=== PATIENT | female | born 1945 | race Caucasian/White ===

== ENCOUNTER 2020-02-14 12:59 | Outpatient (RCR) | payer MEDICARE, SELFPAY | END 2020-03-24 14:56 | disposition other institution (70) | LOC: HO.PT 12:59 | PROVIDERS: PCP Internal Medicine Geriatric Medicine; Visit Provider Orthopaedic Surgery | DX: S42.002D Fracture of unspecified part of left clavicle, subsequent encounter for fracture with routine healing (principal) | CPT/HCPCS: 97110; 97162; 97535 ==

== ENCOUNTER 2020-09-09 11:36 | Emergency (ER) | payer MEDICARE, SELFPAY ==
--- NOTE | ~2020-09-09 | XR_ITS ---
EXAMINATION: XR ABDOMEN KUB CLINICAL INDICATION: No bowel movements for 2 weeks. COMPARISON: None TECHNIQUE: AP view of the abdomen. FINDINGS: There is moderate scattered stool and gas seen throughout the colon without significant distention. Moderate stool is seen in the rectum and sigmoid colon. The small bowel loops are normal caliber. There is no organomegaly. No gross bony abnormality. XR/XR KUB IMPRESSION: Mild rectal impaction with moderate constipation.
[2020-09-09 12:20] VITALS: BP 115/78; PULSE 106; RESP 16; TEMP 36.8; O2SAT 94; BMI 18.5
[2020-09-09 12:37] LABS: MANUAL DIFF FLAG NO
[2020-09-09 12:40] LABS: Basophils Absolute Auto 0.1 X10*3/uL (0.0-0.2); Basophils Percent Auto 0.6 % (0-2); Eosinophils Absolute Auto 0.4 X10*3/uL (0.0-0.4); Eosinophils Percent Auto 3.5 % (0-4); Hematocrit 48.9 % (37-47); Hemoglobin 15.6 g/dl (12.0-16.0); Imm Gran Abs Auto 0.04 X10*3/uL (0.00-0.03); Imm Gran Pct Auto 0.3 % (0.0-0.4); Lymphocytes Absolute Auto 3.3 X10*3/uL (1.2-4.9); Lymphocytes Percent Auto 28.4 % (20-40); Mean Corpuscular HGB Conc 31.9 g/dl (31.0-35.0); Mean Corpuscular Hemoglobin 29.7 pg (27.0-33.0); Mean Corpuscular Volume 93.1 fL (80-98); Mean Platelet Volume 10.5 fL (9.4-12.3); Monocytes Absolute Auto 0.7 X10*3/uL (0.1-1.2); Monocytes Percent Auto 6.3 % (2-11); Neutrophils Absolute Auto 7.1 X10*3/uL (2.0-8.3); Neutrophils Percent Auto 60.9 % (45-73); Platelet Count 291 X10*3/uL (160-400); Red Blood Count 5.25 X10*6/uL (4.20-5.50); Red Cell Distribution Width 14.7 % (11.0-16.0); White Blood Count 11.6 X10*3/uL (4.8-10.8)
[2020-09-09 13:05] LABS: Anion Gap 12 (12-20); Blood Urea Nitrogen 16 mg/dL (9-16); Calcium 10.5 mg/dL (8.4-10.2); Carbon Dioxide 31 mmol/L (22-29); Chloride 103 mmol/L (96-108); Creatinine Clr Calc Pharmacy 44.9; Estimated Glomerular Filt Rate > 60; Glucose Random 115 mg/dL (60-115); Sodium 142 mmol/L (135-145)
--- NOTE | 2020-09-09 15:51 | ED.GENADULT ---
HPI - General Adult General Chief complaint: General Medical Stated complaint: constipated x 3 weeks Time Seen by Provider: 09/09/20 15:51 Source: patient Mode of arrival: ambulatory Limitations: no limitations History of Present Illness HPI narrative: 75 y/o female with history of Alzehimer's dementia, diabetes, HTN, HLD, constipation presents to the ED from home with her family with constipation x2 weeks. Patient is non-verbal and history is provided by her son. He reports she has been taking her metamucil and stool softner with no bowel movement in 2 weeks. She has been eating and drinking normally. She has had constipation in the past requiring disimpaction. Her family gave her another laxative medication that was successful for her in the past this time it did not work. Today she started having vomiting so they brought her in for evaluation. No fever, chills. complaint: constipation Onset (ago): week(s) (2) Location: abdomen Radiation: non-radiation Severity: moderate Relieving factors: none Exacerbating factors: none Associated symptoms: denies other symptoms Treatments prior to arrival: other (laxative) Related Data Previous Rx's Medication Instructions Recorded polyethylene glycol 3350 [Miralax] 17 g PO DAILY #119 g 09/09/20 sodium phosphates [Fleet Enema] 118 ml [place] BEDTIME PRN #532 ml 09/09/20 Allergies Allergy/AdvReac Type Severity Reaction Status Date / Time Penicillins [PENICILLINS] Allergy Mild UNKNOWN Verified 09/09/20 12:18 morphine [Morphine] Allergy Unknown UNKNOWN Verified 09/09/20 12:18 From Percocet Allergy Unknown UNKNOWN Uncoded 11/28/19 14:56 Review of Systems Review of Systems: Constitutional: No Fever, No Chills ENT/Mouth: No Swallowing Difficulty Cardiovascular: No SOB, No Orthopnea, No Edema Respiratory: No Cough, No Sputum, No Wheezing, No dyspnea Gastrointestinal: + Nausea,+ Vomiting, No Diarrhea, No abdominal Pain Skin: No Skin Lesions, No rash Neuro: + Weakness Heme/Lymph: No Bruising, No Lymphadenopathy PMFSH Past Medical History Attestation statement: The following information was validated with the patient. Medical History Alzheimer disease Diabetes GERD (gastroesophageal reflux disease) HTN (hypertension) Hyperlipidemia Social History Social History Advance Directives: No Advance Directives Information Provided: Yes Physical Exam Vital Signs: Vital Signs: Last Vital Signs Temp 97.9 F 09/09/20 16:00 Pulse 82 09/09/20 16:00 Resp 15 09/09/20 16:00 BP 140/69 H 09/09/20 16:00 Pulse Ox 95 09/09/20 16:00 Body Mass Index 18.5 Appearance: Lethargic,. No acute distress. Eyes: Pupils equal, round and reactive to light. ENT: Pharynx normal. Neck: Normal inspection. Neck supple. CVS: Normal heart rate and rhythm. Pulses normal. Respiratory: No respiratory distress. Breath sounds normal. Abdomen: Soft and nontender. +BS x4 Skin: Skin warm and dry. Normal skin color. Normal skin turgor. No rashes. Extremities: No lower extremity edema. Neuro: nonverbal, does not follow commands. Course Course Course Narrative: 75 y/o female presenting with constipation x2 weeks and new onset vomiting today. KUB without any air/fluid levels of signs of obstruction. Abd is soft. D/w Dr. Patton. Hold off on CT scan for now. Will give IVF, Zofran and assess need for manual disimpaction. Reevaluation(s) Reevaluation #1: Manual disimpaction successful with large volume soft brown stool in rectal vault. Patient tolerated well. Given additional fleet enema and PO dulcolax. No further nausea or vomiting. Recommend following up with for further assessment of recurrent, severe constipation. Stable for d/c home with family. Procedures Rectal Disimpaction Time out performed rectal disimpaction: No Indication: fecal impaction Procedural Sedation: No Sedation/Analgesia: none Technique: manual disimpaction with gloved finger Result: significant stool output Patient Tolerated Procedure: well Complications: none Medical Decision Making Lab Data Result diagrams: 09/09/20 12:31 09/09/20 12:31 Labs: Lab Results 09/09/20 09/09/20 Range/Units 12:31 12:31 WBC 11.6 H (4.8-10.8) X10*3/uL RBC 5.25 (4.20-5.50) X10*6/uL Hgb 15.6 (12.0-16.0) g/dl Hct 48.9 H (37-47) % MCV 93.1 (80-98) fL MCH 29.7 (27.0-33.0) pg MCHC 31.9 (31.0-35.0) g/dl RDW 14.7 (11.0-16.0) % Plt Count 291 (160-400) X10*3/uL MPV 10.5 (9.4-12.3) fL Immature Gran % (Auto) 0.3 (0.0-0.4) % Neut % (Auto) 60.9 (45-73) % Lymph % (Auto) 28.4 (20-40) % [place] % (Auto) 6.3 (2-11) % Eos % (Auto) 3.5 (0-4) % Baso % (Auto) 0.6 (0-2) % Lymph # (Auto) 3.3 (1.2-4.9) X10*3/uL [place] # (Auto) 0.7 (0.1-1.2) X10*3/uL Eos # (Auto) 0.4 (0.0-0.4) X10*3/uL Baso # (Auto) 0.1 (0.0-0.2) X10*3/uL Abs Immat Gran (auto) 0.04 H (0.00-0.03) X10*3/uL Absolute Neuts (auto) 7.1 (2.0-8.3) X10*3/uL Absolute Nucleated RBC 0.000 (0.0-0.012) X10*3/uL Nucleated RBC % (auto) 0.0 (0.0-0.2) /100WBC Sodium 142 (135-145) mmol/L Potassium 4.0 (3.3-5.1) mmol/L Chloride 103 (96-108) mmol/L Carbon Dioxide 31 H (22-29) mmol/L Anion Gap 12 (12-20) BUN 16 (9-16) mg/dL Creatinine 0.85 (0.5-1.4) mg/dL Estim Creat Clear Calc 44.9 Estimated GFR > 60 Random Glucose 115 (60-115) mg/dL Calcium 10.5 H (8.4-10.2) mg/dL Discharge Plan Discharge Clinical Impression: Constipation Qualifiers: Constipation type: unspecified constipation type Qualified Code(s): K59.00 - Constipation, unspecified Patient Disposition: Home, Self-Care Instructions: Constipation (ED), Fleet Enema (ED) Additional Instructions: Increase oral fluid intake. Start taking Miralax 17 grams each morning. Follow up with GI specialist for further management. If you develop new or worsening symptoms call 911 or come back to the ER for further evaluation. Prescriptions: New polyethylene glycol 3350 [Miralax] 17 gram/dose powder 17 g PO DAILY Qty: 119 RF: 0 Fleet Enema 19-7 gram/118 mL enema 118 ml [place] BEDTIME PRN (Reason: constipation) Qty: 532 RF: 0 Referrals: Cresencio Ramsay [Physician] - 1 week (recurrent, severe constipation requiring disimpaction)
[2020-09-09 16:00] VITALS: BP 140/69; PULSE 82; RESP 15; TEMP 36.6; O2SAT 95
[2020-09-09] MEDS: 0.9 % Sodium Chloride 1,000 ML 999 ML IVCONT (16:38)
[2020-09-09] MEDS: ondansetron HCL 4 MG/2 ML VIAL IVPUSH (16:39)
[2020-09-09] MEDS: Sodium Phosphate,Mono-Dibasic 133 ML ENEMA PR ×2 (16:46→18:41)
[2020-09-09] MEDS: bisacodyL 5 MG TABLET.DR 10 MG PO (18:41)
[2020-09-09 18:43] VITALS: BP 154/95; PULSE 88; RESP 16; O2SAT 95
--- NOTE | 2020-09-09 19:04 | PC.NURSE ---
Enema administered to patient per MAY. Will re eval patient in 30 mins. Plan for discharge after completion of fleet enema.
[2020-09-09 19:07] LABS: Glucose Urine UA NEG (NEG); Leukocyte Esterase Urine TRACE (NEG); Nitrite Urine NEG (NEG); Specific Gravity - Urine >= 1.030 (1.005-1.025); UACC Culture Trigger YES; Urine Blood NEG (NEG); Urine Ketones NEG (NEG); Urine Protein TRACE MG/DL (NEG-TRACE)
[2020-09-09 19:10] LABS: Appearance Urine CLEAR; Color Urine YELLOW
[2020-09-09 19:17] LABS: Bacteria Urine 1+ /LPF; Mucus Urine 4+ /LPF; RBC Urine 0-2 /HPF (0); Squamous Epithelial Cell Urine TRACE /LPF; UACC CULT YES
== END 2020-09-09 20:23 | disposition home or self-care (01) ==
PROVIDERS: Emergency Provider Emergency Medicine; PCP Internal Medicine
DX: K59.00 Constipation, unspecified (principal); E11.9 Type 2 diabetes mellitus without complications; I10 Essential (primary) hypertension; G30.9 Alzheimer's disease, unspecified; F02.80 Dementia in other diseases classified elsewhere, unspecified severity, without behavioral disturbance, psychotic disturbance, mood disturbance, and anxiety
CPT/HCPCS: 36415; 51701; 74018; 80048; 81001; 85025; 87086; 96361; 96374; 99284; 99285; J2405

== ENCOUNTER 2021-02-13 21:18 | Inpatient (IN) | payer MEDICARE, SELFPAY ==
[2021-02-13 21:27] VITALS: BP 118/70; PULSE 118; O2SAT 92
[2021-02-13 21:32] VITALS: BP 115/82; PULSE 125; RESP 16; TEMP 36.2; O2SAT 95; BMI 18.3
--- NOTE | 2021-02-13 21:38 | ECG_ITS ---
Test Reason : SYNCOPE Blood Pressure : / mmHG Vent. Rate : 124 BPM Atrial Rate : 124 BPM P-R Int : 118 ms QRS Dur : 072 ms QT Int : 328 ms P-R-T Axes : 033 -66 052 degrees QTc Int : 471 ms Sinus tachycardia Left anterior fascicular block Anterior infarct , age undetermined Abnormal ECG When compared with ECG of 03-JUL-2014 11:12, No significant change was found Referred By: Generic ED Physician Electronically Signed By:QI DELGADILLO
--- NOTE | 2021-02-13 23:16 | ED.GENADULT ---
HPI - General Adult General Chief complaint: Weakness Stated complaint: syncopal episode Time Seen by Provider: 02/13/21 23:03 Source: family and EMS Mode of arrival: EMS Limitations: other (Nonverbal at baseline, advanced Alzheimer's) History of Present Illness HPI narrative: Patient is brought to the emergency room by EMS. The reports that the patient at baseline can only walk but he has to hold her. The states that patient use the restroom, he helped her to stand up and walked her back to the bed. The patient told her I backwards, the along to her and lowered her to the bed. Patient did not fall, did not lose consciousness. Family is unsure if the patient actually lost consciousness, but it was fairly brief, few seconds. Then patient was put in bed and patient went to sleep until EMS got her. The reports that they have noted that since yesterday the patient is less active than usual, usually patient is able to smile, seems to listing to conversations. Today, patient seems more detached. Related Data Previous Rx's Medication Instructions Recorded polyethylene glycol 3350 17 17 g PO DAILY #119 g 09/09/20 gram/dose oral powder (Miralax) sodium phosphates 19 gram-7 118 ml [place] BEDTIME PRN #532 ml 09/09/20 gram/118 mL enema (Fleet Enema) Allergies Allergy/AdvReac Type Severity Reaction Status Date / Time Penicillins [PENICILLINS] Allergy Mild UNKNOWN Verified 09/09/20 12:18 morphine [Morphine] Allergy Unknown UNKNOWN Verified 09/09/20 12:18 From Percocet Allergy Unknown UNKNOWN Uncoded 11/28/19 14:56 Review of Systems Review of Systems: Yes Unobtainable due to mental condition [facility] Past Medical History Medical History Alzheimer disease Diabetes GERD (gastroesophageal reflux disease) HTN (hypertension) Hyperlipidemia Social History Social History Advance Directives: No Advance Directives Information Provided: Yes Physical Exam Vital Signs: Vital Signs: Last Vital Signs Temp 100.0 F 02/13/21 23:40 Pulse 111 H 02/13/21 23:40 Resp 18 02/13/21 23:40 BP 111/82 02/13/21 23:40 Pulse Ox 98 02/13/21 23:40 BMI result Body Mass Index 18.3 Const: Other: Appearance: Alert. NonverbalNo acute distress. Eyes: Pupils equal, round and reactive to light. ENT: Pharynx normal. Neck: Normal inspection. Neck supple. No lymph nodes noted. No crepitus CVS: Tachycardic, heart rate approximately 120, Pulses normal. Normal S1 and S2 Respiratory: No respiratory distress. Breath sounds normal. No Wheezing. No rales Abdomen: Soft and nontender. No rigidity. No distention. Skin: Skin cool and dry. Normal skin color. Normal skin turgor. Extremities: No lower extremity edema. Neuro: Patient unable to cooperate due to history of advanced Alzheimer's dementia. Does not seem to have any acute stroke-like symptoms. Course Course Course Narrative: Patient was started on D5W for hypernatremia and ceftriaxone for the UTI. Patient being admitted. Patient's troponin is 24.3. No acute EKG changes. Medical Decision Making Lab Data Result diagrams: 02/13/21 23:57 02/13/21 23:57 Labs: Lab Results 02/13/21 02/13/21 02/13/21 Range/Units 23:57 23:57 23:57 WBC 14.0 H (4.8-10.8) X10*3/uL RBC 5.84 H (4.20-5.50) X10*6/uL Hgb 17.4 H (12.0-16.0) g/dl Hct 57.8 H (37.0-47.0) % MCV 99.0 H (80.0-98.0) fL MCH 29.8 (27.0-33.0) pg MCHC 30.1 L (31.0-35.0) g/dl RDW 13.6 (11.0-16.0) % Plt Count 295 (160-400) X10*3/uL MPV 11.9 (9.4-12.3) fL Immature Gran % (Auto) 0.4 (0.0-0.4) % Neut % (Auto) 67.1 (45-73) % Lymph % (Auto) 25.3 (20-40) % [place] % (Auto) 5.8 (2-11) % Eos % (Auto) 0.9 (0-4) % Baso % (Auto) 0.5 (0-2) % Lymph # (Auto) 3.5 (1.2-4.9) X10*3/uL [place] # (Auto) 0.8 (0.1-1.2) X10*3/uL Eos # (Auto) 0.1 (0.0-0.4) X10*3/uL Baso # (Auto) 0.1 (0.0-0.2) X10*3/uL Abs Immat Gran (auto) 0.05 H (0.00-0.03) X10*3/uL Absolute Neuts (auto) 9.4 H (2.0-8.3) x10*3/uL Absolute Nucleated RBC 0.000 (0.0-0.012) X10*3/uL Nucleated RBC % (auto) 0.0 (0.0-0.2) /100WBC PT 12.8 (9.9-13.0) SEC INR 1.1 (0.9-1.1) Sodium 155 H (135-145) mmol/L Potassium 4.6 (3.3-5.1) mmol/L Chloride 119 H (96-108) mmol/L Carbon Dioxide 22 (22-29) mmol/L Anion Gap 19 (12-20) BUN 53 H (9-16) mg/dL Creatinine 1.27 (0.5-1.4) mg/dL Estim Creat Clear Calc 27.4 Estimated GFR 41 Random Glucose 174 H (60-115) mg/dL Calcium 11.0 H (8.4-10.2) mg/dL Total Bilirubin 0.5 (0.0-1.0) mg/dL Direct Bilirubin 0.2 (0.0-0.5) mg/dL AST 52 H (5-31) U/L ALT 90 H (0-31) U/L Alkaline Phosphatase 119 H (39-117) U/L Troponin I High Sens (<3.5-17.0) ng/L Total Protein 8.9 H (6.5-8.0) g/dL Albumin 4.4 (3.5-5.0) g/dL Urine Color Urine Appearance Urine pH (5.0-8.0) Ur Specific [place] (1.005-1.025) Urine Protein (NEG-TRACE) MG/DL Urine Glucose (UA) (NEG) MG/DL Urine Ketones (NEG) MG/DL Urine Blood (NEG) Urine Nitrite (NEG) Ur Leukocyte Esterase (NEG) Urine RBC (0) /HPF Urine WBC (0-4) /HPF Ur Squamous Epith Cells /LPF Ur Renal Epithelial Cell /LPF Calcium Oxalate Crystal /LPF Amorphous Sediment /LPF Urine Bacteria /LPF COVID-19 (PETROS) (Negative) COVID-19 Clin Com 02/13/21 02/13/21 02/13/21 Range/Units 23:57 23:58 23:58 WBC (4.8-10.8) X10*3/uL RBC (4.20-5.50) X10*6/uL Hgb (12.0-16.0) g/dl Hct (37.0-47.0) % MCV (80.0-98.0) fL MCH (27.0-33.0) pg MCHC (31.0-35.0) g/dl RDW (11.0-16.0) % Plt Count (160-400) X10*3/uL MPV (9.4-12.3) fL Immature Gran % (Auto) (0.0-0.4) % Neut % (Auto) (45-73) % Lymph % (Auto) (20-40) % [place] % (Auto) (2-11) % Eos % (Auto) (0-4) % Baso % (Auto) (0-2) % Lymph # (Auto) (1.2-4.9) X10*3/uL [place] # (Auto) (0.1-1.2) X10*3/uL Eos # (Auto) (0.0-0.4) X10*3/uL Baso # (Auto) (0.0-0.2) X10*3/uL Abs Immat Gran (auto) (0.00-0.03) X10*3/uL Absolute Neuts (auto) (2.0-8.3) x10*3/uL Absolute Nucleated RBC (0.0-0.012) X10*3/uL Nucleated RBC % (auto) (0.0-0.2) /100WBC PT (9.9-13.0) SEC INR (0.9-1.1) Sodium (135-145) mmol/L Potassium (3.3-5.1) mmol/L Chloride (96-108) mmol/L Carbon Dioxide (22-29) mmol/L Anion Gap (12-20) BUN (9-16) mg/dL Creatinine (0.5-1.4) mg/dL Estim Creat Clear Calc Estimated GFR Random Glucose (60-115) mg/dL Calcium (8.4-10.2) mg/dL Total Bilirubin (0.0-1.0) mg/dL Direct Bilirubin (0.0-0.5) mg/dL AST (5-31) U/L ALT (0-31) U/L Alkaline Phosphatase (39-117) U/L Troponin I High Sens 24.3 H (<3.5-17.0) ng/L Total Protein (6.5-8.0) g/dL Albumin (3.5-5.0) g/dL Urine Color DK YELLOW Urine Appearance TURBID Urine pH 6.0 (5.0-8.0) Ur Specific [place] 1.025 (1.005-1.025) Urine Protein 1+ H (NEG-TRACE) MG/DL Urine Glucose (UA) NEG (NEG) MG/DL Urine Ketones NEG (NEG) MG/DL Urine Blood 2+ H (NEG) Urine Nitrite NEG (NEG) Ur Leukocyte Esterase 3+ H (NEG) Urine RBC 5-9 H (0) /HPF Urine WBC 15-29 H (0-4) /HPF Ur Squamous Epith Cells 1+ /LPF Ur Renal Epithelial Cell TRACE /LPF Calcium Oxalate Crystal 1+ /LPF Amorphous Sediment TRACE /LPF Urine Bacteria 3+ /LPF COVID-19 (PETROS) Negative (Negative) COVID-19 Clin Com See Note ECG Data Attestation: I personally reviewed and interpreted this ECG as follows: (Sinus tachycardia, 124, no C7 visualization, no T-wave inversion, QTC 471) Discharge Plan Discharge Clinical Impression: Acute UTI, Acute hypernatremia, Near syncope Patient Disposition: Admitted As Inpatient
[2021-02-13 23:40] VITALS: BP 111/82; PULSE 111; RESP 18; TEMP 37.8; O2SAT 98
[2021-02-14] VITALS (9 sets, daily range): BP systolic 97–116; BP diastolic 63–78; PULSE 60–85; RESP 16–18; TEMP 36.2–36.9; O2SAT 94–96
[2021-02-14 00:09] LABS: MANUAL DIFF FLAG NO
[2021-02-14] MEDS: 0.9 % Sodium Chloride 1,000 ML 999 ML IVCONT (00:12)
[2021-02-14 00:17] LABS: Hemoglobin 17.4 g/dl (12.0-16.0); Imm Gran Pct Auto 0.4 % (0.0-0.4)
[2021-02-14 00:19] LABS: Basophils Absolute Auto 0.1 X10*3/uL (0.0-0.2); Basophils Percent Auto 0.5 % (0-2); Eosinophils Absolute Auto 0.1 X10*3/uL (0.0-0.4); Eosinophils Percent Auto 0.9 % (0-4); Imm Gran Abs Auto 0.05 X10*3/uL (0.00-0.03); Lymphocytes Absolute Auto 3.5 X10*3/uL (1.2-4.9); Lymphocytes Percent Auto 25.3 % (20-40); Mean Corpuscular HGB Conc 30.1 g/dl (31.0-35.0); Mean Corpuscular Hemoglobin 29.8 pg (27.0-33.0); Mean Platelet Volume 11.9 fL (9.4-12.3); Monocytes Absolute Auto 0.8 X10*3/uL (0.1-1.2); Monocytes Percent Auto 5.8 % (2-11); Neutrophils Absolute Auto 9.4 x10*3/uL (2.0-8.3); Neutrophils Percent Auto 67.1 % (45-73); Platelet Count 295 X10*3/uL (160-400); Red Blood Count 5.84 X10*6/uL (4.20-5.50); Red Cell Distribution Width 13.6 % (11.0-16.0)
[2021-02-14 00:22] LABS: Hematocrit 57.8 % (37.0-47.0)
[2021-02-14 00:23] LABS: INTERNATIONAL NORM RATIO 1.1 (0.9-1.1)
[2021-02-14 00:24] LABS: COVID-19 Test Negative (Negative)
[2021-02-14 00:26] LABS: Appearance Urine TURBID; Color Urine DK YELLOW; Glucose Urine UA NEG (NEG); Leukocyte Esterase Urine 3+ (NEG); Nitrite Urine NEG (NEG); Specific Gravity - Urine 1.025 (1.005-1.025); UACC Culture Trigger YES; Urine Blood 2+ (NEG); Urine Ketones NEG (NEG); Urine Protein 1+ MG/DL (NEG-TRACE)
[2021-02-14 00:26] LABS: Prothrombin Time 12.8 SEC (9.9-13.0)
[2021-02-14 00:35] LABS: Calcium Oxalate Crystals Urine 1+ /LPF; Renal Epithelial Cells Urine TRACE /LPF; Squamous Epithelial Cell Urine 1+ /LPF
[2021-02-14 00:36] LABS: Amorphous Sediment Urine TRACE /LPF; Bacteria Urine 3+ /LPF
[2021-02-14 00:37] LABS: Troponin-I High Sensitivity 24.3 ng/L (<3.5-17.0)
[2021-02-14 00:49] LABS: Alanine Aminotransferase 90 U/L (0-31); Albumin Level 4.4 g/dL (3.5-5.0); Alkaline Phosphatase 119 U/L (39-117); Anion Gap 19 (12-20); Aspartate Amino Transferase 52 U/L (5-31); Bilirubin Direct 0.2 mg/dL (0.0-0.5); Bilirubin Total 0.5 mg/dL (0.0-1.0); Blood Urea Nitrogen 53 mg/dL (9-16); Carbon Dioxide 22 mmol/L (22-29); Chloride 119 mmol/L (96-108); Creatinine Clr Calc Pharmacy 27.4; Estimated Glomerular Filt Rate 41; Glucose Random 174 mg/dL (60-115); Potassium 4.6 mmol/L (3.3-5.1); Sodium 155 mmol/L (135-145); Total Protein 8.9 g/dL (6.5-8.0)
--- NOTE | 2021-02-14 01:22 | P.HPHOSP_ITS ---
History of Present Illness Date of Service: 02/14/21 Chief Complaint: altered mental status this is a 76-year-old female with past medical history is of Alzheimer's dementia, nonverbal at baseline, diabetes, hypertension, hyperlipidemia, who was brought into the hospital by her after a near syncopal episode. Patient is nonverbal at baseline with severe advanced dementia and therefore history is obtained from ED physician and . According to the , patient usually walks with social worker assistant, he took her to the bathroom, on walking her back to her bed, she became really weak and almost felt backward but no clear evidence of loss of consciousness. This lasted few seconds, he put her to bed and called EMS. He reports that at baseline she smiles, and usually listens to conversations and follows along but since yesterday she has been more detached and less engaged. I am unable to obtain review of system due to patient's medical condition on arrival to the ED patient's vital signs are significant for a temp of a 100.0?, heart rate of 125, respiratory rate of 16, blood pressure 115/82, satting 95% on room air Labs are significant for WBC count of 13.0, hemoglobin of 17.4, sodium of 155, chloride of 119, BUN of 53, creatinine of 1.27 with a baseline around 0.8, troponin of 24, UA positive for leukocyte Estrace and WBC, patient will be admitted for further management unable to obtain complete past medical history due to patient's medical condition Review of Systems Review of Systems: Yes all other systems are reviewed and are negative PMFSH Medical History Alzheimer disease Diabetes GERD (gastroesophageal reflux disease) HTN (hypertension) Hyperlipidemia Pertinent family history: unable to obtain Social History Household Members: Unknown / Unable to assess Housing: Unknown / Unable to assess Unable to assess alcohol history related to: Unknown Patient Tobacco Use Status: Tobacco use Unknown Use of substances other than those prescribed or required for medical reasons: Unknown Advance Directives: No Advance Directives Information Provided: Yes Recently lost weight without trying: Unsure How much weight loss: Unsure Patient : No : No Poor oral hygiene: No Meds Allergies Allergy/AdvReac Type Severity Reaction Status Date / Time Penicillins [PENICILLINS] Allergy Mild UNKNOWN Verified 09/09/20 12:18 morphine [Morphine] Allergy Unknown UNKNOWN Verified 09/09/20 12:18 From Percocet Allergy Unknown UNKNOWN Uncoded 11/28/19 14:56 Active Medications: Current Medications Dextrose (D5w) 1,000 mls @ 125 mls/hr IVCONT .Q8H ADILIA Ceftriaxone Sodium 1 gm/ (Sodium Chloride) 50 mls @ 100 mls/hr IV ONCE ONE Stop: 02/14/21 01:36 Levofloxacin (Levaquin) 500 mg in 100 mls @ 100 mls/hr IV ONCE ONE Stop: 02/14/21 02:06 Physical Exam Vital Signs and Narrative: Vital Signs: Last Vital Signs Temp 100.0 F 02/13/21 23:40 Pulse 111 H 02/13/21 23:40 Resp 18 02/13/21 23:40 BP 111/82 02/13/21 23:40 Pulse Ox 98 02/13/21 23:40 BMI result Body Mass Index 18.3 Const: Other: patient is awake, nonverbal, does not answer questions or follows any commands General: no acute distress Eyes: General: appearance normal, both eyes and all related structures Pupils: Equal, round and reactive pupils present Resp: Effort & Inspection: normal respiratory effort, able to speak in complete sentences and abnormal respiratory pattern Auscultation: clear to auscultation bilaterally Cardio: Rate: regular rate Rhythm: regular rhythm GI: Other: grimaces when I press on the abdomen , no rebound or guarding Palpation (GI): Soft to palpation Auscultation: normal bowel sounds Skin: General skin exam: no rashes or lesions noted Neuro: Cranial nerves: Yes Equal, round and reactive pupils present Extrem: General: Yes normal to inspection and Yes no pedal edema Results Labs CBC and Chem 7: 02/13/21 23:57 02/13/21 23:57 Labs: Laboratory Results - last 24 hr 02/13/21 02/13/21 02/13/21 23:57 23:57 23:57 MCV 99.0 H MCH 29.8 MCHC 30.1 L RDW 13.6 Plt Count 295 MPV 11.9 Immature Gran % (Auto) 0.4 Neut % (Auto) 67.1 Lymph % (Auto) 25.3 [place] % (Auto) 5.8 Eos % (Auto) 0.9 Baso % (Auto) 0.5 Lymph # (Auto) 3.5 [place] # (Auto) 0.8 Eos # (Auto) 0.1 Baso # (Auto) 0.1 Abs Immat Gran (auto) 0.05 H Absolute Neuts (auto) 9.4 H Absolute Nucleated RBC 0.000 Nucleated RBC % (auto) 0.0 PT 12.8 INR 1.1 Anion Gap 19 Estim Creat Clear Calc 27.4 Estimated GFR 41 Random Glucose 174 H Calcium 11.0 H Total Bilirubin 0.5 Direct Bilirubin 0.2 AST 52 H ALT 90 H Alkaline Phosphatase 119 H Troponin I High Sens Total Protein 8.9 H Albumin 4.4 Urine Color Urine Appearance Urine pH Ur Specific [place] Urine Protein Urine Glucose (UA) Urine Ketones Urine Blood Urine Nitrite Ur Leukocyte Esterase Urine RBC Urine WBC Ur Squamous Epith Cells Ur Renal Epithelial Cell Calcium Oxalate Crystal Amorphous Sediment Urine Bacteria COVID-19 (PETROS) COVID-19 [place] 02/13/21 02/13/21 02/13/21 23:57 23:58 23:58 MCV MCH MCHC RDW Plt Count MPV Immature Gran % (Auto) Neut % (Auto) Lymph % (Auto) [place] % (Auto) Eos % (Auto) Baso % (Auto) Lymph # (Auto) [place] # (Auto) Eos # (Auto) Baso # (Auto) Abs Immat Gran (auto) Absolute Neuts (auto) Absolute Nucleated RBC Nucleated RBC % (auto) PT INR Anion Gap Estim Creat Clear Calc Estimated GFR Random Glucose Calcium Total Bilirubin Direct Bilirubin AST ALT Alkaline Phosphatase Troponin I High Sens 24.3 H Total Protein Albumin Urine Color DK YELLOW Urine Appearance TURBID Urine pH 6.0 Ur Specific [place] 1.025 Urine Protein 1+ H Urine Glucose (UA) NEG Urine Ketones NEG Urine Blood 2+ H Urine Nitrite NEG Ur Leukocyte Esterase 3+ H Urine RBC 5-9 H Urine WBC 15-29 H Ur Squamous Epith Cells 1+ Ur Renal Epithelial Cell TRACE Calcium Oxalate Crystal 1+ Amorphous Sediment TRACE Urine Bacteria 3+ COVID-19 (PETROS) Negative COVID-19 Clin Com See Note Assessment and Plan (1) Acute UTI: Status: Acute (2) Acute hypernatremia: Status: Acute (3) Dehydration: Status: Acute (4) DOMO (acute kidney injury): Status: Acute (5) Near syncope: Status: Acute this is a 76-year-old female with past medical history of advanced dementia nonverbal, completely dependent presents to the hospital with near syncope/fall, and altered mentation found to have acute UTI # acute UTI - positive UA - increased confusion over the past day - has leukocytosis, with low-grade fever - with start IV antibiotics - follow cultures # DOMO - most likely secondary to dehydration - IV fluids - follow BMP # hypernatremia - most likely secondary to hypovolemic hypernatremia - overall picture looks hemoconcentrated - patient also looks dehydrated - patient start on D5 water - will follow BMP # near syncopal - most likely vasovagal secondary to dehydration as well as infection - no evidence of loss of consciousness - patient has been more withdrawn per family and has a positive UA as well as evidence of dehydration and DOMO - monitor DVT prophylaxis: heparin family at this time want patient to be full code Quality Stroke Does the patient have a stroke diagnosis?: No VTE Prior VTE?: No VTE Risk Level:: Medical - moderate - high VTE Device Contraindication: Treatment Not Indicated VTE Drug Contraindication: N/A - Med Ordered
[2021-02-14] MEDS: Dextrose 5 % 1,000 ML 125 ML IVCONT ×3 (01:30→17:24)
[2021-02-14] MEDS: cefTRIAXone sodium 1 GM in 0.9 % Sodium Chloride 50 ML IV ×2 (01:33→21:59)
[2021-02-14 01:39] LABS: Lactic Acid 1.7 mmol/L (0.5-2.0)
[2021-02-14] MEDS: levoFLOXacin/D5W 500 MG/100 ML PIGGYBACK 100 MG IV (02:00)
[2021-02-14] MEDS: Heparin Sodium,Porcine 5,000 UNIT/ML VIAL 5000 UNIT SUBCUT ×2 (04:15→14:45)
[2021-02-14 07:46] LABS: MANUAL DIFF FLAG NO
[2021-02-14 07:47] LABS: Basophils Absolute Auto 0.1 X10*3/uL (0.0-0.2); Basophils Percent Auto 0.6 % (0-2); Eosinophils Absolute Auto 0.1 X10*3/uL (0.0-0.4); Eosinophils Percent Auto 0.8 % (0-4); Hematocrit 48.8 % (37.0-47.0); Hemoglobin 14.7 g/dl (12.0-16.0); Imm Gran Abs Auto 0.04 X10*3/uL (0.00-0.03); Imm Gran Pct Auto 0.4 % (0.0-0.4); Lymphocytes Percent Auto 27.3 % (20-40); Mean Corpuscular HGB Conc 30.1 g/dl (31.0-35.0); Mean Corpuscular Hemoglobin 29.9 pg (27.0-33.0); Mean Corpuscular Volume 99.2 fL (80.0-98.0); Mean Platelet Volume 11.9 fL (9.4-12.3); Monocytes Absolute Auto 0.6 X10*3/uL (0.1-1.2); Monocytes Percent Auto 5.7 % (2-11); Neutrophils Percent Auto 65.2 % (45-73); Platelet Count 230 X10*3/uL (160-400); Red Blood Count 4.92 X10*6/uL (4.20-5.50); Red Cell Distribution Width 13.4 % (11.0-16.0); White Blood Count 10.8 X10*3/uL (4.8-10.8)
[2021-02-14 08:32] LABS: Blood Urea Nitrogen 42 mg/dL (9-16); Calcium 9.5 mg/dL (8.4-10.2); Creatinine Clr Calc Pharmacy 35.1; Estimated Glomerular Filt Rate 55; Glucose Random 240 mg/dL (60-115)
[2021-02-14 08:39] LABS: Anion Gap 13 (12-20); Carbon Dioxide 27 mmol/L (22-29); Chloride 117 mmol/L (96-108); Potassium 3.9 mmol/L (3.3-5.1); Sodium 153 mmol/L (135-145)
--- NOTE | 2021-02-14 10:22 | PM.PNNEP ---
Subjective Subjective Date of Service: 02/14/21 Interval history: Patient seen and examined Physical Exam Vital Signs: Vital Signs: Last Vital Signs Temp 100.0 F 02/13/21 23:40 Pulse 84 02/14/21 04:00 Resp 18 02/14/21 04:00 BP 98/71 02/14/21 04:00 Pulse Ox 98 02/13/21 23:40 BMI result Body Mass Index 18.3 Objective Data Labs CBC & Chem 7: 02/14/21 07:03 02/14/21 07:03 Labs: Laboratory Results - last 24 hr 02/13/21 02/13/21 02/13/21 23:57 23:57 23:57 WBC 14.0 H RBC 5.84 H Hgb 17.4 H Hct 57.8 H MCV 99.0 H MCH 29.8 MCHC 30.1 L RDW 13.6 Plt Count 295 MPV 11.9 Immature Gran % (Auto) 0.4 Neut % (Auto) 67.1 Lymph % (Auto) 25.3 [place] % (Auto) 5.8 Eos % (Auto) 0.9 Baso % (Auto) 0.5 Lymph # (Auto) 3.5 [place] # (Auto) 0.8 Eos # (Auto) 0.1 Baso # (Auto) 0.1 Abs Immat Gran (auto) 0.05 H Absolute Neuts (auto) 9.4 H Absolute Nucleated RBC 0.000 Nucleated RBC % (auto) 0.0 PT 12.8 INR 1.1 Sodium 155 H Potassium 4.6 Chloride 119 H Carbon Dioxide 22 Anion Gap 19 BUN 53 H Creatinine 1.27 Estim Creat Clear Calc 27.4 Estimated GFR 41 Random Glucose 174 H Lactic Acid Calcium 11.0 H Total Bilirubin 0.5 Direct Bilirubin 0.2 AST 52 H ALT 90 H Alkaline Phosphatase 119 H Troponin I High Sens Total Protein 8.9 H Albumin 4.4 Urine Color Urine Appearance Urine pH Ur Specific Distant Urine Protein Urine Glucose (UA) Urine Ketones Urine Blood Urine Nitrite Ur Leukocyte Esterase Urine RBC Urine WBC Ur Squamous Epith Cells Ur Renal Epithelial Cell Calcium Oxalate Crystal Amorphous Sediment Urine Bacteria COVID-19 (PETROS) COVID-19 Clin Com 02/13/21 02/13/21 02/13/21 23:57 23:58 23:58 WBC RBC Hgb Hct MCV MCH MCHC RDW Plt Count MPV Immature Gran % (Auto) Neut % (Auto) Lymph % (Auto) [place] % (Auto) Eos % (Auto) Baso % (Auto) Lymph # (Auto) [place] # (Auto) Eos # (Auto) Baso # (Auto) Abs Immat Gran (auto) Absolute Neuts (auto) Absolute Nucleated RBC Nucleated RBC % (auto) PT INR Sodium Potassium Chloride Carbon Dioxide Anion Gap BUN Creatinine Estim Creat Clear Calc Estimated GFR Random Glucose Lactic Acid Calcium Total Bilirubin Direct Bilirubin AST ALT Alkaline Phosphatase Troponin I High Sens 24.3 H Total Protein Albumin Urine Color DK YELLOW Urine Appearance TURBID Urine pH 6.0 Ur Specific Distant 1.025 Urine Protein 1+ H Urine Glucose (UA) NEG Urine Ketones NEG Urine Blood 2+ H Urine Nitrite NEG Ur Leukocyte Esterase 3+ H Urine RBC 5-9 H Urine WBC 15-29 H Ur Squamous Epith Cells 1+ Ur Renal Epithelial Cell TRACE Calcium Oxalate Crystal 1+ Amorphous Sediment TRACE Urine Bacteria 3+ COVID-19 (PETROS) Negative COVID-19 Clin Com See Note 02/14/21 02/14/21 02/14/21 01:17 07:03 07:03 WBC 10.8 RBC 4.92 Hgb 14.7 Hct 48.8 H MCV 99.2 H MCH 29.9 MCHC 30.1 L RDW 13.4 Plt Count 230 MPV 11.9 Immature Gran % (Auto) 0.4 Neut % (Auto) 65.2 Lymph % (Auto) 27.3 [place] % (Auto) 5.7 Eos % (Auto) 0.8 Baso % (Auto) 0.6 Lymph # (Auto) 3.0 [place] # (Auto) 0.6 Eos # (Auto) 0.1 Baso # (Auto) 0.1 Abs Immat Gran (auto) 0.04 H Absolute Neuts (auto) 7.0 Absolute Nucleated RBC 0.000 Nucleated RBC % (auto) 0.0 PT INR Sodium 153 H Potassium 3.9 Chloride 117 H Carbon Dioxide 27 Anion Gap 13 BUN 42 H Creatinine 0.99 Estim Creat Clear Calc 35.1 Estimated GFR 55 Random Glucose 240 H Lactic Acid 1.7 Calcium 9.5 D Total Bilirubin Direct Bilirubin AST ALT Alkaline Phosphatase Troponin I High Sens Total Protein Albumin Urine Color Urine Appearance Urine pH Ur Specific Distant Urine Protein Urine Glucose (UA) Urine Ketones Urine Blood Urine Nitrite Ur Leukocyte Esterase Urine RBC Urine WBC Ur Squamous Epith Cells Ur Renal Epithelial Cell Calcium Oxalate Crystal Amorphous Sediment Urine Bacteria COVID-19 (PETROS) COVID-19 Clin Com Procedures Date of Service Date of Service: 02/14/21 Assessment & Plan Assessment and plan (1) DOMO (acute kidney injury): Status: Acute (2) Hypernatremia: Status: Acute Assessment and Plan: DOMO due to renal hypoperfusion elevated serum sodium due to free water deficit REC D5W 125 cc/hr follow kidney function and electrolytes Thank you Time Spent With Patient Time: Total time spent is greater than 50% in coordination of care (as documented) at patient's floor/unit and/or counseling patient: Progress Note: Quality Stroke Does the patient have a stroke diagnosis?: No
--- NOTE | 2021-02-14 11:30 | PC.NURSE ---
patient opens eyes with stimulus, at bedside, pt remains npo at this time, turn/position to comfort, will continue to monitor.
[2021-02-14 12:50] LABS: Anion Gap 14 (12-20); Blood Urea Nitrogen 37 mg/dL (9-16); Calcium 9.2 mg/dL (8.4-10.2); Carbon Dioxide 26 mmol/L (22-29); Chloride 116 mmol/L (96-108); Creatinine Clr Calc Pharmacy 40.9; Estimated Glomerular Filt Rate > 60; Glucose Random 176 mg/dL (60-115); Potassium 3.6 mmol/L (3.3-5.1); Sodium 152 mmol/L (135-145)
--- NOTE | 2021-02-14 17:26 | PC.NURSE ---
patient sleeping, wakes to verbal stimulus, non verbal, compliance monitor intact, vss, will continue to monitor.
--- NOTE | 2021-02-14 17:54 | PC.NURSE ---
gave report on pt, will continue to monitor.
[2021-02-14 17:55] LABS: Glucose, Whole Blood 138 mg/dL (60-115)
[2021-02-14 18:38] LABS: Anion Gap 14 (12-20); Blood Urea Nitrogen 33 mg/dL (9-16); Calcium 9.2 mg/dL (8.4-10.2); Carbon Dioxide 25 mmol/L (22-29); Chloride 112 mmol/L (96-108); Creatinine Clr Calc Pharmacy 43.4; Estimated Glomerular Filt Rate > 60; Glucose Random 180 mg/dL (60-115); Potassium 3.6 mmol/L (3.3-5.1); Sodium 147 mmol/L (135-145)
--- NOTE | 2021-02-14 21:48 | CONS_ITS ---
DATE OF SERVICE: HISTORY OF PRESENT ILLNESS: I was asked to assist in the management of this 76-year-old patient with a history of Alzheimer's dementia and was nonverbal, who was brought to the hospital by her after a near syncopal episode and was noted to have an elevated serum creatinine and serum sodium. Apparently, the patient fell on the way to the bathroom on her back. She has been feeling weak, but there is no report of loss of consciousness. her who was at the bedside, he denies any nausea, vomiting, or diarrhea. There is no report of chest pain or shortness of breath. PAST MEDICAL HISTORY: Remarkable for hypertension, dyslipidemia, GERD, diabetes mellitus, Alzheimer disease. MEDICATIONS: As an outpatient were reviewed and current medications included D5 water, ceftriaxone, levofloxacin. ALLERGIES: SHE IS ALLERGIC TO PENICILLIN, MORPHINE, PERCOCET. SOCIAL HISTORY: Does not smoke. FAMILY HISTORY: Negative for kidney disease. REVIEW OF SYSTEMS: 10-point review of system is negative except for pertaining history of present illness. PHYSICAL EXAMINATION: VITAL SIGNS: Blood pressure is 98/71, heart rate 84, respiratory rate 18. She is afebrile. CONSTITUTIONAL: Looks her stated age. No acute distress. NEUROLOGIC: Alert, awake. HEAD: Atraumatic, normocephalic. NECK: Supple. LUNGS: Good air entry bilaterally. CARDIOVASCULAR: S1, S2. No rub. ABDOMEN: Soft, nontender. EXTREMITIES: No peripheral edema. LABORATORY DATA: Showed a white count 10.8, hemoglobin is 14.7, platelet count 230. Sodium 153, potassium 3.9, chloride 117, CO2 27, BUN 42, creatinine 0.99. Labs initially showed a sodium 155, creatinine 1.27. Urinalysis 5-9 RBCs, 15-29 WBC, 3+ leukocyte esterase. IMPRESSION: 1. Acute kidney injury. 2. Hypernatremia. This is a patient with acute kidney injury due to renal perfusion in the setting of intravascular volume depletion. The serum sodium is elevated consistent with a free water deficit due to poor oral fluid intake. She has normal baseline kidney function and my recommendation would be to go ahead with hypotonic fluid and to correct her free water deficit. We will continue to follow closely her kidney function and electrolytes along with the medical team. Thank you for allowing me to participate in the care of this patient. MD EVAN Chase/MODL / [phone]
[2021-02-14 22:38] LABS: Sodium 147 mmol/L (135-145)
[2021-02-15] VITALS (7 sets, daily range): BP systolic 97–168; BP diastolic 56–94; PULSE 67–83; RESP 16–22; TEMP 35.9–36.8; O2SAT 93–98
[2021-02-15 02:08] LABS: Sodium 147 mmol/L (135-145)
[2021-02-15] MEDS: Heparin Sodium,Porcine 5,000 UNIT/ML VIAL 5000 UNIT SUBCUT ×2 (02:31→14:23)
[2021-02-15 05:44] LABS: Hematocrit 45.9 % (37.0-47.0); Hemoglobin 14.1 g/dl (12.0-16.0); Mean Corpuscular HGB Conc 30.7 g/dl (31.0-35.0); Mean Corpuscular Hemoglobin 30.4 pg (27.0-33.0); Mean Corpuscular Volume 98.9 fL (80.0-98.0); Mean Platelet Volume 11.6 fL (9.4-12.3); Platelet Count 190 X10*3/uL (160-400); Red Blood Count 4.64 X10*6/uL (4.20-5.50); White Blood Count 11.7 X10*3/uL (4.8-10.8)
[2021-02-15 06:02] LABS: Anion Gap 14 (12-20); Blood Urea Nitrogen 23 mg/dL (9-16); Calcium 9.3 mg/dL (8.4-10.2); Carbon Dioxide 26 mmol/L (22-29); Chloride 112 mmol/L (96-108); Estimated Glomerular Filt Rate > 60; Glucose Random 102 mg/dL (60-115); Potassium 3.7 mmol/L (3.3-5.1); Sodium 148 mmol/L (135-145)
[2021-02-15] MEDS: Dextrose 5 % 1,000 ML 125 ML IVCONT ×2 (09:00→16:15)
--- NOTE | 2021-02-15 10:49 | PM.PNNEP ---
Subjective Subjective Date of Service: 02/16/21 Interval history: Patient seen and examined Family at bedside Physical Exam Vital Signs: Vital Signs: Last Vital Signs Temp 96.6 F L 02/15/21 07:24 Pulse 83 02/15/21 07:24 Resp 20 02/15/21 07:24 BP 168/94 H 02/15/21 07:24 Pulse Ox 93 02/15/21 07:24 BMI result Body Mass Index 18.3 Const: Other: patient is awake, nonverbal, does not answer questions or follows any commands General: no acute distress Eyes: General: appearance normal, both eyes and all related structures Pupils: Equal, round and reactive pupils present Resp: Effort & Inspection: normal respiratory effort, able to speak in complete sentences and abnormal respiratory pattern Auscultation: clear to auscultation bilaterally Cardio: Rate: regular rate Rhythm: regular rhythm GI: Other: grimaces when I press on the abdomen , no rebound or guarding Palpation (GI): Soft to palpation Auscultation: normal bowel sounds Skin: General skin exam: no rashes or lesions noted Neuro: Cranial nerves: Yes Equal, round and reactive pupils present Extrem: General: Yes normal to inspection and Yes no pedal edema Objective Data Labs CBC & Chem 7: 02/16/21 05:59 02/16/21 05:59 Labs: Laboratory Results - last 24 hr 02/14/21 02/14/21 02/14/21 12:22 17:45 18:06 WBC RBC Hgb Hct MCV MCH MCHC RDW Plt Count MPV Absolute Nucleated RBC Nucleated RBC % (auto) Sodium 152 H 147 H Potassium 3.6 3.6 Chloride 116 H 112 H Carbon Dioxide 26 25 Anion Gap 14 14 BUN 37 H 33 H Creatinine 0.85 0.80 Estim Creat Clear Calc 40.9 43.4 Estimated GFR > 60 > 60 POC Glucose 138 H Random Glucose 176 H 180 H Calcium 9.2 9.2 02/14/21 02/15/21 02/15/21 22:22 01:49 05:27 WBC 11.7 H RBC 4.64 Hgb 14.1 Hct 45.9 MCV 98.9 H MCH 30.4 MCHC 30.7 L RDW 13.0 Plt Count 190 MPV 11.6 Absolute Nucleated RBC 0.000 Nucleated RBC % (auto) 0.0 Sodium 147 H 147 H Potassium Chloride Carbon Dioxide Anion Gap BUN Creatinine Estim Creat Clear Calc Estimated GFR POC Glucose Random Glucose Calcium 02/15/21 05:27 WBC RBC Hgb Hct MCV MCH MCHC RDW Plt Count MPV Absolute Nucleated RBC Nucleated RBC % (auto) Sodium 148 H Potassium 3.7 Chloride 112 H Carbon Dioxide 26 Anion Gap 14 BUN 23 H Creatinine 0.74 Estim Creat Clear Calc 47.0 Estimated GFR > 60 POC Glucose Random Glucose 102 Calcium 9.3 Microbiology Microbiology Results: Microbiology 02/13/21 23:59 Blood - Venous Blood Culture - Preliminary No growth after 24 hours. 02/13/21 23:58 Blood - Venous Blood Culture - Preliminary No growth after 24 hours. Procedures Date of Service Date of Service: 02/15/21 Assessment & Plan Assessment and plan (1) DOMO (acute kidney injury): Status: Acute (2) Hypernatremia: Status: Acute Assessment and Plan: DOMO due to renal hypoperfusion elevated serum sodium due to free water deficit REC D5W 125 cc/hr follow kidney function and electrolytes Thank you Time Spent With Patient Time: Total time spent is greater than 50% in coordination of care (as documented) at patient's floor/unit and/or counseling patient: Time with patient: 15 - 24 minutes Progress Note: Quality Stroke Does the patient have a stroke diagnosis?: No
--- NOTE | 2021-02-15 10:52 | HO.PM.IMPN ---
Subjective Subjective Date of Service: 02/15/21 Interval History: the patient was seen and evaluated this morning Laying in bed, looks comfortable at the bedside, feels the patient has improved a little since yesterday Denies any fever, chills or shortness of breath No reported other overnight events. Systemic review: Nonverbal but denied any pain, fever or nausea Physical Exam Vital Signs: Vital Signs: Last Vital Signs Temp 96.6 F L 02/15/21 07:24 Pulse 83 02/15/21 07:24 Resp 20 02/15/21 07:24 BP 168/94 H 02/15/21 07:24 Pulse Ox 93 02/15/21 07:24 BMI result Body Mass Index 18.3 Const: Other: Constitutional : Alert, interactive, not in distress Neck : Normal inspection, Supple Cardiovascular : RRR, S1 S2, no lower extremity edema Respiratory : Good bilateral air entry, no crackles, wheezes or rhonchi Gastrointestinal: soft, lax, Normal bowel sounds, Non tender Skin : Warm, Dry Neurological : Alert, nonverbal, No focal deficit Objective Data Active Medications Acetaminophen (Acetaminophen 325 Mg Tablet) 650 mg PO Q6H PRN PRN Reason: Pain, Mild (Pain Scale 1-3) Amlodipine Besylate (Amlodipine Besylate 10 Mg Tablet) 10 mg PO DAILY [facility]; Protocol Aspirin (Aspirin 81 Mg Tab.Chew) 81 mg PO DAILY [facility] Docusate Sodium (Docusate Sodium 100 Mg Capsule) 100 mg PO DAILY PRN PRN Reason: Constipation Docusate Sodium (Docusate Sodium 100 Mg Capsule) 100 mg PO DAILY [facility] Donepezil HCl (Donepezil Hcl 10 Mg Tablet) 10 mg PO BEDTIME [facility] Heparin Sodium (Porcine) (Heparin Sodium,Porcine 5,000 Unit/Ml Vial) 5,000 unit SUBCUT Q12H [facility] Last Admin: 02/15/21 02:31 Dose: 5,000 unit Documented by: BILLY Ceftriaxone Sodium 1 gm/ (Sodium Chloride) 50 mls @ 100 mls/hr IV Q24H [facility] Last Infusion: 02/14/21 23:11 Dose: 0 mls/hr Documented by: BILLY Dextrose (D5w) 1,000 mls @ 125 mls/hr IVCONT .Q8H [facility] Stop: 02/15/21 22:00 Last Admin: 02/15/21 09:00 Dose: 125 mls/hr Documented by: MARGY Memantine (Memantine Hcl 10 Mg Tablet) 10 mg PO BID [facility] Omeprazole (Omeprazole 20 Mg Capsule.Dr) 20 mg PO DAILY [facility] Ondansetron HCl (Ondansetron Hcl 4 Mg/2 Ml Vial) 4 mg IVPUSH Q8H PRN PRN Reason: Nausea and Vomiting Pharmacy Consult (Consult Rx Perform Med Rec) 1 each MISCELLANE ONCE PRN PRN Reason: Consult order Polyethylene Glycol (Polyethylene Glycol 3350 17 Gm Powd.Pack) 17 gm PO DAILY [facility] Last Admin: 02/15/21 10:39 Dose: Not Given Documented by: JESSICA Non-Admin Reason: Diarrhea Sertraline HCl (Sertraline Hcl 25 Mg Tablet) 25 mg PO DAILY [facility] Labs CBC & Chem 7: 02/15/21 05:27 02/15/21 05:27 Labs: Laboratory Results - last 24 hr 02/14/21 02/14/21 02/14/21 12:22 17:45 18:06 MCV MCH MCHC RDW Plt Count MPV Absolute Nucleated RBC Nucleated RBC % (auto) Anion Gap 14 14 Estim Creat Clear Calc 40.9 43.4 Estimated GFR > 60 > 60 POC Glucose 138 H Random Glucose 176 H 180 H Calcium 9.2 9.2 02/15/21 02/15/21 05:27 05:27 MCV 98.9 H MCH 30.4 MCHC 30.7 L RDW 13.0 Plt Count 190 MPV 11.6 Absolute Nucleated RBC 0.000 Nucleated RBC % (auto) 0.0 Anion Gap 14 Estim Creat Clear Calc 47.0 Estimated GFR > 60 POC Glucose Random Glucose 102 Calcium 9.3 Microbiology Microbiology Results: Microbiology 02/13/21 23:59 Blood Culture - Preliminary Blood - Venous No growth after 24 hours. 02/13/21 23:58 Blood Culture - Preliminary Blood - Venous No growth after 24 hours. Assessment and Plan (1) Hypernatremia: Status: Acute (2) DOMO (acute kidney injury): Status: Acute (3) Acute UTI: Status: Acute Assessment and Plan: this is a 76-year-old female with past medical history of advanced dementia nonverbal, completely dependent presents to the hospital with near syncope/fall, and altered mentation found to have acute UTI # acute UTI Pending urine culture Continue ceftriaxone IV # DOMO secondary to dehydration Resolving Continue IV fluids follow BMP # Metabolic encephalopathy 2/2 hypernatremia Mentation improving as Na Improved to 148 secondary to hypovolemic hypernatremia Continue D5 water Nephrology following follow BMP # near syncopal likely vasovagal secondary to dehydration as well as infection no evidence of loss of consciousness DVT prophylaxis: heparin Quality Stroke Does the patient have a stroke diagnosis?: No VTE Prior VTE?: No VTE Risk Level:: Medical - moderate - high VTE Device Contraindication: Treatment Not Indicated VTE Drug Contraindication: N/A - Med Ordered
[2021-02-15] MEDS: Aspirin 81 MG TAB.CHEW PO (11:05)
[2021-02-15] MEDS: Memantine HCl 10 MG TABLET PO ×2 (11:05→21:18)
[2021-02-15] MEDS: Sertraline HCL 25 MG TABLET PO (11:05)
[2021-02-15] MEDS: Omeprazole 20 MG CAPSULE.DR PO (11:06)
[2021-02-15] MEDS: amLODIPine Besylate 10 MG TABLET PO (11:08)
--- NOTE | 2021-02-15 13:24 | MHC.CM.PN ---
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
--- NOTE | 2021-02-15 15:29 | MHC.SL.SWA ---
Speech Pathologist Impression: Risk of Aspiration Oralpharyngeal Dysphagia Risk of Aspiration Due to: Reduced Cognition Liquid Consistency and Strategies for Safe Swallow: Liquid Intake Recommendation: Honey Thick Liquid Intake Strategies: Small Sips No Straws Solid Food Consistency: Dietary Recommendations: Pureed (NDD1) Additional Modifications to Solid Foods: Recommend PUREED (NDD1) solids and HONEY THICK liquids by teaspoon or controlled cup sip with pills CRUSHED in PUREE. Patient requires 1:1 assistance feeding. Continue strict aspiration precautions. CHICKEN HANGER will continue to follow this patient to monitor tolerance, re-assess potential for upgrade as appropriate and provide support for family. Oral Medication Intake: Crushed with Puree Compensatory Strategies and Precautions to be Taken for Safe Swallow: Sitting Upright (90 deg) No Straw Liquids from Cup Liquids from Spoon Small Bites and Sips Alternate Liquids/Solids Rate of Ingestion Change Oral Check Supervision While Eating and Drinking for Safe Swallow: Total Assistance Swallowing Recommended Treatments: Compens. Strategy Educat. Recommendation for Speech: Inpatient Speech Therapy M-[facility] [place] message sent to , RD, RN. CHICKEN HANGER updated diet order in [facility]. Preparation Plant Repairer Clinican/Clinical Fellow: No Supervisory Statement: I have reviewed and agree with the student/clinical fellow's documentation: N/A Speech Language Pathologist: Trisha Dubois M.A., CCC-CHICKEN HANGER
[2021-02-15 15:43] LABS: Anion Gap 14 (12-20); Blood Urea Nitrogen 18 mg/dL (9-16); Calcium 8.7 mg/dL (8.4-10.2); Carbon Dioxide 24 mmol/L (22-29); Chloride 111 mmol/L (96-108); Estimated Glomerular Filt Rate > 60; Glucose Random 147 mg/dL (60-115); Potassium 3.5 mmol/L (3.3-5.1); Sodium 145 mmol/L (135-145)
[2021-02-15] MEDS: cefTRIAXone sodium 1 GM in 0.9 % Sodium Chloride 50 ML IV (21:17)
[2021-02-15] MEDS: Donepezil HCl 10 MG TABLET PO (21:18)
[2021-02-16] VITALS (8 sets, daily range): BP systolic 82–132; BP diastolic 61–70; PULSE 62–83; RESP 16–18; TEMP 36.3–36.8; O2SAT 95–100
[2021-02-16] MEDS: Heparin Sodium,Porcine 5,000 UNIT/ML VIAL 5000 UNIT SUBCUT ×2 (02:14→13:22)
[2021-02-16 06:22] LABS: Hematocrit 43.1 % (37.0-47.0); Hemoglobin 13.3 g/dl (12.0-16.0); Mean Corpuscular HGB Conc 30.9 g/dl (31.0-35.0); Mean Corpuscular Hemoglobin 29.8 pg (27.0-33.0); Mean Corpuscular Volume 96.4 fL (80.0-98.0); Mean Platelet Volume 12.2 fL (9.4-12.3); Platelet Count 188 X10*3/uL (160-400); Red Blood Count 4.47 X10*6/uL (4.20-5.50); Red Cell Distribution Width 12.8 % (11.0-16.0); White Blood Count 9.5 X10*3/uL (4.8-10.8)
[2021-02-16 06:50] LABS: Anion Gap 12 (12-20); Blood Urea Nitrogen 12 mg/dL (9-16); Calcium 9.4 mg/dL (8.4-10.2); Carbon Dioxide 27 mmol/L (22-29); Chloride 113 mmol/L (96-108); Creatinine Clr Calc Pharmacy 50.4; Estimated Glomerular Filt Rate > 60; Glucose Random 97 mg/dL (60-115); Potassium 3.9 mmol/L (3.3-5.1); Sodium 148 mmol/L (135-145)
[2021-02-16] MEDS: Dextrose 5 % 1,000 ML 125 ML IVCONT ×2 (08:45→17:01)
[2021-02-16] MEDS: Omeprazole 20 MG CAPSULE.DR PO (08:46)
[2021-02-16] MEDS: Docusate Sodium 100 MG CAPSULE PO (08:46)
[2021-02-16] MEDS: Sertraline HCL 25 MG TABLET PO (08:46)
[2021-02-16] MEDS: Aspirin 81 MG TAB.CHEW PO (08:46)
[2021-02-16] MEDS: amLODIPine Besylate 10 MG TABLET PO (08:46)
[2021-02-16] MEDS: polyethylene glycoL 3350 17 GM POWD.PACK PO (08:47)
[2021-02-16] MEDS: Memantine HCl 10 MG TABLET PO ×2 (08:47→22:19)
--- NOTE | 2021-02-16 09:22 | HO.PM.IMPN ---
Subjective Subjective Date of Service: 02/16/21 Interval History: the patient was seen and evaluated this morning Laying in bed, looks comfortable, more sleepy this morning at the bedside, feels the patient more sleepy today than yesterday Denies any fever, chills or shortness of breath No reported other overnight events. Systemic review: Nonverbal end of very difficult to awake today Physical Exam Vital Signs: Vital Signs: Last Vital Signs Temp 97.5 F 02/16/21 07:39 Pulse 76 02/16/21 07:39 Resp 18 02/16/21 07:39 BP 132/68 02/16/21 07:39 Pulse Ox 100 02/16/21 07:39 BMI result Body Mass Index 18.3 Const: Other: Constitutional : Altered, not in distress Neck : Normal inspection, Supple Cardiovascular : RRR, S1 S2, no lower extremity edema Respiratory : Good bilateral air entry, no crackles, wheezes or rhonchi Gastrointestinal: soft, lax, Normal bowel sounds, Non tender Skin : Warm, Dry Neurological : Altered mentation, nonverbal, No focal deficit Objective Data Active Medications Acetaminophen (Acetaminophen 325 Mg Tablet) 650 mg PO Q6H PRN PRN Reason: Pain, Mild (Pain Scale 1-3) Amlodipine Besylate (Amlodipine Besylate 10 Mg Tablet) 10 mg PO DAILY [facility]; Protocol Last Admin: 02/16/21 08:46 Dose: 10 mg Documented by: CARI Aspirin (Aspirin 81 Mg Tab.Chew) 81 mg PO DAILY [facility] Last Admin: 02/16/21 08:46 Dose: 81 mg Documented by: CARI Docusate Sodium (Docusate Sodium 100 Mg Capsule) 100 mg PO DAILY PRN PRN Reason: Constipation Docusate Sodium (Docusate Sodium 100 Mg Capsule) 100 mg PO DAILY [facility] Last Admin: 02/16/21 08:46 Dose: 100 mg Documented by: CARI Donepezil HCl (Donepezil Hcl 10 Mg Tablet) 10 mg PO BEDTIME [facility] Last Admin: 02/15/21 21:18 Dose: 10 mg Documented by: JAN Heparin Sodium (Porcine) (Heparin Sodium,Porcine 5,000 Unit/Ml Vial) 5,000 unit SUBCUT Q12H [facility] Last Admin: 02/16/21 02:14 Dose: 5,000 unit Documented by: KP Ceftriaxone Sodium 1 gm/ (Sodium Chloride) 50 mls @ 100 mls/hr IV Q24H [facility] Last Infusion: 02/15/21 22:36 Dose: 0 mls/hr Documented by: JAN Dextrose (D5w) 1,000 mls @ 125 mls/hr IVCONT .Q8H [facility] Last Admin: 02/16/21 08:45 Dose: 125 mls/hr Documented by: CARI Memantine (Memantine Hcl 10 Mg Tablet) 10 mg PO BID [facility] Last Admin: 02/16/21 08:47 Dose: 10 mg Documented by: CARI Omeprazole (Omeprazole 20 Mg Capsule.Dr) 20 mg PO DAILY [facility] Last Admin: 02/16/21 08:46 Dose: 20 mg Documented by: CARI Ondansetron HCl (Ondansetron Hcl 4 Mg/2 Ml Vial) 4 mg IVPUSH Q8H PRN PRN Reason: Nausea and Vomiting Pharmacy Consult (Consult Rx Perform Med Rec) 1 each MISCELLANE ONCE PRN PRN Reason: Consult order Polyethylene Glycol (Polyethylene Glycol 3350 17 Gm Powd.Pack) 17 gm PO DAILY [facility] Last Admin: 02/16/21 08:47 Dose: 17 gm Documented by: CARI Sertraline HCl (Sertraline Hcl 25 Mg Tablet) 25 mg PO DAILY [facility] Last Admin: 02/16/21 08:46 Dose: 25 mg Documented by: CARI Labs CBC & Chem 7: 02/16/21 05:59 02/16/21 05:59 Labs: Laboratory Results - last 24 hr 02/15/21 02/16/21 02/16/21 15:12 05:59 05:59 MCV 96.4 MCH 29.8 MCHC 30.9 L RDW 12.8 Plt Count 188 MPV 12.2 Absolute Nucleated RBC 0.000 Nucleated RBC % (auto) 0.0 Anion Gap 14 12 Estim Creat Clear Calc 47.0 50.4 Estimated GFR > 60 > 60 Random Glucose 147 H 97 Calcium 8.7 D 9.4 D Microbiology Microbiology Results: Microbiology 02/14/21 Unknown Urine Culture - Preliminary Urine clean catch - Clean Catch Midstream Culture in progress. 02/13/21 23:59 Blood Culture - Preliminary Blood - Venous No growth after 48 hours. 02/13/21 23:58 Blood Culture - Preliminary Blood - Venous No growth after 48 hours. Assessment and Plan (1) Hypernatremia: Status: Acute (2) DOMO (acute kidney injury): Status: Acute (3) Acute UTI: Status: Acute Assessment and Plan: this is a 76-year-old female with past medical history of advanced dementia nonverbal, completely dependent presents to the hospital with near syncope/fall, and altered mentation found to have acute UTI # acute UTI Pending urine culture Continue ceftriaxone IV # DOMO secondary to dehydration Resolved follow BMP # Metabolic encephalopathy 2/2 hypernatremia Should improve with Na level imrpovement recurrent reorientation # Hypernatremia Na increased to 148 after holding fluids overnight secondary to hypovolemic hypernatremia Restart D5 water Nephrology following follow BMP # near syncopal likely vasovagal secondary to dehydration as well as infection no evidence of loss of consciousness DVT prophylaxis: heparin Quality Stroke Does the patient have a stroke diagnosis?: No VTE Prior VTE?: No VTE Risk Level:: Medical - moderate - high VTE Device Contraindication: Treatment Not Indicated VTE Drug Contraindication: N/A - Med Ordered
--- NOTE | 2021-02-16 09:43 | PM.PNNEP ---
Subjective Subjective Date of Service: 02/17/21 Interval history: Events noted no change in mentation Physical Exam Vital Signs: Vital Signs: Last Vital Signs Temp 97.5 F 02/16/21 07:39 Pulse 76 02/16/21 07:39 Resp 18 02/16/21 07:39 BP 132/68 02/16/21 07:39 Pulse Ox 100 02/16/21 07:39 BMI result Body Mass Index 18.3 Const: General: no acute distress Eyes: General: appearance normal, both eyes and all related structures Pupils: Equal, round and reactive pupils present Resp: Effort & Inspection: normal respiratory effort, able to speak in complete sentences and abnormal respiratory pattern Auscultation: clear to auscultation bilaterally Cardio: Rate: regular rate Rhythm: regular rhythm GI: Other: grimaces when I press on the abdomen , no rebound or guarding Palpation (GI): Soft to palpation Auscultation: normal bowel sounds Skin: General skin exam: no rashes or lesions noted Neuro: Cranial nerves: Yes Equal, round and reactive pupils present Extrem: General: Yes normal to inspection and Yes no pedal edema Objective Data Labs CBC & Chem 7: 02/16/21 05:59 02/17/21 06:03 Labs: Laboratory Results - last 24 hr 02/15/21 02/16/21 02/16/21 15:12 05:59 05:59 WBC 9.5 RBC 4.47 Hgb 13.3 Hct 43.1 MCV 96.4 MCH 29.8 MCHC 30.9 L RDW 12.8 Plt Count 188 MPV 12.2 Absolute Nucleated RBC 0.000 Nucleated RBC % (auto) 0.0 Sodium 145 148 H Potassium 3.5 3.9 Chloride 111 H 113 H Carbon Dioxide 24 27 Anion Gap 14 12 BUN 18 H 12 Creatinine 0.74 0.69 Estim Creat Clear Calc 47.0 50.4 Estimated GFR > 60 > 60 Random Glucose 147 H 97 Calcium 8.7 D 9.4 D Microbiology Microbiology Results: Microbiology 02/14/21 Unknown Urine clean catch - Clean Catch Midstream Urine Culture - Preliminary Culture in progress. 02/13/21 23:59 Blood - Venous Blood Culture - Preliminary No growth after 48 hours. 02/13/21 23:58 Blood - Venous Blood Culture - Preliminary No growth after 48 hours. Procedures Date of Service Date of Service: 02/16/21 Assessment & Plan Assessment and plan (1) Hypernatremia: Status: Acute (2) DOMO (acute kidney injury): Status: Acute (3) Acute UTI: Status: Acute Assessment and Plan: # acute UTI Pending urine culture Continue ceftriaxone IV # DOMO secondary to dehydration Resolved # Hypernatremia Na at 148 secondary to hypovolemic hypernatremia D5 water # near syncopal likely vasovagal secondary to dehydration as well as infection no evidence of loss of consciousness Time Spent With Patient Time: Total time spent is greater than 50% in coordination of care (as documented) at patient's floor/unit and/or counseling patient: Time with patient: 15 - 24 minutes Progress Note: Quality Stroke Does the patient have a stroke diagnosis?: No
--- NOTE | 2021-02-16 14:53 | MHC.SL.SWA ---
Speech Pathologist Impression: Risk of Aspiration Oralpharyngeal Dysphagia Risk of Aspiration Due to: Reduced Cognition Dysphasia Diet Status: Liquid Consistency and Strategies for Safe Swallow: Liquid Intake Recommendation: Honey Thick Liquid Intake Strategies: Liquids by Teaspoon Only Solid Food Consistency: Dietary Recommendations: Pureed (NDD1) Additional Modifications to Solid Foods: Recommend PUREED (NDD1) solids and HONEY THICK liquids by teaspoon or controlled cup sip with pills CRUSHED in PUREE. Patient requires 1:1 assistance feeding. Continue strict aspiration precautions. KNITTING DEMONSTRATOR will continue to follow this patient to monitor tolerance, re-assess potential for upgrade as appropriate and provide support for family. Oral Medication Intake: Crushed with Puree Compensatory Strategies and Precautions to be Taken for Safe Swallow: Sitting Upright (90 deg) No Straw Liquids from Spoon Alternate Liquids/Solids Supervision While Eating and Drinking for Safe Swallow: Total Supervision (1:1) Foods to Avoid: Swallowing Recommended Treatments: Compens. Strategy Educat. Recommendation for Speech: Inpatient Speech Therapy Comment: Pt seen this morning for tolerance of current diet recommendations and swallowing trials. Pt was asleep but easily roused, but remained lethargic throughout session. Pt ate very little of her breakfast, with much of her breakfast still present at bedside. Pt responded to her name, but was non verbal/did not respond to communication offered in Lithuanian. Pt took small amount of Honey thick liquid by spoon, had delay of oral phase and mild delay of swallow, no s/s aspiration. Pt took spoonful of apple sauce, with delay of oral phase and mild delay of swallow, no s/s aspiration. Recommend continue on current diet consistencies (Honey thick liquid, Puree solids (NDD1). Pt will continue to need full assist, monitor for signs of aspiration during meals. Frequency/Duration: Date Range for Service Req: Timeline to reassess: Manufacturing Assembler Clinican/Clinical Fellow: No Supervisory Statement: I have reviewed and agree with the student/clinical fellow's documentation: N/A Speech Language Pathologist: Dayana Gonzalez M.A., [facility]-KNITTING DEMONSTRATOR
[2021-02-16] MEDS: cefTRIAXone sodium 1 GM in 0.9 % Sodium Chloride 50 ML IV (22:19)
[2021-02-16] MEDS: Donepezil HCl 10 MG TABLET PO (22:19)
[2021-02-17] MEDS: Heparin Sodium,Porcine 5,000 UNIT/ML VIAL 5000 UNIT SUBCUT ×2 (01:19→14:14)
[2021-02-17] MEDS: Dextrose 5 % 1,000 ML 125 ML IVCONT ×4 (01:19→20:35)
[2021-02-17 03:27] VITALS: BP 116/70; PULSE 66; RESP 18; TEMP 36.3; O2SAT 94
[2021-02-17 06:47] LABS: Anion Gap 13 (12-20); Blood Urea Nitrogen 5 mg/dL (9-16); Calcium 9.5 mg/dL (8.4-10.2); Carbon Dioxide 27 mmol/L (22-29); Chloride 109 mmol/L (96-108); Creatinine Clr Calc Pharmacy 50.4; Estimated Glomerular Filt Rate > 60; Glucose Random 163 mg/dL (60-115); Potassium 3.8 mmol/L (3.3-5.1); Sodium 145 mmol/L (135-145)
[2021-02-17 07:46] VITALS: BP 115/89; PULSE 79; RESP 18; TEMP 36.7; O2SAT 95
[2021-02-17] MEDS: Aspirin 81 MG TAB.CHEW PO (08:14)
[2021-02-17] MEDS: Omeprazole 20 MG CAPSULE.DR PO (08:14)
[2021-02-17] MEDS: Memantine HCl 10 MG TABLET PO ×2 (08:14→20:34)
[2021-02-17] MEDS: polyethylene glycoL 3350 17 GM POWD.PACK PO (08:14)
[2021-02-17] MEDS: Sertraline HCL 25 MG TABLET PO (08:14)
[2021-02-17] MEDS: amLODIPine Besylate 10 MG TABLET PO (08:14)
--- NOTE | 2021-02-17 11:03 | MHC.SL.SWA ---
Speech Pathologist Impression: Risk of Aspiration Oralpharyngeal Dysphagia Risk of Aspiration Due to: Reduced Cognition Dysphasia Diet Status: No change Liquid Consistency and Strategies for Safe Swallow: Liquid Intake Recommendation: Honey Thick Liquid Intake Strategies: Liquids by Teaspoon Only Solid Food Consistency: Dietary Recommendations: Pureed (NDD1) Additional Modifications to Solid Foods: Recommend PUREED (NDD1) solids and HONEY THICK liquids by teaspoon or controlled cup sip with pills CRUSHED in PUREE. Patient requires 1:1 assistance feeding. Continue strict aspiration precautions. FURNACE HELPER will continue to follow this patient to monitor tolerance, re-assess potential for upgrade as appropriate and provide support for family. Oral Medication Intake: Crushed with Puree Compensatory Strategies and Precautions to be Taken for Safe Swallow: Sitting Upright (90 deg) No Straw Liquids from Spoon Alternate Liquids/Solids Supervision While Eating and Drinking for Safe Swallow: Total Supervision (1:1) Swallowing Recommended Treatments: Compens. Strategy Educat. Recommendation for Speech: Inpatient Speech Therapy French Folding Machine Operator Clinican/Clinical Fellow: Yes: Kathrine Paz Supervisory Statement: I have reviewed and agree with the student/clinical fellow's documentation: Yes Speech Language Pathologist: Trisha Dubois M.A., CCC-FURNACE HELPER
--- NOTE | 2021-02-17 11:06 | PM.PNNEP ---
Subjective Subjective Date of Service: 02/17/21 Interval history: Events noted no change in mentation Physical Exam Vital Signs: Vital Signs: Last Vital Signs Temp 98.1 F 02/17/21 07:46 Pulse 79 02/17/21 07:46 Resp 18 02/17/21 07:46 BP 115/89 02/17/21 07:46 Pulse Ox 95 02/17/21 07:46 BMI result Body Mass Index 18.3 Const: Other: patient is awake, nonverbal, does not answer questions or follows any commands General: no acute distress Eyes: General: appearance normal, both eyes and all related structures Pupils: Equal, round and reactive pupils present Resp: Effort & Inspection: normal respiratory effort, able to speak in complete sentences and abnormal respiratory pattern Auscultation: clear to auscultation bilaterally Cardio: Rate: regular rate Rhythm: regular rhythm GI: Other: grimaces when I press on the abdomen , no rebound or guarding Palpation (GI): Soft to palpation Auscultation: normal bowel sounds Skin: General skin exam: no rashes or lesions noted Neuro: Cranial nerves: Yes Equal, round and reactive pupils present Extrem: General: Yes normal to inspection and Yes no pedal edema Objective Data Labs CBC & Chem 7: 02/16/21 05:59 02/17/21 06:03 Labs: Laboratory Results - last 24 hr 02/17/21 06:03 Sodium 145 Potassium 3.8 Chloride 109 H Carbon Dioxide 27 Anion Gap 13 BUN 5 L D Creatinine 0.69 Estim Creat Clear Calc 50.4 Estimated GFR > 60 Random Glucose 163 H Calcium 9.5 Microbiology Microbiology Results: Microbiology 02/14/21 Unknown Urine clean catch - Clean Catch Midstream Urine Culture - Preliminary Culture in progress. 02/13/21 23:59 Blood - Venous Blood Culture - Preliminary No growth after 48 hours. 02/13/21 23:58 Blood - Venous Blood Culture - Preliminary No growth after 48 hours. Procedures Date of Service Date of Service: 02/17/21 Assessment & Plan Assessment and plan (1) Hypernatremia: Status: Acute (2) DOMO (acute kidney injury): Status: Acute (3) Acute UTI: Status: Acute Assessment and Plan: # acute UTI Pending urine culture Continue ceftriaxone IV # DOMO secondary to dehydration Resolved # Hypernatremia Na improved secondary to hypovolemic hypernatremia Keep I > O with hypotonic fluids Time Spent With Patient Time with patient: 15 - 24 minutes Progress Note: Quality Stroke Does the patient have a stroke diagnosis?: No
[2021-02-17 11:32] VITALS: PULSE 79; RESP 18; TEMP 36.4
[2021-02-17 11:35] VITALS: BP 107/65; PULSE 89; RESP 18; TEMP 36.4; O2SAT 93
--- NOTE | 2021-02-17 12:27 | HO.PM.IMPN ---
Subjective Subjective Date of Service: 02/17/21 Interval History: cc: ams interval history: still not at baseline Review of Systems Review of Systems: Yes Unobtainable due to mental condition Physical Exam Vital Signs: Vital Signs: Last Vital Signs Temp 97.5 F 02/17/21 11:35 Pulse 89 02/17/21 11:35 Resp 18 02/17/21 11:35 BP 107/65 02/17/21 11:35 Pulse Ox 93 02/17/21 11:35 BMI result Body Mass Index 18.3 Const Other:?Constitutional :? Altered, not in distress Neck : Normal inspection, Supple Cardiovascular : RRR, S1 S2, no lower extremity edema Respiratory : Good bilateral air entry,? no crackles, wheezes or rhonchi Gastrointestinal:? soft, lax, Normal bowel sounds, Non tender Skin : Warm, Dry Neurological :? Altered mentation, nonverbal, No focal deficit Objective Data Active Medications Acetaminophen (Acetaminophen 325 Mg Tablet) 650 mg PO Q6H PRN PRN Reason: Pain, Mild (Pain Scale 1-3) Amlodipine Besylate (Amlodipine Besylate 10 Mg Tablet) 10 mg PO DAILY [facility]; Protocol Last Admin: 02/17/21 08:14 Dose: 10 mg Documented by: EUGENIA Aspirin (Aspirin 81 Mg Tab.Chew) 81 mg PO DAILY [facility] Last Admin: 02/17/21 08:14 Dose: 81 mg Documented by: EUGENIA Docusate Sodium (Docusate Sodium 100 Mg Capsule) 100 mg PO DAILY PRN PRN Reason: Constipation Docusate Sodium (Docusate Sodium 100 Mg Capsule) 100 mg PO DAILY [facility] Last Admin: 02/17/21 08:21 Dose: Not Given Documented by: EUGENIA Non-Admin Reason: unable to swallow Donepezil HCl (Donepezil Hcl 10 Mg Tablet) 10 mg PO BEDTIME [facility] Last Admin: 02/16/21 22:19 Dose: 10 mg Documented by: PAUL Heparin Sodium (Porcine) (Heparin Sodium,Porcine 5,000 Unit/Ml Vial) 5,000 unit SUBCUT Q12H [facility] Last Admin: 02/17/21 01:19 Dose: 5,000 unit Documented by: PAUL Ceftriaxone Sodium 1 gm/ (Sodium Chloride) 50 mls @ 100 mls/hr IV Q24H [facility] Last Infusion: 02/16/21 23:09 Dose: 0 mls/hr Documented by: PAUL Dextrose (D5w) 1,000 mls @ 125 mls/hr IVCONT .Q8H [facility] Last Admin: 02/17/21 08:20 Dose: 125 mls/hr Documented by: EUGENIA Memantine (Memantine Hcl 10 Mg Tablet) 10 mg PO BID [facility] Last Admin: 02/17/21 08:14 Dose: 10 mg Documented by: EUGENIA Omeprazole (Omeprazole 20 Mg Capsule.Dr) 20 mg PO DAILY [facility] Last Admin: 02/17/21 08:14 Dose: 20 mg Documented by: EUGENIA Ondansetron HCl (Ondansetron Hcl 4 Mg/2 Ml Vial) 4 mg IVPUSH Q8H PRN PRN Reason: Nausea and Vomiting Pharmacy Consult (Consult Rx Perform Med Rec) 1 each MISCELLANE ONCE PRN PRN Reason: Consult order Polyethylene Glycol (Polyethylene Glycol 3350 17 Gm Powd.Pack) 17 gm PO DAILY [facility] Last Admin: 02/17/21 08:14 Dose: 17 gm Documented by: EUGENIA Sertraline HCl (Sertraline Hcl 25 Mg Tablet) 25 mg PO DAILY [facility] Last Admin: 02/17/21 08:14 Dose: 25 mg Documented by: EUGENIA Labs CBC & Chem 7: 02/16/21 05:59 02/17/21 06:03 Labs: Laboratory Results - last 24 hr 02/17/21 06:03 Anion Gap 13 Estim Creat Clear Calc 50.4 Estimated GFR > 60 Random Glucose 163 H Calcium 9.5 Microbiology Microbiology Results: Microbiology 02/14/21 Unknown Urine Culture - Preliminary Urine clean catch - Clean Catch Midstream Culture in progress. Assessment and Plan (1) Hypernatremia: Status: Acute (2) DOMO (acute kidney injury): Status: Acute (3) Acute UTI: Status: Acute Assessment and Plan: this is a 76-year-old female with past medical history of advanced dementia nonverbal, completely dependent presents to the hospital with near syncope/fall, and altered mentation found to have acute UTI acute UTI Pending urine culture Continue ceftriaxone IV DOMO secondary to dehydration Resolved follow BMP Metabolic encephalopathy 2/2 hypernatremia and uti recurrent reorientation monitor Hypernatremia now 145 secondary to hypovolemic hypernatremia D5 water Nephrology following follow BMP near syncopal likely vasovagal secondary to dehydration as well as infection no evidence of loss of consciousness DVT prophylaxis: heparin Quality Stroke Does the patient have a stroke diagnosis?: No VTE Prior VTE?: No VTE Risk Level:: Medical - moderate - high VTE Device Contraindication: Treatment Not Indicated VTE Drug Contraindication: N/A - Med Ordered
[2021-02-17 15:21] VITALS: BP 110/65; PULSE 93; RESP 18; TEMP 37.1; O2SAT 97
[2021-02-17 20:00] VITALS: BP 103/66; PULSE 100; RESP 16; TEMP 36.7; O2SAT 92
[2021-02-17] MEDS: cefTRIAXone sodium 1 GM in 0.9 % Sodium Chloride 50 ML IV (20:34)
[2021-02-17] MEDS: Donepezil HCl 10 MG TABLET PO (20:34)
[2021-02-18] VITALS (7 sets, daily range): BP systolic 100–138; BP diastolic 55–94; PULSE 85–107; RESP 17–21; TEMP 36–37; O2SAT 91–100
[2021-02-18] MEDS: Heparin Sodium,Porcine 5,000 UNIT/ML VIAL 5000 UNIT SUBCUT ×2 (00:35→14:26)
[2021-02-18] MEDS: Dextrose 5 % 1,000 ML 125 ML IVCONT (05:15)
[2021-02-18 06:23] LABS: Hematocrit 44.2 % (37.0-47.0); Hemoglobin 13.9 g/dl (12.0-16.0); Mean Corpuscular HGB Conc 31.4 g/dl (31.0-35.0); Mean Corpuscular Hemoglobin 29.9 pg (27.0-33.0); Mean Corpuscular Volume 95.1 fL (80.0-98.0); Mean Platelet Volume 12.2 fL (9.4-12.3); Platelet Count 191 X10*3/uL (160-400); Red Blood Count 4.65 X10*6/uL (4.20-5.50); Red Cell Distribution Width 12.9 % (11.0-16.0); White Blood Count 9.6 X10*3/uL (4.8-10.8)
[2021-02-18 07:03] LABS: Anion Gap 12 (12-20); Blood Urea Nitrogen 4 mg/dL (9-16); Calcium 9.2 mg/dL (8.4-10.2); Carbon Dioxide 27 mmol/L (22-29); Chloride 107 mmol/L (96-108); Creatinine Clr Calc Pharmacy 52.7; Estimated Glomerular Filt Rate > 60; Glucose Fasting 164 mg/dL (60-99); Potassium 3.5 mmol/L (3.3-5.1); Sodium 142 mmol/L (135-145)
[2021-02-18] MEDS: Sertraline HCL 25 MG TABLET PO (09:47)
[2021-02-18] MEDS: Memantine HCl 10 MG TABLET PO (09:47)
[2021-02-18] MEDS: Omeprazole 20 MG CAPSULE.DR PO (09:47)
[2021-02-18] MEDS: polyethylene glycoL 3350 17 GM POWD.PACK PO (09:47)
[2021-02-18] MEDS: Aspirin 81 MG TAB.CHEW PO (09:47)
[2021-02-18] MEDS: amLODIPine Besylate 10 MG TABLET PO (09:47)
--- NOTE | 2021-02-18 10:58 | MHC.SL.SWA ---
Speech Pathologist Impression: Risk of Aspiration Oralpharyngeal Dysphagia Risk of Aspiration Due to: Reduced Cognition Dysphasia Diet Status: Liquid Consistency and Strategies for Safe Swallow: Liquid Intake Recommendation: Honey Thick Liquid Intake Strategies: Liquids by Teaspoon Only Solid Food Consistency: Dietary Recommendations: Pureed (NDD1) Additional Modifications to Solid Foods: Recommend PUREED (NDD1) solids and HONEY THICK liquids by teaspoon or controlled cup sip with pills CRUSHED in PUREE. Patient requires 1:1 assistance feeding. Continue strict aspiration precautions. ROLLOUT MANAGER will continue to follow this patient to monitor tolerance, re-assess potential for upgrade as appropriate and provide support for family. Oral Medication Intake: Crushed with Puree Compensatory Strategies and Precautions to be Taken for Safe Swallow: Sitting Upright (90 deg) No Straw Liquids from Spoon Alternate Liquids/Solids Supervision While Eating and Drinking for Safe Swallow: Total Supervision (1:1) Foods to Avoid: Swallowing Recommended Treatments: Compens. Strategy Educat. Recommendation for Speech: Inpatient Speech Therapy Comment: 02/18/21 Pt tolerating current diet well. Discussed diet needs, liquid consistency with Pt's . Recommend contine on diet of PUREED (NDD1) solids and HONEY THICK liquids by teaspoon or controlled cup sip with pills CRUSHED in PUREE. Patient requires 1:1 assistance feeding. Continue strict aspiration precautions. ROLLOUT MANAGER will continue to follow this patient to monitor tolerance, re-assess potential for upgrade as appropriate and provide support for family. Frequency/Duration: Date Range for Service Req: Timeline to reassess: Health Evaluator Clinican/Clinical Fellow: No Supervisory Statement: I have reviewed and agree with the student/clinical fellow's documentation: n/a Speech Language Pathologist: Dayana Gonzalez M.A., CCC-ROLLOUT MANAGER
--- NOTE | 2021-02-18 11:10 | P.PNIM_ITS ---
Subjective Subjective Date of Service: 02/18/21 Interval History: cc: ams interval history: now at baseline Cardiovascular Cardiovascular: Reports no additional cardiovascular complaints Respiratory Respiratory: Reports no additional respiratory complaints Physical Exam Vital Signs: Vital Signs: Last Vital Signs Temp 97.9 F 02/18/21 07:52 Pulse 85 02/18/21 07:52 Resp 18 02/18/21 07:52 BP 138/94 H 02/18/21 07:52 Pulse Ox 100 02/18/21 07:52 BMI result Body Mass Index 18.3 Const Other:?Constitutional :? Altered, not in distress Neck : Normal inspection, Supple Cardiovascular : RRR, S1 S2, no lower extremity edema Respiratory : Good bilateral air entry,? no crackles, wheezes or rhonchi Gastrointestinal:? soft, lax, Normal bowel sounds, Non tender Skin : Warm, Dry Neurological :? Altered mentation, nonverbal, No focal deficit Objective Data Active Medications Acetaminophen (Acetaminophen 325 Mg Tablet) 650 mg PO Q6H PRN PRN Reason: Pain, Mild (Pain Scale 1-3) Amlodipine Besylate (Amlodipine Besylate 10 Mg Tablet) 10 mg PO DAILY [facility]; Protocol Last Admin: 02/18/21 09:47 Dose: 10 mg Documented by: ALBINO Aspirin (Aspirin 81 Mg Tab.Chew) 81 mg PO DAILY [facility] Last Admin: 02/18/21 09:47 Dose: 81 mg Documented by: ALBINO Docusate Sodium (Docusate Sodium 100 Mg Capsule) 100 mg PO DAILY PRN PRN Reason: Constipation Docusate Sodium (Docusate Sodium 100 Mg Capsule) 100 mg PO DAILY [facility] Last Admin: 02/18/21 09:47 Dose: Not Given Documented by: ALBINO Non-Admin Reason: cant swallow Donepezil HCl (Donepezil Hcl 10 Mg Tablet) 10 mg PO BEDTIME [facility] Last Admin: 02/17/21 20:34 Dose: 10 mg Documented by: JAN Comments: barcode cut off unable to scan Heparin Sodium (Porcine) (Heparin Sodium,Porcine 5,000 Unit/Ml Vial) 5,000 unit SUBCUT Q12H [facility] Last Admin: 02/18/21 00:35 Dose: 5,000 unit Documented by: NANNETTE Ceftriaxone Sodium 1 gm/ (Sodium Chloride) 50 mls @ 100 mls/hr IV Q24H [facility] Last Infusion: 02/17/21 21:29 Dose: 0 mls/hr Documented by: JAN Memantine (Memantine Hcl 10 Mg Tablet) 10 mg PO BID [facility] Last Admin: 02/18/21 09:47 Dose: 10 mg Documented by: ALBINO Omeprazole (Omeprazole 20 Mg Capsule.) 20 mg PO DAILY [facility] Last Admin: 02/18/21 09:47 Dose: 20 mg Documented by: ALBINO Ondansetron HCl (Ondansetron Hcl 4 Mg/2 Ml Vial) 4 mg IVPUSH Q8H PRN PRN Reason: Nausea and Vomiting Pharmacy Consult (Consult Rx Perform Med Rec) 1 each MISCELLANE ONCE PRN PRN Reason: Consult order Polyethylene Glycol (Polyethylene Glycol 3350 17 Gm Powd.Pack) 17 gm PO DAILY [facility] Last Admin: 02/18/21 09:47 Dose: 17 gm Documented by: ALBINO Sertraline HCl (Sertraline Hcl 25 Mg Tablet) 25 mg PO DAILY [facility] Last Admin: 02/18/21 09:47 Dose: 25 mg Documented by: ALBINO Labs CBC & Chem 7: 02/18/21 05:47 02/18/21 05:47 Labs: Laboratory Results - last 24 hr 02/18/21 02/18/21 05:47 05:47 MCV 95.1 MCH 29.9 MCHC 31.4 RDW 12.9 Plt Count 191 MPV 12.2 Absolute Nucleated RBC 0.000 Nucleated RBC % (auto) 0.0 Anion Gap 12 Estim Creat Clear Calc 52.7 Estimated GFR > 60 Fasting Glucose 164 H Calcium 9.2 Microbiology Microbiology Results: Microbiology 02/14/21 Unknown Urine Culture - Final Urine clean catch - Clean Catch Midstream Escherichia coli Klebsiella pneumoniae Assessment and Plan (1) Hypernatremia: Status: Acute (2) DOMO (acute kidney injury): Status: Acute (3) Acute UTI: Status: Acute Assessment and Plan: 76-year-old female with past medical history of advanced dementia nonverbal, completely dependent presented to the hospital with near syncope/fall, and altered mentation found to have acute UTI acute UTI urine growing klebsiella and ecoli Continue ceftriaxone IV day 5 DOMO secondary to dehydration Resolved Metabolic encephalopathy 2/2 hypernatremia and uti recurrent reorientation now back to baseline Hypernatremia now 142 secondary to hypovolemic hypernatremia will dc d5w and monitor near syncopal episode likely vasovagal secondary to dehydration as well as infection no evidence of loss of consciousness DVT prophylaxis: heparin Quality Stroke Does the patient have a stroke diagnosis?: No VTE Prior VTE?: No VTE Risk Level:: Medical - moderate - high VTE Device Contraindication: Treatment Not Indicated VTE Drug Contraindication: N/A - Med Ordered
[2021-02-18] MEDS: cefTRIAXone sodium 1 GM in 0.9 % Sodium Chloride 50 ML IV (22:18)
[2021-02-19] VITALS (7 sets, daily range): BP systolic 101–157; BP diastolic 57–76; PULSE 73–100; RESP 16–21; TEMP 35.9–36.9; O2SAT 92–100
[2021-02-19] MEDS: Heparin Sodium,Porcine 5,000 UNIT/ML VIAL 5000 UNIT SUBCUT ×2 (01:26→13:07)
[2021-02-19 04:45] LABS: Glucose, Whole Blood 90 mg/dL (60-115)
[2021-02-19 06:32] LABS: Hematocrit 44.2 % (37.0-47.0); Hemoglobin 13.7 g/dl (12.0-16.0); Mean Corpuscular Hemoglobin 29.8 pg (27.0-33.0); Mean Corpuscular Volume 96.3 fL (80.0-98.0); Mean Platelet Volume 12.6 fL (9.4-12.3); Platelet Count 201 X10*3/uL (160-400); Red Blood Count 4.59 X10*6/uL (4.20-5.50); Red Cell Distribution Width 13.2 % (11.0-16.0); White Blood Count 9.7 X10*3/uL (4.8-10.8)
[2021-02-19 07:08] LABS: Anion Gap 11 (12-20); Blood Urea Nitrogen 7 mg/dL (9-16); Calcium 9.6 mg/dL (8.4-10.2); Carbon Dioxide 30 mmol/L (22-29); Chloride 109 mmol/L (96-108); Creatinine Clr Calc Pharmacy 50.4; Estimated Glomerular Filt Rate > 60; Glucose Fasting 108 mg/dL (60-99); Potassium 3.9 mmol/L (3.3-5.1); Sodium 146 mmol/L (135-145)
[2021-02-19] MEDS: Dextrose 5 % 1,000 ML 100 ML IVCONT ×2 (08:59→18:25)
[2021-02-19] MEDS: Sertraline HCL 25 MG TABLET PO (08:59)
[2021-02-19] MEDS: Aspirin 81 MG TAB.CHEW PO (08:59)
[2021-02-19] MEDS: polyethylene glycoL 3350 17 GM POWD.PACK PO (09:00)
[2021-02-19] MEDS: Memantine HCl 10 MG TABLET PO ×2 (09:00→20:26)
[2021-02-19] MEDS: amLODIPine Besylate 10 MG TABLET PO (09:00)
[2021-02-19] MEDS: Omeprazole 20 MG CAPSULE.DR PO (09:00)
--- NOTE | 2021-02-19 11:11 | P.PNNP_ITS ---
Subjective Subjective Date of Service: 02/20/21 Interval history: cc: ams interval history: now at baseline Physical Exam Vital Signs: Vital Signs: Last Vital Signs Temp 97.5 F 02/19/21 07:18 Pulse 73 02/19/21 09:00 Resp 18 02/19/21 07:18 BP 157/76 H 02/19/21 09:00 Pulse Ox 100 02/19/21 07:18 BMI result Body Mass Index 18.3 Const: Other: patient is awake, nonverbal, does not answer questions or follows any commands General: no acute distress Eyes: General: appearance normal, both eyes and all related structures Pupils: Equal, round and reactive pupils present Resp: Effort & Inspection: normal respiratory effort, able to speak in complete sentences and abnormal respiratory pattern Auscultation: clear to auscultation bilaterally Cardio: Rate: regular rate Rhythm: regular rhythm GI: Other: grimaces when I press on the abdomen , no rebound or guarding Palpation (GI): Soft to palpation Auscultation: normal bowel sounds Skin: General skin exam: no rashes or lesions noted Neuro: Cranial nerves: Yes Equal, round and reactive pupils present Extrem: General: Yes normal to inspection and Yes no pedal edema Objective Data Labs CBC & Chem 7: 02/20/21 06:01 02/20/21 06:01 Labs: Laboratory Results - last 24 hr 02/19/21 02/19/21 02/19/21 04:41 05:56 05:56 WBC 9.7 RBC 4.59 Hgb 13.7 Hct 44.2 MCV 96.3 MCH 29.8 MCHC 31.0 RDW 13.2 Plt Count 201 MPV 12.6 H Absolute Nucleated RBC 0.000 Nucleated RBC % (auto) 0.0 Sodium 146 H Potassium 3.9 Chloride 109 H Carbon Dioxide 30 H Anion Gap 11 L BUN 7 L D Creatinine 0.69 Estim Creat Clear Calc 50.4 Estimated GFR > 60 POC Glucose 90 Fasting Glucose 108 H Calcium 9.6 Microbiology Microbiology Results: Microbiology 02/13/21 23:58 Blood - Venous Blood Culture - Final No growth after 5 days. 02/13/21 23:59 Blood - Venous Blood Culture - Final No growth after 5 days. 02/14/21 Unknown Urine clean catch - Clean Catch Midstream Urine Culture - Final Escherichia coli Klebsiella pneumoniae Procedures Date of Service Date of Service: 02/19/21 Assessment & Plan Assessment and plan (1) Hypernatremia: Status: Acute (2) DOMO (acute kidney injury): Status: Acute (3) Acute UTI: Status: Acute Assessment and Plan: # acute UTI Pending urine culture Continue ceftriaxone IV # DOMO secondary to dehydration Resolved # Hypernatremia Na improved secondary to hypovolemic hypernatremia Keep I > O with hypotonic fluids Time Spent With Patient Time: Total time spent is greater than 50% in coordination of care (as docume nted) at patient's floor/unit and/or counseling patient: Time with patient: 15 - 24 minutes Progress Note: Quality Stroke Does the patient have a stroke diagnosis?: No
--- NOTE | 2021-02-19 11:20 | P.PNIM_ITS ---
Subjective Subjective Date of Service: 02/19/21 Interval History: cc: ams interval history: now at baseline Cardiovascular Cardiovascular: Reports no additional cardiovascular complaints Respiratory Respiratory: Reports no additional respiratory complaints Physical Exam Vital Signs: Vital Signs: Last Vital Signs Temp 97.5 F 02/19/21 07:18 Pulse 73 02/19/21 09:00 Resp 18 02/19/21 07:18 BP 157/76 H 02/19/21 09:00 Pulse Ox 100 02/19/21 07:18 BMI result Body Mass Index 18.3 Const Other:?Constitutional :? Altered, not in distress Neck : Normal inspection, Supple Cardiovascular : RRR, S1 S2, no lower extremity edema Respiratory : Good bilateral air entry,? no crackles, wheezes or rhonchi Gastrointestinal:? soft, lax, Normal bowel sounds, Non tender Skin : Warm, Dry Neurological :? , nonverbal, No focal defici Objective Data Active Medications Acetaminophen (Acetaminophen 325 Mg Tablet) 650 mg PO Q6H PRN PRN Reason: Pain, Mild (Pain Scale 1-3) Amlodipine Besylate (Amlodipine Besylate 10 Mg Tablet) 10 mg PO DAILY [facility]; Protocol Last Admin: 02/19/21 09:00 Dose: 10 mg Documented by: DENIA Aspirin (Aspirin 81 Mg Tab.Chew) 81 mg PO DAILY [facility] Last Admin: 02/19/21 08:59 Dose: 81 mg Documented by: DENIA Docusate Sodium (Docusate Sodium 100 Mg Capsule) 100 mg PO DAILY PRN PRN Reason: Constipation Docusate Sodium (Docusate Sodium 100 Mg Capsule) 100 mg PO DAILY [facility] Last Admin: 02/19/21 08:58 Dose: Not Given Documented by: DENIA Non-Admin Reason: unable to swallow Donepezil HCl (Donepezil Hcl 10 Mg Tablet) 10 mg PO BEDTIME [facility] Last Admin: 02/18/21 22:24 Dose: Not Given Documented by: PAUL Non-Admin Reason: pt too drowsy Heparin Sodium (Porcine) (Heparin Sodium,Porcine 5,000 Unit/Ml Vial) 5,000 unit SUBCUT Q12H [facility] Last Admin: 02/19/21 01:26 Dose: 5,000 unit Documented by: TUMASY Ceftriaxone Sodium 1 gm/ (Sodium Chloride) 50 mls @ 100 mls/hr IV Q24H [facility] Last Infusion: 02/18/21 22:54 Dose: 0 mls/hr Documented by: PAUL Dextrose (D5w) 1,000 mls @ 100 mls/hr IVCONT .Q10H [facility] Last Admin: 02/19/21 08:59 Dose: 100 mls/hr Documented by: DENIA Memantine (Memantine Hcl 10 Mg Tablet) 10 mg PO BID [facility] Last Admin: 02/19/21 09:00 Dose: 10 mg Documented by: DENIA Omeprazole (Omeprazole 20 Mg Capsule.Dr) 20 mg PO DAILY [facility] Last Admin: 02/19/21 09:00 Dose: 20 mg Documented by: DENIA Ondansetron HCl (Ondansetron Hcl 4 Mg/2 Ml Vial) 4 mg IVPUSH Q8H PRN PRN Reason: Nausea and Vomiting Pharmacy Consult (Consult Rx Perform Med Rec) 1 each MISCELLANE ONCE PRN PRN Reason: Consult order Polyethylene Glycol (Polyethylene Glycol 3350 17 Gm Powd.Pack) 17 gm PO DAILY [facility] Last Admin: 02/19/21 09:00 Dose: 17 gm Documented by: DENIA Sertraline HCl (Sertraline Hcl 25 Mg Tablet) 25 mg PO DAILY [facility] Last Admin: 02/19/21 08:59 Dose: 25 mg Documented by: DENIA Labs CBC & Chem 7: 02/19/21 05:56 02/19/21 05:56 Labs: Laboratory Results - last 24 hr 02/19/21 02/19/21 02/19/21 04:41 05:56 05:56 MCV 96.3 MCH 29.8 MCHC 31.0 RDW 13.2 Plt Count 201 MPV 12.6 H Absolute Nucleated RBC 0.000 Nucleated RBC % (auto) 0.0 Anion Gap 11 L Estim Creat Clear Calc 50.4 Estimated GFR > 60 POC Glucose 90 Fasting Glucose 108 H Calcium 9.6 Microbiology Microbiology Results: Microbiology 02/13/21 23:58 Blood Culture - Final Blood - Venous No growth after 5 days. 02/13/21 23:59 Blood Culture - Final Blood - Venous No growth after 5 days. 02/14/21 Unknown Urine Culture - Final Urine clean catch - Clean Catch Midstream Escherichia coli Klebsiella pneumoniae Assessment and Plan (1) Hypernatremia: Status: Acute (2) DOMO (acute kidney injury): Status: Acute (3) Acute UTI: Status: Acute Assessment and Plan: 76-year-old female with past medical history of advanced dementia nonverbal, completely dependent presented to the hospital with near syncope/fall, and altered mentation found to have acute UTI acute UTI urine growing klebsiella and ecoli Continue ceftriaxone IV day 6 DOMO secondary to dehydration Resolved Metabolic encephalopathy 2/2 hypernatremia and uti recurrent reorientation now back to baseline Hypernatremia now back up to 146 after stopping d5w secondary to hypovolemic hypernatremia will restart d5w today, once corrected will stop again, patient does seem to be able to drink enough to maintain, just needs to be encouraged near syncopal episode likely vasovagal secondary to dehydration as well as infection no evidence of loss of consciousness DVT prophylaxis: heparin Quality Stroke Does the patient have a stroke diagnosis?: No VTE Prior VTE?: No VTE Risk Level:: Medical - moderate - high VTE Device Contraindication: Treatment Not Indicated VTE Drug Contraindication: N/A - Med Ordered
--- NOTE | 2021-02-19 11:20 | MHC.SL.SWA ---
Speech Pathologist Impression: Risk of Aspiration Oralpharyngeal Dysphagia Risk of Aspiration Due to: Reduced Cognition Dysphasia Diet Status: UPGRADE Liquid Consistency and Strategies for Safe Swallow: Liquid Intake Recommendation: [place] Thick Liquid Intake Strategies: Small Sips No Straws Liquids by Teaspoon Only Solid Food Consistency: Dietary Recommendations: Grnd/Mech Altered (NDD2) Additional Modifications to Solid Foods: Patient will continue to need full assist, checking for oral residue after swallow and monitoring for signs of aspiration during meals. Recommend diet upgrade to GROUND/ MECHANICALLY ALTERED (NDD2) solids presented by 1/2 teaspoon bites and NECTAR thick liquids, pills CRUSHED in PUREE. Continue strict aspiration precautions. Following strategies are crucial to ensure swallow safety: present small, 1/2 teaspoon bites, moisten food with sauce/gravy, check oral cavity for any residue or pocketing, alternate bite of food with teaspoon of liquid, ensure oral cavity is clear before presenting more bites, minimize distractions. Avoid sticky foods and mixed consistencies. Tray may need to be withheld depending on patient's level of alertness. TRANSCRIPTION COORDINATOR will continue to follow. Oral Medication Intake: Crushed with Puree Compensatory Strategies and Precautions to be Taken for Safe Swallow: Sitting Upright (90 deg) No Straw Liquids from Spoon Small Bites and Sips Alternate Liquids/Solids Rate of Ingestion Change Oral Check Supervision While Eating and Drinking for Safe Swallow: Total Assistance Foods to Avoid: sticky foods, mixed consistencies Swallowing Recommended Treatments: Compens. Strategy Educat. Recommendation for Speech: Inpatient Speech Therapy Fulfillment Representative Clinican/Clinical Fellow: Yes: Kathrine Paz Supervisory Statement: I have reviewed and agree with the student/clinical fellow's documentation: Yes Speech Language Pathologist: Trisha Dubois M.A., CCC-TRANSCRIPTION COORDINATOR
--- NOTE | 2021-02-19 11:26 | MHC.CM.PN ---
Per ROUNDS discussion, Patient is not yet medically cleared for dc (IV Ceftriaxone). Home/resume services is the goal and CM will follow for possible need to adjust the dc plan.
[2021-02-19] MEDS: Donepezil HCl 10 MG TABLET PO (20:26)
[2021-02-19] MEDS: cefTRIAXone sodium 1 GM in 0.9 % Sodium Chloride 50 ML IV (20:26)
[2021-02-20] VITALS (7 sets, daily range): BP systolic 100–160; BP diastolic 57–89; PULSE 70–104; RESP 16–18; TEMP 36.2–37.4; O2SAT 93–98
[2021-02-20] MEDS: Heparin Sodium,Porcine 5,000 UNIT/ML VIAL 5000 UNIT SUBCUT ×2 (01:46→13:41)
[2021-02-20] MEDS: Dextrose 5 % 1,000 ML 100 ML IVCONT (04:15)
[2021-02-20 06:51] LABS: Hematocrit 42.2 % (37.0-47.0); Hemoglobin 13.3 g/dl (12.0-16.0); Mean Corpuscular HGB Conc 31.5 g/dl (31.0-35.0); Mean Corpuscular Hemoglobin 29.9 pg (27.0-33.0); Mean Corpuscular Volume 94.8 fL (80.0-98.0); Mean Platelet Volume 12.6 fL (9.4-12.3); Platelet Count 206 X10*3/uL (160-400); Red Blood Count 4.45 X10*6/uL (4.20-5.50); Red Cell Distribution Width 13.2 % (11.0-16.0); White Blood Count 8.4 X10*3/uL (4.8-10.8)
[2021-02-20 07:12] LABS: Anion Gap 11 (12-20); Blood Urea Nitrogen 6 mg/dL (9-16); Calcium 9.3 mg/dL (8.4-10.2); Carbon Dioxide 28 mmol/L (22-29); Chloride 105 mmol/L (96-108); Creatinine Clr Calc Pharmacy 54.3; Estimated Glomerular Filt Rate > 60; Glucose Fasting 163 mg/dL (60-99); Sodium 140 mmol/L (135-145)
[2021-02-20] MEDS: polyethylene glycoL 3350 17 GM POWD.PACK PO (09:58)
[2021-02-20] MEDS: Memantine HCl 10 MG TABLET PO (09:59)
[2021-02-20] MEDS: Sertraline HCL 25 MG TABLET PO (09:59)
[2021-02-20] MEDS: amLODIPine Besylate 10 MG TABLET PO (09:59)
[2021-02-20] MEDS: Aspirin 81 MG TAB.CHEW PO (09:59)
[2021-02-20] MEDS: Omeprazole 20 MG CAPSULE.DR PO (09:59)
--- NOTE | 2021-02-20 10:26 | P.PNIM_ITS ---
Subjective Subjective Date of Service: 02/20/21 Interval History: cc: ams interval history: now at baseline Cardiovascular Cardiovascular: Reports no additional cardiovascular complaints Respiratory Respiratory: Reports no additional respiratory complaints Physical Exam Vital Signs: Vital Signs: Last Vital Signs Temp 99.3 F 02/20/21 07:20 Pulse 86 02/20/21 09:59 Resp 18 02/20/21 07:20 BP 160/89 H 02/20/21 09:59 Pulse Ox 93 02/20/21 07:20 BMI result Body Mass Index 18.3 Const Other:?Constitutional :? Altered, not in distress Neck : Normal inspection, Supple Cardiovascular : RRR, S1 S2, no lower extremity edema Respiratory : Good bilateral air entry,? no crackles, wheezes or rhonchi Gastrointestinal:? soft, lax, Normal bowel sounds, Non tender Skin : Warm, Dry Neurological :? , nonverbal, No focal defici Objective Data Active Medications Acetaminophen (Acetaminophen 325 Mg Tablet) 650 mg PO Q6H PRN PRN Reason: Pain, Mild (Pain Scale 1-3) Amlodipine Besylate (Amlodipine Besylate 10 Mg Tablet) 10 mg PO DAILY [facility]; Protocol Last Admin: 02/20/21 09:59 Dose: 10 mg Documented by: DENIA Aspirin (Aspirin 81 Mg Tab.Chew) 81 mg PO DAILY [facility] Last Admin: 02/20/21 09:59 Dose: 81 mg Documented by: DENIA Docusate Sodium (Docusate Sodium 100 Mg Capsule) 100 mg PO DAILY PRN PRN Reason: Constipation Docusate Sodium (Docusate Sodium 100 Mg Capsule) 100 mg PO DAILY [facility] Last Admin: 02/20/21 09:50 Dose: Not Given Documented by: DENIA Non-Admin Reason: Unable to swallow Donepezil HCl (Donepezil Hcl 10 Mg Tablet) 10 mg PO BEDTIME [facility] Last Admin: 02/19/21 20:26 Dose: 10 mg Documented by: CAREY Heparin Sodium (Porcine) (Heparin Sodium,Porcine 5,000 Unit/Ml Vial) 5,000 unit SUBCUT Q12H [facility] Last Admin: 02/20/21 01:46 Dose: 5,000 unit Documented by: CAREY Ceftriaxone Sodium 1 gm/ (Sodium Chloride) 50 mls @ 100 mls/hr IV Q24H [facility] Last Infusion: 02/19/21 20:59 Dose: 0 mls/hr Documented by: CAREY Memantine (Memantine Hcl 10 Mg Tablet) 10 mg PO BID [facility] Last Admin: 02/20/21 09:59 Dose: 10 mg Documented by: DENIA Omeprazole (Omeprazole 20 Mg Capsule.Dr) 20 mg PO DAILY [facility] Last Admin: 02/20/21 09:59 Dose: 20 mg Documented by: DENIA Ondansetron HCl (Ondansetron Hcl 4 Mg/2 Ml Vial) 4 mg IVPUSH Q8H PRN PRN Reason: Nausea and Vomiting Pharmacy Consult (Consult Rx Perform Med Rec) 1 each MISCELLANE ONCE PRN PRN Reason: Consult order Polyethylene Glycol (Polyethylene Glycol 3350 17 Gm Powd.Pack) 17 gm PO DAILY [facility] Last Admin: 02/20/21 09:58 Dose: 17 gm Documented by: DENIA Sertraline HCl (Sertraline Hcl 25 Mg Tablet) 25 mg PO DAILY [facility] Last Admin: 02/20/21 09:59 Dose: 25 mg Documented by: DENIA Labs CBC & Chem 7: 02/20/21 06:01 02/20/21 06:01 Labs: Laboratory Results - last 24 hr 02/20/21 02/20/21 06:01 06:01 MCV 94.8 MCH 29.9 MCHC 31.5 RDW 13.2 Plt Count 206 MPV 12.6 H Absolute Nucleated RBC 0.000 Nucleated RBC % (auto) 0.0 Anion Gap 11 L Estim Creat Clear Calc 54.3 Estimated GFR > 60 Fasting Glucose 163 H Calcium 9.3 Assessment and Plan (1) Hypernatremia: Status: Acute (2) DOMO (acute kidney injury): Status: Acute (3) Acute UTI: Status: Acute Assessment and Plan: 76-year-old female with past medical history of advanced dementia nonverbal, completely dependent presented to the hospital with near syncope/fall, and altered mentation found to have acute UTI acute UTI urine growing klebsiella and ecoli Continue ceftriaxone IV day 7 DOMO secondary to dehydration Resolved Metabolic encephalopathy 2/2 hypernatremia and uti recurrent reorientation now back to baseline Hypernatremia now back to 140 after 24hrs of d5w secondary to hypovolemic hypernatremia will hold d5w today, patient does seem to be able to drink enough to maintain, just needs to be encouraged monitor near syncopal episode likely vasovagal secondary to dehydration as well as infection no evidence of loss of consciousness DVT prophylaxis: heparin Quality Stroke Does the patient have a stroke diagnosis?: No VTE Prior VTE?: No VTE Risk Level:: Medical - moderate - high VTE Device Contraindication: Treatment Not Indicated VTE Drug Contraindication: N/A - Med Ordered
[2021-02-20] MEDS: cefTRIAXone sodium 1 GM in 0.9 % Sodium Chloride 50 ML IV (22:22)
[2021-02-21] MEDS: Heparin Sodium,Porcine 5,000 UNIT/ML VIAL 5000 UNIT SUBCUT (02:30)
[2021-02-21 04:00] VITALS: BP 112/76; PULSE 96; RESP 18; TEMP 36.4; O2SAT 95
[2021-02-21 05:57] LABS: Hematocrit 43.9 % (37.0-47.0); Hemoglobin 13.9 g/dl (12.0-16.0); Mean Corpuscular HGB Conc 31.7 g/dl (31.0-35.0); Mean Corpuscular Hemoglobin 30.2 pg (27.0-33.0); Mean Corpuscular Volume 95.4 fL (80.0-98.0); Mean Platelet Volume 11.9 fL (9.4-12.3); Platelet Count 235 X10*3/uL (160-400); Red Cell Distribution Width 13.7 % (11.0-16.0); White Blood Count 7.1 X10*3/uL (4.8-10.8)
[2021-02-21 06:13] LABS: Anion Gap 11 (12-20); Blood Urea Nitrogen 7 mg/dL (9-16); Calcium 9.7 mg/dL (8.4-10.2); Carbon Dioxide 29 mmol/L (22-29); Chloride 107 mmol/L (96-108); Estimated Glomerular Filt Rate > 60; Glucose Fasting 139 mg/dL (60-99); Potassium 4.2 mmol/L (3.3-5.1); Sodium 143 mmol/L (135-145)
[2021-02-21 08:00] VITALS: BP 118/69; PULSE 96; RESP 18; TEMP 37; O2SAT 98
--- NOTE | 2021-02-21 08:56 | PM.DS ---
DS: Providers Provider Date of Service: 02/21/21 Date of admission: 02/14/21 01:20 Primary care physician: Lani Whitfield MD Consults: 02/14/21 01:35 Consult to Nephrology Routine Consulting Provider: [facility] Reason for consultation: hypernatremia Has provider been notified: No DS: Diagnosis Discharge Diagnosis (1) Hypernatremia: Status: Acute (2) DOMO (acute kidney injury): Status: Acute (3) Acute UTI: Status: Acute DS: Summary Hospital Course Hospital Course: Patient was admitted for metabolic encephalopathy secondary to acute urinary tract infection due to Klebsiella and E coli, acute kidney injury, hypernatremia. She was treated with ceftriaxone and hypotonic fluids. Her renal function returned to normal, urinary tract infection resolved after 7 days of ceftriaxone. Patient's encephalopathy returned to baseline which is mostly nonverbal and bed-bound but alert. she was seen by SENIOR SALES ASSOCIATE who recommended NDDD2 solids and nectar thick liquids. patient should be encouraged to drink a cup of water with thickener at every meal. she has been doing ok with this as long as she is fed 1:1. she is back to baseline and will be discharged home with vna. she should have follow up labs in one week. Time Spent with Patient Time attestation: Total time spent providing and/or coordinating discharge services: Discharge coordination time: Greater than 30 minutes Quality: Stroke Does the patient have a stroke diagnosis?: No Physical Exam Vital Signs: Vital Signs: Last Vital Signs Temp 97.5 F 02/21/21 04:00 Pulse 96 02/21/21 04:00 Resp 18 02/21/21 04:00 BP 112/76 02/21/21 04:00 Pulse Ox 95 02/21/21 04:00 BMI result Body Mass Index 18.3 Const Other:?Constitutional :? Altered, not in distress Neck : Normal inspection, Supple Cardiovascular : RRR, S1 S2, no lower extremity edema Respiratory : Good bilateral air entry,? no crackles, wheezes or rhonchi Gastrointestinal:? soft, lax, Normal bowel sounds, Non tender Skin : Warm, Dry Neurological :? , nonverbal, No focal defici DS: Data Data Completed and Pending Labs on day of discharge: Laboratory Results - last 24 hr 02/21/21 02/21/21 05:24 05:24 WBC 7.1 RBC 4.60 Hgb 13.9 Hct 43.9 MCV 95.4 MCH 30.2 MCHC 31.7 RDW 13.7 Plt Count 235 MPV 11.9 Absolute Nucleated RBC 0.000 Nucleated RBC % (auto) 0.0 Sodium 143 Potassium 4.2 Chloride 107 Carbon Dioxide 29 Anion Gap 11 L BUN 7 L Creatinine 0.71 Estim Creat Clear Calc 49.0 Estimated GFR > 60 Fasting Glucose 139 H Calcium 9.7 Discharge Plan Discharge Patient Disposition: Home Health Service Discharge Diagnosis: uti, metabolic enceph, hypernatremia Referrals: Lani Whitfield MD [Primary Care Provider] - 1 Week Discharge Medications: Continued polyethylene glycol 3350 [Miralax] 17 gram/dose powder 17 g PO DAILY Qty: 119 RF: 0 metformin 500 mg Tablet 500 mg PO DAILY RF: 0 donepezil 10 mg Tablet 10 mg PO BEDTIME RF: 0 amlodipine 10 mg Tablet 10 mg PO DAILY RF: 0 simvastatin 20 mg Tablet 20 mg PO BEDTIME RF: 0 sertraline 25 mg Tablet 25 mg PO DAILY RF: 0 omeprazole 20 mg Capsule,Delayed Release(Dr/Ec) 20 mg PO DAILY RF: 0 aspirin 81 mg Tablet,Chewable 81 mg PO DAILY RF: 0 docusate sodium 100 mg Tablet 100 mg PO DAILY RF: 0 memantine 10 mg Tablet 10 mg PO BID RF: 0 calcium carbonate-vitamin D3 [Calcium 500 + D] 500 mg(1,250mg) -400 unit Tablet 2 tab PO DAILY RF: 0 acetaminophen 325 mg Tablet 650 mg PO Q6H PRN (Reason: Pain) RF: 0 Discharge Orders: Discharge Order (Routine); Ordered 02/21/21 Ordered By: Marcos John Diet: advance to usual diet Activity on Discharge: As tolerated Stand Alone Forms: Patient Portal Discharge page Other Ambulatory Orders: Basic Metabolic Panel (Routine) Timeframe: 1 Week Facility: [facility] - Location: Laboratory Ordered By: Marcos John Care Plan Goals: recovery Health Concerns: hypernatremia Plan of Treatment: NDD2, nectar thick liquids, cup of water with nectar thickening at every meal Assessment: see above
--- NOTE | 2021-02-21 09:12 | MHC.CM.PN ---
PT IS CLEARED TO DC HOME TODAY WITH RESUMPTION OF HER DAIRY HELPER SERVICES AND CARE PROVIDED BY HER CM MET WITH PTS WHO IS IN AGREEMENT WITH DC AND CONFIRMS PT WILL NEED BLS TRANSPORT TRANSPORT SCHEDULED FOR 1100 HOURS MEDICARE RIGHTS UPDATED
[2021-02-21 10:27] VITALS: BP 118/69; PULSE 96
[2021-02-21] MEDS: amLODIPine Besylate 10 MG TABLET PO (10:27)
[2021-02-21] MEDS: Sertraline HCL 25 MG TABLET PO (10:27)
[2021-02-21] MEDS: Aspirin 81 MG TAB.CHEW PO (10:28)
[2021-02-21] MEDS: Omeprazole 20 MG CAPSULE.DR PO (10:28)
[2021-02-21] MEDS: Memantine HCl 10 MG TABLET PO (10:28)
== END 2021-02-21 12:45 | disposition home health service (06) | DRG 682 ==
LOC: HO.ED 02-14 01:16 → HO.EDOVER 02-14 01:25 → HO.IMC 02-14 17:36
PROVIDERS: Family Medicine; Student in an Organized Health Care Education/Training Program; Admitting Provider Internal Medicine; Emergency Provider Emergency Medicine; PCP Internal Medicine; Visit Provider Internal Medicine
DX: N17.9 Acute kidney failure, unspecified (principal); G93.41 Metabolic encephalopathy; N39.0 Urinary tract infection, site not specified; E87.0 Hyperosmolality and hypernatremia; B96.1 Klebsiella pneumoniae [K. pneumoniae] as the cause of diseases classified elsewhere; B96.20 Unspecified Escherichia coli [E. coli] as the cause of diseases classified elsewhere; K21.9 Gastro-esophageal reflux disease without esophagitis; G30.9 Alzheimer's disease, unspecified; F02.80 Dementia in other diseases classified elsewhere, unspecified severity, without behavioral disturbance, psychotic disturbance, mood disturbance, and anxiety; E78.5 Hyperlipidemia, unspecified; E86.0 Dehydration; Z20.822 Contact with and (suspected) exposure to COVID-19; Z88.0 Allergy status to penicillin; Z88.5 Allergy status to narcotic agent; Z79.82 Long term (current) use of aspirin; Z79.84 Long term (current) use of oral hypoglycemic drugs; Z79.899 Other long term (current) drug therapy
CPT/HCPCS: 36415; 80048; 80076; 81001; 82947; 83605; 84295; 84484; 85025; 85027; 85610; 87040; 87086; 87088; 87186; 87635; 92610; 93005; 96360; 99285; J0696; J1956

== ENCOUNTER 2021-04-19 20:04 | Inpatient (IN) | payer MEDICARE, SELFPAY ==
[2021-04-19] VITALS (10 sets, daily range): BP systolic 84–106; BP diastolic 42–80; PULSE 82–111; RESP 16–22; TEMP 33.2–36.4; O2SAT 95–100; BMI 15.0
--- NOTE | ~2021-04-19 | XR_ITS ---
EXAMINATION: XR CHEST CLINICAL INFORMATION: Shortness of breath COMPARISON: 04/19/21 TECHNIQUE: Frontal portable view of the chest was obtained. FINDINGS: Devices overlie the patient. There is kyphosis and rotation. Gastrostomy projects over the mid stomach. Calcified aortic arch. The cardiac size is top normal. There are low lung volumes. The right hilum is obscured due to a patchy opacity in the right mid and upper lung. There are prominent perihilar opacities and some bibasilar lung disease. There is some pleural extrapleural density in the periphery of the right lower chest. There is no definite pneumothorax. Limited bone detail XR/XR chest 1V IMPRESSION: Limited study. Low lung volumes. Extensive bilateral lung disease. Interval worsening with a more focal opacity in the right mid and upper lung. Interval extubation and removal of right-sided vascular catheter and nasogastric tube
--- NOTE | ~2021-04-19 | XR_ITS ---
EXAMINATION: XR CHEST CLINICAL INFORMATION: Shortness of breath COMPARISON: 07/03/2014 TECHNIQUE: Frontal view of the chest was obtained. FINDINGS: Heart size normal. Compared to the prior study study from 2015, there is some increased reticular nodular markings not seen previously which could be secondary to mild interstitial edema. Alternatively, these could be chronic finding secondary to interstitial disease or possibly even bronchiectasis. No focal consolidations. No pleural effusions. XR/XR chest 1V IMPRESSION: Increase in reticular nodular densities as described above
--- NOTE | ~2021-04-19 | XR_ITS ---
EXAMINATION: XR CHEST CLINICAL INFORMATION: Line placement. COMPARISON: 09/16/2021 at 8:40 PM. TECHNIQUE: Frontal view of the chest was obtained. FINDINGS: Support devices: Endotracheal tube tip approximately 2.3 cm proximal to apolonia. Right internal jugular central venous catheter with tip terminating over the atriocaval junction. Enteric tube with tip overlying the proximal to mid gastric lumen. Mild diffuse increased interstitial markings are seen bilaterally with similar distribution. The heart and mediastinal structures are unremarkable. XR/XR chest 1V IMPRESSION: 1. Lines and tubes as detailed above. 2. Mild diffuse increased interstitial markings bilaterally are nonspecific, but demonstrate similar appearance and distribution. These could represent chronic interstitial changes however an infectious/inflammatory process cannot be excluded.
--- NOTE | 2021-04-19 20:16 | ECG_ITS ---
Test Reason : CP Blood Pressure : / mmHG Vent. Rate : 116 BPM Atrial Rate : 116 BPM P-R Int : 112 ms QRS Dur : 072 ms QT Int : 326 ms P-R-T Axes : 056 -69 078 degrees QTc Int : 453 ms Poor data quality Sinus tachycardia Left anterior fascicular block Possible Lateral infarct (cited on or before 13-FEB-2021) Abnormal ECG When compared with ECG of 13-FEB-2021 22:10, No significant change was found Referred By: Kimberli Birmingham Electronically Signed By:Cain Upton
[2021-04-19 20:37] LABS: Basophils Absolute Auto 0.1 X10*3/uL (0.0-0.2); Basophils Percent Auto 0.5 % (0-2); Eosinophils Absolute Auto 0.1 X10*3/uL (0.0-0.4); Eosinophils Percent Auto 0.8 % (0-4); Hematocrit 61.6 % (37.0-47.0); Imm Gran Abs Auto 0.07 X10*3/uL (0.00-0.03); Imm Gran Pct Auto 0.4 % (0.0-0.4); Lymphocytes Absolute Auto 5.2 X10*3/uL (1.2-4.9); Lymphocytes Percent Auto 32.7 % (20-40); MANUAL DIFF FLAG SCAN; Mean Corpuscular HGB Conc 29.2 g/dl (31.0-35.0); Mean Corpuscular Volume 102.5 fL (80.0-98.0); Mean Platelet Volume 13.8 fL (9.4-12.3); Monocytes Absolute Auto 0.9 X10*3/uL (0.1-1.2); Monocytes Percent Auto 5.4 % (2-11); Neutrophils Absolute Auto 9.6 x10*3/uL (2.0-8.3); Neutrophils Percent Auto 60.2 % (45-73); Red Blood Count 6.01 X10*6/uL (4.20-5.50); Red Cell Distribution Width 15.1 % (11.0-16.0); SCAN SMEAR FLAG 1
[2021-04-19 20:38] LABS: PLT ABN DIST 1
--- NOTE | 2021-04-19 20:43 | PC.NURSE ---
pt arrived unconscious w EMS without call ahead, unable to obtain information from EMS regarding pt hx and status, EMS bagging pt on arrival, RT took over ambu bag, IVs placed, rig hand applied, EKG obtained, labs drawn, perdomo placed, urine sent to lab, family arrived and spoke w provider, chest x-rays obtained. lab results pending.
[2021-04-19 20:50] LABS: Platelet Count 161 X10*3/uL (160-400)
[2021-04-19 20:51] LABS: SLIDE REVIEW VERIFIED
[2021-04-19 20:57] LABS: Appearance Urine TURBID; Color Urine YELLOW; Glucose Urine UA NEG (NEG); Leukocyte Esterase Urine 3+ (NEG); Nitrite Urine POS (NEG); PH 5.5 (5.0-8.0); Specific Gravity - Urine 1.025 (1.005-1.025); UACC Culture Trigger YES; Urine Blood TRACE (NEG); Urine Ketones NEG (NEG); Urine Protein TRACE MG/DL (NEG-TRACE)
--- NOTE | 2021-04-19 21:00 | ED_ITS ---
HPI - General Adult General Chief complaint: Altered Mental Status Stated complaint: edema Time Seen by Provider: 04/19/21 20:11 Source: family, EMS and old records reviewed Limitations: altered mental status History of Present Illness HPI narrative: Patient with a history of advanced dementia and recent hospitalization for sepsis secondary to urinary tract infection presents with difficulty breathing over the past 2 days. Positive cough. Patient is nonverbal She is a full code which was confirmed with family During transport she dropped her oxygen saturation and required bag valve mask ventilation No fevers or chills documented. No other history available Related Data Home Medications Medication Instructions Recorded Confirmed calcium carbonate 500 mg-vitamin 2 tab PO DAILY 02/14/21 04/20/21 D3 10 mcg (400 unit) tablet (Calcium 500 + D) docusate sodium 100 mg tablet 100 mg PO DAILY 02/14/21 04/20/21 donepezil 10 mg tablet 10 mg PO BEDTIME 02/14/21 04/20/21 memantine 10 mg tablet 10 mg PO BID 02/14/21 04/20/21 metformin 500 mg tablet 500 mg PO DAILY 02/14/21 04/20/21 omeprazole 20 mg capsule,delayed 20 mg PO DAILY@0630 02/14/21 04/20/21 release simvastatin 20 mg tablet 20 mg PO BEDTIME 02/14/21 04/20/21 amlodipine 5 mg tablet 5 mg PO DAILY 04/20/21 04/20/21 aspirin 81 mg tablet,delayed 81 mg PO DAILY 04/20/21 04/20/21 release sertraline 50 mg tablet 50 mg PO BEDTIME 04/20/21 04/20/21 silver sulfadiazine 1 % topical 1 appl TOPICAL DAILY 04/20/21 04/20/21 cream Previous Rx's Medication Instructions Recorded polyethylene glycol 3350 17 17 g PO DAILY #119 g 09/09/20 gram/dose oral powder (Miralax) Allergies Allergy/AdvReac Type Severity Reaction Status Date / Time Penicillins [PENICILLINS] Allergy Mild UNKNOWN Verified 09/09/20 12:18 morphine [Morphine] Allergy Unknown UNKNOWN Verified 09/09/20 12:18 From Percocet Allergy Unknown UNKNOWN Uncoded 11/28/19 14:56 Review of Systems 2 Review of Systems: Difficulty breathing. No other history known [facility] Past Medical History Medical History Alzheimer disease Diabetes GERD (gastroesophageal reflux disease) HTN (hypertension) Hyperlipidemia Social History Social History Household Members: Unknown / Unable to assess Housing: Unknown / Unable to assess Unable to assess alcohol history related to: Unknown Patient Tobacco Use Status: Tobacco use Unknown Currently Displaying Signs/Symptoms of Drug Intoxication Withdrawal: No Advance Directives: No Advance Directives Information Provided: Yes service: No Current occupational status: disabled Physical Exam Vital Signs: Vital Signs: Last Vital Signs Temp 99.7 F 04/20/21 10:00 Pulse 77 04/20/21 10:00 Resp 17 04/20/21 10:00 BP 95/58 L 04/20/21 10:00 Pulse Ox 94 04/20/21 10:00 BMI result Body Mass Index 15.0 Const: Other: Patient appears very lethargic. Fatigued. Initial blood pressure 80 systolic. Tachycardic. Oxygen maintaining in the 90s with [id number] HENMT: Other: Mucosa extremely dry Resp: Other: Coarse rales and rhonchi bilaterally Cardio: Other: Tachycardic without murmurs rubs or gallops GI: Other: Flat soft nondistended Skin: Other: Warm and dry without obvious rash Neuro: Other: Nonverbal. Does not follow commands. Course Course Course Narrative: Respiratory failure Sepsis Hypotension I had a discussion with the family including the , and her son, Carson, and a grandson They wish to proceed with the artificial ventilation. Patient treated with 30 mL/kilos of IV normal saline. Broad-spectrum antibiotics. Allergic to penicillin so placed on meropenem Clindamycin for presumed aspiration Patient's blood pressure improving with IV fluids Mental status remains lethargic Case discussed with Dr. Villareal from the ICU. Patient will be hospitalized in critical condition 21:38. Sodium is 163. Patient is extremely dehydrated, and this is not chronic. Continue IV normal saline Procedures Intubation Time out performed: Yes sedative: Etomidate paralytic: Succinylcholine Laryngoscope: fiber optic video scope ET Tube Size: 7.5 ET Tube Uncuffed: No Tube Secured Depth (cm): 20 Tube Secured Location: lips Tube Placement Confirmation: visualized tube passing through cords, equal breath sounds bilaterally, no breath sounds over epigastrium and confirmation by capnometry Patient Tolerated Procedure: well Intubation Complications: none Medical Decision Making Lab Data Result diagrams: 04/20/21 05:28 04/20/21 05:28 Labs: Lab Results 04/19/21 04/19/21 04/19/21 Range/Units 20:13 20:26 20:26 WBC 16.0 H (4.8-10.8) X10*3/uL RBC 6.01 H D (4.20-5.50) X10*6/uL Hgb 18.0 H D (12.0-16.0) g/dl Hct 61.6 H D (37.0-47.0) % MCV 102.5 H (80.0-98.0) fL MCH 30.0 (27.0-33.0) pg MCHC 29.2 L (31.0-35.0) g/dl RDW 15.1 (11.0-16.0) % Plt Count 161 D (160-400) X10*3/uL MPV 13.8 H (9.4-12.3) fL Immature Gran % (Auto) 0.4 (0.0-0.4) % Neut % (Auto) 60.2 (45-73) % Lymph % (Auto) 32.7 (20-40) % [place] % (Auto) 5.4 (2-11) % Eos % (Auto) 0.8 (0-4) % Baso % (Auto) 0.5 (0-2) % Lymph # (Auto) 5.2 H (1.2-4.9) X10*3/uL [place] # (Auto) 0.9 (0.1-1.2) X10*3/uL Eos # (Auto) 0.1 (0.0-0.4) X10*3/uL Baso # (Auto) 0.1 (0.0-0.2) X10*3/uL Abs Immat Gran (auto) 0.07 H (0.00-0.03) X10*3/uL Absolute Neuts (auto) 9.6 H (2.0-8.3) x10*3/uL Absolute Nucleated RBC 0.000 (0.0-0.012) X10*3/uL Nucleated RBC % (auto) 0.0 (0.0-0.2) /100WBC Smear Tech's Comments VERIFIED D-Dimer High Sensitivty NG/ML Sodium (135-145) mmol/L Potassium (3.3-5.1) mmol/L Chloride (96-108) mmol/L Carbon Dioxide (22-29) mmol/L Anion Gap (12-20) BUN (9-16) mg/dL Creatinine (0.5-1.4) mg/dL Estim Creat Clear Calc Estimated GFR POC Glucose 171 H (60-115) mg/dL Random Glucose (60-115) mg/dL Lactic Acid (0.5-2.0) mmol/L Calcium (8.4-10.2) mg/dL Total Bilirubin (0.0-1.0) mg/dL AST (5-31) U/L ALT (0-31) U/L Alkaline Phosphatase (39-117) U/L Troponin I High Sens 30.8 H (<3.5-17.0) ng/L B-Natriuretic Peptide TNP Total Protein (6.5-8.0) g/dL Albumin (3.5-5.0) g/dL TSH (0.32-4.0) uIU/mL Urine Color Urine Appearance Urine pH (5.0-8.0) Ur Specific [place] (1.005-1.025) Urine Protein (NEG-TRACE) MG/DL Urine Glucose (UA) (NEG) MG/DL Urine Ketones (NEG) MG/DL Urine Blood (NEG) Urine Nitrite (NEG) Ur Leukocyte Esterase (NEG) Urine RBC (0) /HPF Urine WBC (0-4) /HPF Ur Squamous Epith Cells /LPF Calcium Oxalate Crystal /LPF Urine Bacteria /LPF COVID-19 (PETROS) (Negative) COVID-19 Clin Com 04/19/21 04/19/21 04/19/21 Range/Units 20:41 21:00 21:00 WBC (4.8-10.8) X10*3/uL RBC (4.20-5.50) X10*6/uL Hgb (12.0-16.0) g/dl Hct (37.0-47.0) % MCV (80.0-98.0) fL MCH (27.0-33.0) pg MCHC (31.0-35.0) g/dl RDW (11.0-16.0) % Plt Count (160-400) X10*3/uL MPV (9.4-12.3) fL Immature Gran % (Auto) (0.0-0.4) % Neut % (Auto) (45-73) % Lymph % (Auto) (20-40) % [place] % (Auto) (2-11) % Eos % (Auto) (0-4) % Baso % (Auto) (0-2) % Lymph # (Auto) (1.2-4.9) X10*3/uL [place] # (Auto) (0.1-1.2) X10*3/uL Eos # (Auto) (0.0-0.4) X10*3/uL Baso # (Auto) (0.0-0.2) X10*3/uL Abs Immat Gran (auto) (0.00-0.03) X10*3/uL Absolute Neuts (auto) (2.0-8.3) x10*3/uL Absolute Nucleated RBC (0.0-0.012) X10*3/uL Nucleated RBC % (auto) (0.0-0.2) /100WBC Smear Tech's Comments D-Dimer High Sensitivty NG/ML Sodium 163 H* (135-145) mmol/L Potassium 4.3 (3.3-5.1) mmol/L Chloride 126 H (96-108) mmol/L Carbon Dioxide 26 (22-29) mmol/L Anion Gap 15 (12-20) BUN 50 H D (9-16) mg/dL Creatinine 1.22 (0.5-1.4) mg/dL Estim Creat Clear Calc 25.7 Estimated GFR 43 POC Glucose (60-115) mg/dL Random Glucose 195 H (60-115) mg/dL Lactic Acid (0.5-2.0) mmol/L Calcium 9.6 (8.4-10.2) mg/dL Total Bilirubin 0.9 (0.0-1.0) mg/dL AST 54 H (5-31) U/L ALT 113 H (0-31) U/L Alkaline Phosphatase 108 (39-117) U/L Troponin I High Sens (<3.5-17.0) ng/L B-Natriuretic Peptide Total Protein 7.8 (6.5-8.0) g/dL Albumin 3.8 (3.5-5.0) g/dL TSH 3.65 (0.32-4.0) uIU/mL Urine Color YELLOW Urine Appearance TURBID Urine pH 5.5 (5.0-8.0) Ur Specific [place] 1.025 (1.005-1.025) Urine Protein TRACE (NEG-TRACE) MG/DL Urine Glucose (UA) NEG (NEG) MG/DL Urine Ketones NEG (NEG) MG/DL Urine Blood TRACE (NEG) Urine Nitrite POS H (NEG) Ur Leukocyte Esterase 3+ H (NEG) Urine RBC 1-4 (0) /HPF Urine WBC 10-14 H (0-4) /HPF Ur Squamous Epith Cells 1+ /LPF Calcium Oxalate Crystal 1+ /LPF Urine Bacteria 3+ /LPF COVID-19 (PETROS) (Negative) COVID-19 Clin Com 04/19/21 04/19/21 04/19/21 Range/Units 21:00 21:02 22:27 WBC (4.8-10.8) X10*3/uL RBC (4.20-5.50) X10*6/uL Hgb (12.0-16.0) g/dl Hct (37.0-47.0) % MCV (80.0-98.0) fL MCH (27.0-33.0) pg MCHC (31.0-35.0) g/dl RDW (11.0-16.0) % Plt Count (160-400) X10*3/uL MPV (9.4-12.3) fL Immature Gran % (Auto) (0.0-0.4) % Neut % (Auto) (45-73) % Lymph % (Auto) (20-40) % [place] % (Auto) (2-11) % Eos % (Auto) (0-4) % Baso % (Auto) (0-2) % Lymph # (Auto) (1.2-4.9) X10*3/uL [place] # (Auto) (0.1-1.2) X10*3/uL Eos # (Auto) (0.0-0.4) X10*3/uL Baso # (Auto) (0.0-0.2) X10*3/uL Abs Immat Gran (auto) (0.00-0.03) X10*3/uL Absolute Neuts (auto) (2.0-8.3) x10*3/uL Absolute Nucleated RBC (0.0-0.012) X10*3/uL Nucleated RBC % (auto) (0.0-0.2) /100WBC Smear Tech's Comments D-Dimer High Sensitivty 598 NG/ML Sodium (135-145) mmol/L Potassium (3.3-5.1) mmol/L Chloride (96-108) mmol/L Carbon Dioxide (22-29) mmol/L Anion Gap (12-20) BUN (9-16) mg/dL Creatinine (0.5-1.4) mg/dL Estim Creat Clear Calc Estimated GFR POC Glucose (60-115) mg/dL Random Glucose (60-115) mg/dL Lactic Acid (0.5-2.0) mmol/L Calcium (8.4-10.2) mg/dL Total Bilirubin (0.0-1.0) mg/dL AST (5-31) U/L ALT (0-31) U/L Alkaline Phosphatase (39-117) U/L Troponin I High Sens (<3.5-17.0) ng/L B-Natriuretic Peptide 70 Total Protein (6.5-8.0) g/dL Albumin (3.5-5.0) g/dL TSH (0.32-4.0) uIU/mL Urine Color Urine Appearance Urine pH (5.0-8.0) Ur Specific [place] (1.005-1.025) Urine Protein (NEG-TRACE) MG/DL Urine Glucose (UA) (NEG) MG/DL Urine Ketones (NEG) MG/DL Urine Blood (NEG) Urine Nitrite (NEG) Ur Leukocyte Esterase (NEG) Urine RBC (0) /HPF Urine WBC (0-4) /HPF Ur Squamous Epith Cells /LPF Calcium Oxalate Crystal /LPF Urine Bacteria /LPF COVID-19 (PETROS) Negative (Negative) COVID-19 Clin Com See Note 04/19/21 Range/Units 22:27 WBC (4.8-10.8) X10*3/uL RBC (4.20-5.50) X10*6/uL Hgb (12.0-16.0) g/dl Hct (37.0-47.0) % MCV (80.0-98.0) fL MCH (27.0-33.0) pg MCHC (31.0-35.0) g/dl RDW (11.0-16.0) % Plt Count (160-400) X10*3/uL MPV (9.4-12.3) fL Immature Gran % (Auto) (0.0-0.4) % Neut % (Auto) (45-73) % Lymph % (Auto) (20-40) % [place] % (Auto) (2-11) % Eos % (Auto) (0-4) % Baso % (Auto) (0-2) % Lymph # (Auto) (1.2-4.9) X10*3/uL [place] # (Auto) (0.1-1.2) X10*3/uL Eos # (Auto) (0.0-0.4) X10*3/uL Baso # (Auto) (0.0-0.2) X10*3/uL Abs Immat Gran (auto) (0.00-0.03) X10*3/uL Absolute Neuts (auto) (2.0-8.3) x10*3/uL Absolute Nucleated RBC (0.0-0.012) X10*3/uL Nucleated RBC % (auto) (0.0-0.2) /100WBC Smear Tech's Comments D-Dimer High Sensitivty NG/ML Sodium (135-145) mmol/L Potassium (3.3-5.1) mmol/L Chloride (96-108) mmol/L Carbon Dioxide (22-29) mmol/L Anion Gap (12-20) BUN (9-16) mg/dL Creatinine (0.5-1.4) mg/dL Estim Creat Clear Calc Estimated GFR POC Glucose (60-115) mg/dL Random Glucose (60-115) mg/dL Lactic Acid 2.5 H* (0.5-2.0) mmol/L Calcium (8.4-10.2) mg/dL Total Bilirubin (0.0-1.0) mg/dL AST (5-31) U/L ALT (0-31) U/L Alkaline Phosphatase (39-117) U/L Troponin I High Sens (<3.5-17.0) ng/L B-Natriuretic Peptide Total Protein (6.5-8.0) g/dL Albumin (3.5-5.0) g/dL TSH (0.32-4.0) uIU/mL Urine Color Urine Appearance Urine pH (5.0-8.0) Ur Specific [place] (1.005-1.025) Urine Protein (NEG-TRACE) MG/DL Urine Glucose (UA) (NEG) MG/DL Urine Ketones (NEG) MG/DL Urine Blood (NEG) Urine Nitrite (NEG) Ur Leukocyte Esterase (NEG) Urine RBC (0) /HPF Urine WBC (0-4) /HPF Ur Squamous Epith Cells /LPF Calcium Oxalate Crystal /LPF Urine Bacteria /LPF COVID-19 (PETROS) (Negative) COVID-19 Clin Com Critical Care Time Critical Care Time Critical Care Time: Yes Total Critical Care Time: 120 Attestation: Critical care time outside separately billable procedures Discharge Plan Discharge Clinical Impression: Pneumonia, Sepsis Patient Disposition: Admitted As Inpatient Interventions: Admission Worksheet (ED) Last Done: 04/20/21 00:00 Discharge Date/Time: 04/20/21 00:08
[2021-04-19 21:04] LABS: Troponin-I High Sensitivity 30.8 ng/L (<3.5-17.0)
[2021-04-19 21:14] LABS: Bacteria Urine 3+ /LPF; Calcium Oxalate Crystals Urine 1+ /LPF; Squamous Epithelial Cell Urine 1+ /LPF
[2021-04-19 21:21] LABS: COVID-19 Test Negative (Negative)
[2021-04-19] MEDS: Etomidate 20 MG/10 ML VIAL IVPUSH (21:25)
[2021-04-19] MEDS: Succinylcholine Chloride 200 MG/10 ML VIAL 100 MG IVPUSH (21:26)
[2021-04-19 21:27] LABS: B Type Natriuretic Peptide 70 pg/mL (<100)
--- NOTE | 2021-04-19 21:27 | PC.NURSE ---
2113 etomidate pushed 2114 succ pushed 2114 pt intubated 21@lip, 7.5 , bagged by tube
--- NOTE | 2021-04-19 21:30 | PC.NURSE ---
2113 etomidate pushed 2114 succ pushed 2114 pt intubated, 21 at lip, 7.5 tube, pt bagged by physician Vent Settings, 16 assist control, 400 TV, 100% O2, 5 peep Vitals: 93 HR, 93% O2, RR 15, 65/46 BP 0 OG tube placed 2122 Vitals: 84 HR, 99% O2, RR 16, 106/72 HR
[2021-04-19 21:35] LABS: Alanine Aminotransferase 113 U/L (0-31); Albumin Level 3.8 g/dL (3.5-5.0); Alkaline Phosphatase 108 U/L (39-117); Anion Gap 15 (12-20); Aspartate Amino Transferase 54 U/L (5-31); Bilirubin Total 0.9 mg/dL (0.0-1.0); Blood Urea Nitrogen 50 mg/dL (9-16); Calcium 9.6 mg/dL (8.4-10.2); Carbon Dioxide 26 mmol/L (22-29); Chloride 126 mmol/L (96-108); Creatinine Clr Calc Pharmacy 25.7; Estimated Glomerular Filt Rate 43; Glucose Random 195 mg/dL (60-115); Potassium 4.3 mmol/L (3.3-5.1); Sodium 163 mmol/L (135-145); Total Protein 7.8 g/dL (6.5-8.0)
[2021-04-19 21:41] LABS: TSH reflex Free T4 3.65 uIU/mL (0.32-4.0)
[2021-04-19] MEDS: propofoL 1,000 MG/100 ML VIAL 4.91 MG IVCONT (21:50)
--- NOTE | 2021-04-19 21:51 | PC.NURSE ---
propofol started, icu provider in room to do central line
--- NOTE | 2021-04-19 21:59 | PC.NURSE ---
pt bp low, icu provider in room/aware, norepi started per her request
--- NOTE | 2021-04-19 22:00 | PC.NURSE ---
per icu provider norepi started on periperal line while they are obtaining central line. patient difficult stick, ed provider and icu provider aware, ed provider offered to do femoral stick- icu provider opted to draw second blood cultures and VL after central line is placed.
--- NOTE | 2021-04-19 22:13 | PC.NURSE ---
per icu provider norepi increased to 0.1mcg/kg/hr
--- NOTE | 2021-04-19 22:37 | PC.NURSE ---
xr performed for central line placement
[2021-04-19 22:48] LABS: D Dimer High Sensitivity 598 NG/ML
--- NOTE | 2021-04-19 22:52 | PHA.PROG ---
Admission Date/Time: April 19, 2021 22:39 Indication: Sepsis Weight in k.9 kg Adjusted body weight in K.56 kg [place] body weight in K kg Obesity Dosing Indication % IBW: N/A Serum Creatinine - Last 168 Hours 04/19/21 21:00 Creatinine 1.22 Estimated CrCl and GFR - Last 168 Hours 04/19/21 21:00 Estim Creat Clear Calc 25.7 Estimated GFR 43 Vancomycin Loading Dose: 1000 mg (25 mg/kg) Current Vancomycin Dosing Regimen: 750 mg Q24H Date and Time for next Vancomycin Level to be drawn: 04/22 @ 2100 Pharmacist Comments on Vancomycin Plan: Loading dose vancomycin 1000 mg to be given tonight 04/19 @ 2300. Start maintenance dose vancomycin 750 mg Q24H tomorrow 04/20 @ 2300. Expected AUC 534 with a trough of 17. Patient should be in therapeutic levels after 3rd dose Trough to be drawn prior to 4th dose Pharmacy to monitor renal function daily Earnestine Peoples PharmD Vancomycin dosing will take advantage of [employer] as a clinical decision support tool that uses Bayesian modeling to calculate individual patient's pharmacokinetic parameters and forecast the patient's drug concentration time course with the target goal AUC 24 range of 400 - 600 mg/L/hr.
--- NOTE | 2021-04-19 22:56 | PC.NURSE ---
called icu to give report, icu stated they will call back to obtain report
[2021-04-19 22:57] LABS: Lactic Acid 2.5 mmol/L (0.5-2.0)
--- NOTE | 2021-04-19 23:04 | PM.CCHP ---
History of Present Illness Date of Service: 04/19/21 Attending physician on admission: Satya Villareal Chief Complaint: Altered mental status The patient is a 76-year-old female with past medical history is of? advanced Alzheimer's? dementia, nonverbal at baseline, diabetes mellitus, hypertension, hyperlipidemia? with recent admission in February 2021? for sepsis UTI who presented to the emergency room with? complaints of altered mental status.? Family states the patient has been having? productive cough in the past 2 days,? but today? she became more weak and unable? to open her eyes.? En route to ED,? patient respiratory status worsened,? requiring bag valve mask ventilation EMS,? code status was addressed with family who wished for the patient to be intubated. ? She was intubated? shortly after arrival in the emergency room.? In the emergency room she was? tachycardic,? tachypneic,? with blood pressures? SBP in 80s.? Afebrile.? ?Laboratory data significant for ? WBC 16,? hemoglobin 18, hematocrit 61, sodium 163, chloride 126, BUN 50 creatinine 1.22.? ?UA? positive for? UTI ? Imaging:?? Chest x-ray concerning for some aspiration event ?Patient will be admitted to the ICU? for acute hypoxic respiratory failure? requiring intubation Review of Systems Review of Systems: unable to perform as patient is intubated PMF Past Medical History Medical History Alzheimer disease Diabetes GERD (gastroesophageal reflux disease) HTN (hypertension) Hyperlipidemia Social History Social History Household Members: Unknown / Unable to assess Housing: Unknown / Unable to assess Unable to assess alcohol history related to: Unknown Patient Tobacco Use Status: Tobacco use Unknown Advance Directives: No Advance Directives Information Provided: Yes service: No Current occupational status: disabled Meds Allergies Allergy/AdvReac Type Severity Reaction Status Date / Time Penicillins [PENICILLINS] Allergy Mild UNKNOWN Verified 09/09/20 12:18 morphine [Morphine] Allergy Unknown UNKNOWN Verified 09/09/20 12:18 From Percocet Allergy Unknown UNKNOWN Uncoded 11/28/19 14:56 Active Medications: Current Medications Chlorhexidine Gluconate (Chlorhexidine Gluc Oral Rinse 15 Ml Mouthwash) 15 ml BUCCAL Q8H ADILIA Heparin Sodium (Porcine) (Heparin Sodium,Porcine 5,000 Unit/Ml Vial) 5,000 unit SUBCUT Q8H ADILIA Norepinephrine Bitartrate (Levophed) 8 mg in 250 mls @ 0 mls/hr IVCONT .Q0M [facility]; Protocol Last Titration: 04/19/21 22:13 Dose: 0.1 mcg/kg/min, 7.67 mls/hr Documented by: Propofol (Diprivan) 1,000 mg in 100 mls @ 0 mls/hr IVCONT .Q0M [facility]; Protocol Last Titration: 04/19/21 22:05 Dose: 30 mcg/kg/min, 7.36 mls/hr Documented by: Pantoprazole Sodium 40 mg/ (Sodium Chloride) 110 mls @ 400 mls/hr IV DAILY@0630 [facility] Vancomycin HCl 1,000 mg/ (Sodium Chloride) 270 mls @ 270 mls/hr IV ONCE ONE Stop: 04/19/21 23:41 Dextrose (D5w) 1,000 mls @ 100 mls/hr IVCONT .Q10H [facility] Vancomycin HCl 750 mg/ Sodium (Chloride) 265 mls @ 265 mls/hr IV Q24H [facility] Pharmacy Consult (Consult Rx Vancomycin Dosing) 1 each MISCELLANE DAILY PRN PRN Reason: Consult order Home Medications Medication Instructions Recorded Confirmed Last Taken Type acetaminophen 325 mg tablet 650 mg PO Q6H PRN 02/14/21 02/14/21 Unknown History amlodipine 10 mg tablet 10 mg PO DAILY 02/14/21 02/14/21 Unknown History aspirin 81 mg chewable tablet 81 mg PO DAILY 02/14/21 02/14/21 Unknown History calcium carbonate 500 mg-vitamin 2 tab PO DAILY 02/14/21 02/14/21 Unknown History D3 10 mcg (400 unit) tablet (Calcium 500 + D) docusate sodium 100 mg tablet 100 mg PO DAILY 02/14/21 02/14/21 Unknown History donepezil 10 mg tablet 10 mg PO BEDTIME 02/14/21 02/14/21 Unknown History memantine 10 mg tablet 10 mg PO BID 02/14/21 02/14/21 Unknown History metformin 500 mg tablet 500 mg PO DAILY 02/14/21 02/14/21 Unknown History omeprazole 20 mg capsule,delayed 20 mg PO DAILY 02/14/21 02/14/21 Unknown History release sertraline 25 mg tablet 25 mg PO DAILY 02/14/21 02/14/21 Unknown History simvastatin 20 mg tablet 20 mg PO BEDTIME 02/14/21 02/14/21 Unknown History Physical Exam Vital Signs: Vital Signs: Last Vital Signs Pulse 83 04/19/21 22:36 Resp 16 04/19/21 22:36 BP 94/43 L 04/19/21 22:36 Pulse Ox 100 04/19/21 22:36 BMI result Body Mass Index 15.0 Focused assessment performed at 21:30 Physical Exam? Constitutional/ mental status: intubated Head: contracted right side Eyes: Pupils are equal, round and reactive to light. Ear, Nose and Throat: ETT, dry mucous membranes. Ears and nose without masses, lesions or deformities. Trachea midline. Neck: patient contracted to right side. Respiratory: lungs diminished.? on AC settings Cardiovascular: S1 S2 regular. No murmurs, rubs or gallops. normal capillary refill Gastrointestinal: Abdomen soft, non-tender, non-distended. Normal bowel sounds. No pulsatile mass. No hepatosplenomegaly. Genitourinary: Mccrary present Neurologic: No focal neurological deficits. moves extremities to pain. Skin: No rashes or lesions Psychiatric: Normal mood and affect Results Labs CBC and Chem 7: 04/19/21 20:26 04/19/21 21:00 Labs: Laboratory Results - last 24 hr 04/19/21 04/19/21 04/19/21 20:26 20:26 20:41 MCV 102.5 H MCH 30.0 MCHC 29.2 L RDW 15.1 Plt Count 161 D MPV 13.8 H Immature Gran % (Auto) 0.4 Neut % (Auto) 60.2 Lymph % (Auto) 32.7 [place] % (Auto) 5.4 Eos % (Auto) 0.8 Baso % (Auto) 0.5 Lymph # (Auto) 5.2 H [place] # (Auto) 0.9 Eos # (Auto) 0.1 Baso # (Auto) 0.1 Abs Immat Gran (auto) 0.07 H Absolute Neuts (auto) 9.6 H Absolute Nucleated RBC 0.000 Nucleated RBC % (auto) 0.0 Smear Tech's Comments VERIFIED D-Dimer High Sensitivty Anion Gap Estim Creat Clear Calc Estimated GFR Random Glucose Lactic Acid Calcium Total Bilirubin AST ALT Alkaline Phosphatase B-Natriuretic Peptide TNP Total Protein Albumin TSH Urine Color YELLOW Urine Appearance TURBID Urine pH 5.5 Ur Specific [place] 1.025 Urine Protein TRACE Urine Glucose (UA) NEG Urine Ketones NEG Urine Blood TRACE Urine Nitrite POS H Ur Leukocyte Esterase 3+ H Urine RBC 1-4 Urine WBC 10-14 H Ur Squamous Epith Cells 1+ Calcium Oxalate Crystal 1+ Urine Bacteria 3+ COVID-19 (PETROS) COVID-19 Clin Com 04/19/21 04/19/21 04/19/21 21:00 21:00 21:00 MCV MCH MCHC RDW Plt Count MPV Immature Gran % (Auto) Neut % (Auto) Lymph % (Auto) [place] % (Auto) Eos % (Auto) Baso % (Auto) Lymph # (Auto) [place] # (Auto) Eos # (Auto) Baso # (Auto) Abs Immat Gran (auto) Absolute Neuts (auto) Absolute Nucleated RBC Nucleated RBC % (auto) Smear Tech's Comments D-Dimer High Sensitivty Anion Gap 15 Estim Creat Clear Calc 25.7 Estimated GFR 43 Random Glucose 195 H Lactic Acid Calcium 9.6 Total Bilirubin 0.9 AST 54 H ALT 113 H Alkaline Phosphatase 108 B-Natriuretic Peptide 70 Total Protein 7.8 Albumin 3.8 TSH 3.65 Urine Color Urine Appearance Urine pH Ur Specific [place] Urine Protein Urine Glucose (UA) Urine Ketones Urine Blood Urine Nitrite Ur Leukocyte Esterase Urine RBC Urine WBC Ur Squamous Epith Cells Calcium Oxalate Crystal Urine Bacteria COVID-19 (PETROS) COVID-19 Clin Com 04/19/21 04/19/21 04/19/21 21:02 22:27 22:27 MCV MCH MCHC RDW Plt Count MPV Immature Gran % (Auto) Neut % (Auto) Lymph % (Auto) [place] % (Auto) Eos % (Auto) Baso % (Auto) Lymph # (Auto) [place] # (Auto) Eos # (Auto) Baso # (Auto) Abs Immat Gran (auto) Absolute Neuts (auto) Absolute Nucleated RBC Nucleated RBC % (auto) Smear Tech's Comments D-Dimer High Sensitivty 598 Anion Gap Estim Creat Clear Calc Estimated GFR Random Glucose Lactic Acid 2.5 H* Calcium Total Bilirubin AST ALT Alkaline Phosphatase B-Natriuretic Peptide Total Protein Albumin TSH Urine Color Urine Appearance Urine pH Ur Specific [place] Urine Protein Urine Glucose (UA) Urine Ketones Urine Blood Urine Nitrite Ur Leukocyte Esterase Urine RBC Urine WBC Ur Squamous Epith Cells Calcium Oxalate Crystal Urine Bacteria COVID-19 (PETROS) Negative COVID-19 Clin Com See Note Imaging Radiologist's Impressions: Impressions Chest X-Ray 04/19/21 20:47 IMPRESSION: Increase in reticular nodular densities as described above Chest X-Ray 04/19/21 22:33 IMPRESSION: 1. Lines and tubes as detailed above. 2. Mild diffuse increased interstitial markings bilaterally are nonspecific, but demonstrate similar appearance and distribution. These could represent chronic interstitial changes however an infectious/inflammatory process cannot be excluded. Assessment and Plan (1) Septic shock: Status: Acute (2) Pneumonia: Status: Acute (3) Acute UTI: Status: Acute (4) DOMO (acute kidney injury): Status: Acute (5) Dehydration: Status: Acute (6) Acute hypernatremia: Status: Acute Plan ?76-year-old female past medical history of advanced Alzheimer?s dementia? with previous history of uti,? who presenting acute respiratory distress? likely from aspiration event and UTI bacteremia..? Neuro: Altered mental status,? Underlying advanced dementia.? This was likely due to septic picture.? Cardiac:? Septic shock, Source? possibly aspiration pneumonia..? Patient likely had an aspiration event.? She also has UTI as a possible source.? On Levophed. ? Will continue antibiotics.? Wean off pressors when appropriate. Pulmonary:? ?Acute respiratory distress with hypoxemia- Chest x-ray? with evidence of possible aspiration event. Spoke with son,? who has admitted patient has been coughing more frequently especially after meals. States they started feeding her more pureed food but continued to cough. Most likely an aspiration pneumonia. Continue antibiotics? Renal:? DOMO- most likely related to hypoperfusion, nonoliguric.? Received 30ml/kg fluids in the ED.? Continue to check renal induces and urine output Hypernatremia- likely from severe dehydration.? Endo:? No acute issues.?? GI:? no acute issues ID:? septic shock from aspiration pneumonia vs UTI.? Patient ? penicillin allergy,? received clindamycin in the ED.? will cover with cefepime and vancomycin Heme/Onc:? No acute issues. Psych:? No acute issues. Miscellaneous:? this radio script writer spoke with? patient?s son? an informed patient is status.? Goals of care were also discussed.? Would like to think about DNR status tonight and address code status tomorrow? Diet: NPO prophylaxis: Heparin,? pantoprazole ? Critical care time:? X 90 minutes of critical care time Critical Care Time Critical Care Time (minutes): 90
--- NOTE | 2021-04-19 23:31 | W.PM.CCHP ---
Procedures Date of Service Date of Service: 04/19/21 Central Line Placement Right IJ: Central Line Comments: Patient requiring central line placement for Pressors.? Right internal jugular triple lumen central venous catheter placed in usual sterile conditions under ultrasound guidance for appropriate vascular access without immediate complications with assistance of ED MD. Central line position verified with Chest XRAY. Consent for Procedure: Emergent-no informed consent obtained Time out performed: Yes Sterile Technique Used: Yes Patient placed on monitor/pulse ox: Yes MD prep: mask, gown and gloves Central line prep: Chlorhexidine scrub Local anesthesia used: other anesthetic (On prop) Ultrasound used for placement: Yes Central line lumen inserted: triple Post procedure: sutured in place, good blood return, all ports aspirated, flushed, capped and sterile dressing applied Post procedure x-ray: tip of catheter in good position and no pneumothorax seen Patient tolerated procedure: well and no complications Complications: none
[2021-04-20] VITALS (33 sets, daily range): BP systolic 84–127; BP diastolic 50–76; PULSE 69–729; RESP 16–20; TEMP 33.2–38; O2SAT 94–100; BMI 16.0
[2021-04-20 00:06] LABS: Glucose, Whole Blood 171 mg/dL (60-115)
[2021-04-20 00:30] LABS: Reflex Lactate? Lactic Acid Added
[2021-04-20 00:33] LABS: VBG Base Excess -2.8 mmol/L; VBG HCO3 22 mmol/L (22-26); VBG pCO2 40 mmHg; VBG pH 7.34 (7.32-7.43); VBG pO2 44 mmHg
[2021-04-20] MEDS: Dextrose 5 % 1,000 ML 100 ML IVCONT ×3 (00:33→17:36)
[2021-04-20 00:40] LABS: Venous Blood Gas Refer to POC result
[2021-04-20] MEDS: cefEPime HCl 1 GM in 0.9 % Sodium Chloride 50 ML IV ×2 (00:46→13:55)
[2021-04-20] MEDS: vancomycin HCL 1,000 MG in 0.9 % Sodium Chloride 250 ML 270 MG IV (00:59)
[2021-04-20] MEDS: Heparin Sodium,Porcine 5,000 UNIT/ML VIAL 5000 UNIT SUBCUT ×3 (01:02→13:57)
[2021-04-20] MEDS: Chlorhexidine Gluc Oral Rinse 15 ML MOUTHWASH BUCCAL ×3 (01:02→13:56)
[2021-04-20 01:03] LABS: ~Lactic Acid-LAB USE ONLY 2.2 mmol/L (0.5-2.0)
[2021-04-20] MEDS: Clindamycin Phosphate/D5W 300 MG/50 ML PIGGYBACK 100 MG IV (01:13)
[2021-04-20 01:27] LABS: Glucose, Whole Blood 131 mg/dL (60-115)
[2021-04-20 02:46] LABS: Reflex Lactate? 2 Y
[2021-04-20 03:28] LABS: ~Lactic Acid-LAB USE ONLY 2.5 mmol/L (0.5-2.0)
[2021-04-20] MEDS: Furosemide 20 MG/2 ML VIAL IVPUSH (03:47)
[2021-04-20 05:38] LABS: VBG HCO3 23 mmol/L (22-26); VBG pCO2 36 mmHg; VBG pO2 42 mmHg
[2021-04-20 05:39] LABS: Basophils Percent Auto 0.2 % (0-2); Eosinophils Percent Auto 0.2 % (0-4); Imm Gran Abs Auto 0.07 X10*3/uL (0.00-0.03); Imm Gran Pct Auto 0.4 % (0.0-0.4); Mean Corpuscular Hemoglobin 29.7 pg (27.0-33.0); PLT ABN DIST 1; SCAN SMEAR FLAG 1
[2021-04-20 05:41] LABS: Hematocrit 46.9 % (37.0-47.0); Hemoglobin 13.9 g/dl (12.0-16.0); Lymphocytes Absolute Auto 1.6 X10*3/uL (1.2-4.9); Lymphocytes Percent Auto 9.5 % (20-40); Mean Corpuscular HGB Conc 29.6 g/dl (31.0-35.0); Mean Corpuscular Volume 100.2 fL (80.0-98.0); Mean Platelet Volume 13.3 fL (9.4-12.3); Monocytes Absolute Auto 0.6 X10*3/uL (0.1-1.2); Monocytes Percent Auto 3.5 % (2-11); Neutrophils Absolute Auto 14.3 x10*3/uL (2.0-8.3); Neutrophils Percent Auto 86.2 % (45-73); Platelet Count 161 X10*3/uL (160-400); Red Blood Count 4.68 X10*6/uL (4.20-5.50); Red Cell Distribution Width 14.7 % (11.0-16.0); White Blood Count 16.7 X10*3/uL (4.8-10.8)
[2021-04-20 05:49] LABS: Glucose, Whole Blood 252 mg/dL (60-115)
[2021-04-20 05:50] LABS: MANUAL DIFF FLAG NO
[2021-04-20] MEDS: Pantoprazole Sodium 40 MG/10 ML VIAL IVPUSH (05:53)
[2021-04-20 06:04] LABS: Magnesium 2.2 mg/dL (1.6-2.6)
--- NOTE | 2021-04-20 06:12 | PC.NURSE ---
ADMIT TO 253-1 APPROX 00:30...TUBED/VENTED...VCV/AC MODE...PROPOFOL 30 MCG/KG/MIN AND LEVOPHED 0.1 MCG/KG/MIN ON ARRIVAL....LI SCANT CONCENTRATED URINE...INCONTINANT SOFT BROWN STOOL..WOUNDS TO COCCYX AND LEFT BUTTOCK AND DTI TO LEFT HEEL...SEE PHOTOS...PER ICU MOBILITY SPECIALIST STARTED D5W 100 CC/HR...MULTIPLE ANTIBIOTICS PER MAY...PROPOFOL WEANED TO 20 MCG/KG/MIN...EYES OPEN BUT NO TRACKING OR RESPONSE TO VERBAL QUESTIONS..(+) GAG/COUGH...NSR..NO ECTOPY...STARTED D5W 100 CC/HR...LASIX 20 MG IVP X1...LI DRAINING LIGHT YELLOW URINE CURRENTLY..Q6H POC GLUCOSES REVIEWED BY MOBILITY SPECIALIST
[2021-04-20 06:13] LABS: Alanine Aminotransferase 89 U/L (0-31); Albumin Level 3.3 g/dL (3.5-5.0); Alkaline Phosphatase 91 U/L (39-117); Anion Gap 13 (12-20); Aspartate Amino Transferase 42 U/L (5-31); Blood Urea Nitrogen 44 mg/dL (9-16); Calcium 8.3 mg/dL (8.4-10.2); Carbon Dioxide 25 mmol/L (22-29); Chloride 121 mmol/L (96-108); Creatinine Clr Calc Pharmacy 30.7; Estimated Glomerular Filt Rate 49; Glucose Random 381 mg/dL (60-115); Phosphorus 2.9 mg/dL (2.7-4.5); Potassium 3.4 mmol/L (3.3-5.1); Sodium 156 mmol/L (135-145); Total Protein 6.4 g/dL (6.5-8.0)
[2021-04-20 06:20] LABS: Venous Blood Gas Refer to POC result
[2021-04-20] MEDS: Insulin Lispro 100 UNIT/ML 3 ML VIAL 10 UNIT SUBCUT (07:15)
[2021-04-20] MEDS: Albumin Human 25 % 100 ML IV ×3 (08:25→20:01)
[2021-04-20] MEDS: Potassium Chloride/H20 40 MEQ/100 ML PIGGYBACK 50 MEQ IV (08:26)
[2021-04-20] MEDS: propofoL 1,000 MG/100 ML VIAL 4.91 MG IVCONT (08:31)
--- NOTE | 2021-04-20 10:04 | P.CDIC_ITS ---
CDI Concurrent Query Documentation Clarification: PHYSICIAN'S DOCUMENTATION REQUEST Date of Query: 04/20/21 1004 Patient Name: Monica Akins Admit Date: 04/19/21 Dear Doctor, A review of the medical record indicates additional documentation may be needed. Please review below and update the documentation accordingly. Clinical Indicators: Risk Factors/Clinical Indicators/Treatments ED: 04/19 - Arrived with altered mental status, severe dehydration. ICU - Altered mental status. Advanced dementia. This was likely due to a septic picture. Based on the above, please further specify, in the Progress Notes, the known or suspected dx that corrleates with altered mental status: POA, resolved etc. Septic encephalopathy or other etiology of findings * Metabolic * Toxic * Toxic metabolic * Other (please specify) * Unable to determine Use of terms such as suspected, likely, concern for, or probable (associated with a specific diagnosis that is being evaluated, monitored, or treated as if it exists) are acceptable and can be coded in the inpatient setting, when documented at the time of discharge. Thank you, Pura Treviño [facility], CDIS Extension: [phone] Please use your independent medical judgment in providing your response. THIS QUERY IS PART OF THE PERMANENT MEDICAL RECORD Provider Response: Other ( severe Alzheimer's disease) Other Diagnosis: severe Alzheimer's disease
--- NOTE | 2021-04-20 10:12 | MHC.CLN ---
PT IS MODERATELY MALNOURISHED PT WITH MILDLY DEPLETED SUBCUTANEOUS FAT AND MUSCLE MASS, BMI 16, MULTIPLE PRESSURE INJURIES AND 11% SIGNIFICANT WT LOSS X 7 MONTHS DIET RX: NPO IF TF NEEDED; RECOMMEND PROMOTE AT MAX GOAL RATE 50ML/HR WITH 120ML FREE WATER FLUSHES Q SHIFT TO PROVIDE 1200KCALS (1330KCASL WITH SEDATION; 30KCALS/KG), 75G PROTEIN (1.7G/KG), 1367ML TOTAL WATER FROM FORMULA AND FLUSHES START FORMULA AT 10ML/HR AND INCREASE BY 10ML Q 4 HRS UNTIL MAX GOAL IS ACHIEVED PT IS AT POTENTIAL RISK FOR REFEEDING-MONITOR MG, PHOS AND K+ PROTEIN IN TF WILL PROMOTE WOUND HEALING SEE ALSO CLINICAL NUTRITION ASSESSMENT
--- NOTE | 2021-04-20 10:55 | PHA.MEDREC ---
Pharmacy Consult ? Medication Reconciliation Pharmacy has completed the medication reconciliation. Spoke with patients son and daughter who had a medication list which they were able to fax over for me. Patient last took medications yesterday.
--- NOTE | 2021-04-20 11:48 | P.CDIC_ITS ---
CDI Concurrent Query Documentation Clarification: PHYSICIAN'S DOCUMENTATION REQUEST Date of Query: 04/20/21 1148 Patient Name: Monica Akins Admit Date: 04/19/21 Dear Doctor, A review of the medical record indicates additional documentation may be needed. Please review below and update the documentation accordingly. Risk Factors/Clinical Indicators/Treatments Nutrition assessment notes patient is moderately malnourished with BMI 16. Tube feeding Multiple pressure injuries and 11% significant weight loss x 7 mths. If possible, please provide an associated diagnosis related to the abnormal BMI, such as: For a BMI <= 19: Malnourished, mild, moderate or other * Underweight * Weight loss * Cachexia * Anorexia Or: * BMI is not significant * Other (please specify) * Unable to determine Use of terms such as suspected, likely, concern for, or probable (associated with a specific diagnosis that is being evaluated, monitored, or treated as if it exists) are acceptable and can be coded in the inpatient setting, when documented at the time of discharge. Thank you, Pura Treviño [facility], CDIS Extension: [phone] Please use your independent medical judgment in providing your response. THIS QUERY IS PART OF THE PERMANENT MEDICAL RECORD Provider Response: Moderate Protein-Calorie Malnutrition
[2021-04-20] MEDS: Insulin Lispro 100 UNIT/ML 3 ML VIAL SUBCUT ×2 (12:10→18:04)
[2021-04-20 12:37] LABS: Glucose, Whole Blood 209 mg/dL (60-115)
--- NOTE | 2021-04-20 12:40 | MHC.CM.PN ---
Addendum entered by Sheila Mclaughlin 04/20/21 13:09: Per discussion with pt's son, pt has a POA and HCP at home: Copy requested - son to bring in 04/21 when he visits again. IMM in chart. Pt will need BLS transport to home. COVID vax x2: no booster Original Note: Pt presently intubated in ICU with septic PNA: Information obtained from EMR and her son who was in the room with pt: Pt resides at home with spouse, and nearly 24/7 care provided by other family members. In addition, pt has AIRPORT TRAFFIC [employer]ER services through the [facility] Adult Foster care program. She has 2x weekly [facility] RN visits, a hospital bed, w/c, shower chair, frankie and other adaptive equipment. Pt can get into a private vehicle to get to appts. Met with pt and her son, to review d/c plans: Per son, pt will return to home with 24/7 care. Son states family would opt for all life sustaining treatments at this time.
[2021-04-20 13:02] LABS: Anion Gap 16 (12-20); Blood Urea Nitrogen 36 mg/dL (9-16); Calcium 8.4 mg/dL (8.4-10.2); Carbon Dioxide 23 mmol/L (22-29); Chloride 120 mmol/L (96-108); Creatinine Clr Calc Pharmacy 36.4; Estimated Glomerular Filt Rate 60; Glucose Random 254 mg/dL (60-115); Potassium 3.6 mmol/L (3.3-5.1); Sodium 155 mmol/L (135-145)
--- NOTE | 2021-04-20 13:34 | P.PNCC_ITS ---
Subjective Subjective Date of Service: 04/20/21 Interval History: 76-year-old lady with underlying history of advanced Alzheimer's dementia, nonverbal at baseline, diabetes mellitus, hypertension with recent admission for sepsis with source admitted on 04/20/2021 with acute hypoxic respiratory failure secondary to pulmonary aspiration requiring intubation and ventilatory support further complicated by adult failure to thrive and hypernatremia. No events overnight. FiO2 requirements improved significantly. Critical Care Time (minutes): 60 Physical Exam Vital Signs: Vital Signs: Last Vital Signs Temp 100.0 F 04/20/21 13:00 Pulse 73 04/20/21 13:00 Resp 16 04/20/21 13:00 BP 112/55 L 04/20/21 13:00 Pulse Ox 97 04/20/21 13:00 BMI result Body Mass Index 16.0 Const: General: no acute distress and other ( sedated on the vent) Eyes: Sclerae: sclerae normal EOM: EOMs intact bilaterally Neck: Neck: Yes no lymphadenopathy, Yes trachea midline and Yes supple Resp: Auscultation: crackles ( right basilar) Cardio: Rate: regular rate Rhythm: regular rhythm Heart sounds: no gallops, no murmurs and no rubs GI: Palpation (GI): Soft to palpation and Other GI palpation findings present ( Nontender) Auscultation: normal bowel sounds Extrem: General: Yes no pedal edema, No clubbing and No cyanosis Objective Data Labs CBC & Chem 7: 04/20/21 05:28 04/20/21 12:04 Labs: Laboratory Results - last 24 hr 04/19/21 04/19/21 04/19/21 20:13 20:26 20:26 WBC 16.0 H RBC 6.01 H D Hgb 18.0 H D Hct 61.6 H D MCV 102.5 H MCH 30.0 MCHC 29.2 L RDW 15.1 Plt Count 161 D MPV 13.8 H Immature Gran % (Auto) 0.4 Neut % (Auto) 60.2 Lymph % (Auto) 32.7 [place] % (Auto) 5.4 Eos % (Auto) 0.8 Baso % (Auto) 0.5 Lymph # (Auto) 5.2 H [place] # (Auto) 0.9 Eos # (Auto) 0.1 Baso # (Auto) 0.1 Abs Immat Gran (auto) 0.07 H Absolute Neuts (auto) 9.6 H Absolute Nucleated RBC 0.000 Nucleated RBC % (auto) 0.0 Smear Tech's Comments VERIFIED D-Dimer High Sensitivty VBG pH VBG pCO2 VBG pO2 VBG HCO3 VBG O2 Saturation VBG Base Excess Sodium Potassium Chloride Carbon Dioxide Anion Gap BUN Creatinine Estim Creat Clear Calc Estimated GFR POC Glucose 171 H Random Glucose Lactic Acid Lactic Acid F/U @ 2Hr Lactic Acid F/U @ 4Hr Calcium Phosphorus Magnesium Total Bilirubin AST ALT Alkaline Phosphatase Troponin I High Sens 30.8 H B-Natriuretic Peptide TNP Total Protein Albumin TSH Urine Color Urine Appearance Urine pH Ur Specific [place] Urine Protein Urine Glucose (UA) Urine Ketones Urine Blood Urine Nitrite Ur Leukocyte Esterase Urine RBC Urine WBC Ur Squamous Epith Cells Calcium Oxalate Crystal Urine Bacteria COVID-19 (PETROS) COVID-19 Clin Com 04/19/21 04/19/21 04/19/21 20:41 21:00 21:00 WBC RBC Hgb Hct MCV MCH MCHC RDW Plt Count MPV Immature Gran % (Auto) Neut % (Auto) Lymph % (Auto) [place] % (Auto) Eos % (Auto) Baso % (Auto) Lymph # (Auto) [place] # (Auto) Eos # (Auto) Baso # (Auto) Abs Immat Gran (auto) Absolute Neuts (auto) Absolute Nucleated RBC Nucleated RBC % (auto) Smear Tech's Comments D-Dimer High Sensitivty VBG pH VBG pCO2 VBG pO2 VBG HCO3 VBG O2 Saturation VBG Base Excess Sodium 163 H* Potassium 4.3 Chloride 126 H Carbon Dioxide 26 Anion Gap 15 BUN 50 H D Creatinine 1.22 Estim Creat Clear Calc 25.7 Estimated GFR 43 POC Glucose Random Glucose 195 H Lactic Acid Lactic Acid F/U @ 2Hr Lactic Acid F/U @ 4Hr Calcium 9.6 Phosphorus Magnesium Total Bilirubin 0.9 AST 54 H ALT 113 H Alkaline Phosphatase 108 Troponin I High Sens B-Natriuretic Peptide Total Protein 7.8 Albumin 3.8 TSH 3.65 Urine Color YELLOW Urine Appearance TURBID Urine pH 5.5 Ur Specific [place] 1.025 Urine Protein TRACE Urine Glucose (UA) NEG Urine Ketones NEG Urine Blood TRACE Urine Nitrite POS H Ur Leukocyte Esterase 3+ H Urine RBC 1-4 Urine WBC 10-14 H Ur Squamous Epith Cells 1+ Calcium Oxalate Crystal 1+ Urine Bacteria 3+ COVID-19 (PETROS) COVID-19 Clin Com 04/19/21 04/19/21 04/19/21 21:00 21:02 22:27 WBC RBC Hgb Hct MCV MCH MCHC RDW Plt Count MPV Immature Gran % (Auto) Neut % (Auto) Lymph % (Auto) [place] % (Auto) Eos % (Auto) Baso % (Auto) Lymph # (Auto) [place] # (Auto) Eos # (Auto) Baso # (Auto) Abs Immat Gran (auto) Absolute Neuts (auto) Absolute Nucleated RBC Nucleated RBC % (auto) Smear Tech's Comments D-Dimer High Sensitivty 598 VBG pH VBG pCO2 VBG pO2 VBG HCO3 VBG O2 Saturation VBG Base Excess Sodium Potassium Chloride Carbon Dioxide Anion Gap BUN Creatinine Estim Creat Clear Calc Estimated GFR POC Glucose Random Glucose Lactic Acid Lactic Acid F/U @ 2Hr Lactic Acid F/U @ 4Hr Calcium Phosphorus Magnesium Total Bilirubin AST ALT Alkaline Phosphatase Troponin I High Sens B-Natriuretic Peptide 70 Total Protein Albumin TSH Urine Color Urine Appearance Urine pH Ur Specific [place] Urine Protein Urine Glucose (UA) Urine Ketones Urine Blood Urine Nitrite Ur Leukocyte Esterase Urine RBC Urine WBC Ur Squamous Epith Cells Calcium Oxalate Crystal Urine Bacteria COVID-19 (PETROS) Negative COVID-19 Clin Com See Note 04/19/21 04/20/21 04/20/21 22:27 00:26 00:37 WBC RBC Hgb Hct MCV MCH MCHC RDW Plt Count MPV Immature Gran % (Auto) Neut % (Auto) Lymph % (Auto) [place] % (Auto) Eos % (Auto) Baso % (Auto) Lymph # (Auto) [place] # (Auto) Eos # (Auto) Baso # (Auto) Abs Immat Gran (auto) Absolute Neuts (auto) Absolute Nucleated RBC Nucleated RBC % (auto) Smear Tech's Comments D-Dimer High Sensitivty VBG pH 7.34 VBG pCO2 40 VBG pO2 44 VBG HCO3 22 VBG O2 Saturation 67.0 VBG Base Excess -2.8 Sodium Potassium Chloride Carbon Dioxide Anion Gap BUN Creatinine Estim Creat Clear Calc Estimated GFR POC Glucose Random Glucose Lactic Acid 2.5 H* Lactic Acid F/U @ 2Hr 2.2 H* Lactic Acid F/U @ 4Hr Calcium Phosphorus Magnesium Total Bilirubin AST ALT Alkaline Phosphatase Troponin I High Sens B-Natriuretic Peptide Total Protein Albumin TSH Urine Color Urine Appearance Urine pH Ur Specific [place] Urine Protein Urine Glucose (UA) Urine Ketones Urine Blood Urine Nitrite Ur Leukocyte Esterase Urine RBC Urine WBC Ur Squamous Epith Cells Calcium Oxalate Crystal Urine Bacteria COVID-19 (PETROS) COVID-19 Clin Com 04/20/21 04/20/21 04/20/21 01:23 02:56 05:28 WBC RBC Hgb Hct MCV MCH MCHC RDW Plt Count MPV Immature Gran % (Auto) Neut % (Auto) Lymph % (Auto) [place] % (Auto) Eos % (Auto) Baso % (Auto) Lymph # (Auto) [place] # (Auto) Eos # (Auto) Baso # (Auto) Abs Immat Gran (auto) Absolute Neuts (auto) Absolute Nucleated RBC Nucleated RBC % (auto) Smear Tech's Comments D-Dimer High Sensitivty VBG pH VBG pCO2 VBG pO2 VBG HCO3 VBG O2 Saturation VBG Base Excess Sodium 156 H Potassium 3.4 D Chloride 121 H Carbon Dioxide 25 Anion Gap 13 BUN 44 H Creatinine 1.09 Estim Creat Clear Calc 30.7 Estimated GFR 49 POC Glucose 131 H Random Glucose 381 H* Lactic Acid Lactic Acid F/U @ 2Hr Lactic Acid F/U @ 4Hr 2.5 H* Calcium 8.3 L D Phosphorus 2.9 Magnesium 2.2 Total Bilirubin 1.0 AST 42 H ALT 89 H Alkaline Phosphatase 91 Troponin I High Sens B-Natriuretic Peptide Total Protein 6.4 L Albumin 3.3 L TSH Urine Color Urine Appearance Urine pH Ur Specific [place] Urine Protein Urine Glucose (UA) Urine Ketones Urine Blood Urine Nitrite Ur Leukocyte Esterase Urine RBC Urine WBC Ur Squamous Epith Cells Calcium Oxalate Crystal Urine Bacteria COVID-19 (PETROS) COVID-19 Clin Com 04/20/21 04/20/21 04/20/21 05:28 05:32 05:46 WBC 16.7 H RBC 4.68 D Hgb 13.9 D Hct 46.9 D MCV 100.2 H MCH 29.7 MCHC 29.6 L RDW 14.7 Plt Count 161 MPV 13.3 H Immature Gran % (Auto) 0.4 Neut % (Auto) 86.2 H Lymph % (Auto) 9.5 L [place] % (Auto) 3.5 Eos % (Auto) 0.2 Baso % (Auto) 0.2 Lymph # (Auto) 1.6 [place] # (Auto) 0.6 Eos # (Auto) 0.0 Baso # (Auto) 0.0 Abs Immat Gran (auto) 0.07 H Absolute Neuts (auto) 14.3 H Absolute Nucleated RBC 0.000 Nucleated RBC % (auto) 0.0 Smear Tech's Comments D-Dimer High Sensitivty VBG pH 7.40 VBG pCO2 36 VBG pO2 42 VBG HCO3 23 VBG O2 Saturation 68.0 VBG Base Excess -1.0 Sodium Potassium Chloride Carbon Dioxide Anion Gap BUN Creatinine Estim Creat Clear Calc Estimated GFR POC Glucose 252 H Random Glucose Lactic Acid Lactic Acid F/U @ 2Hr Lactic Acid F/U @ 4Hr Calcium Phosphorus Magnesium Total Bilirubin AST ALT Alkaline Phosphatase Troponin I High Sens B-Natriuretic Peptide Total Protein Albumin TSH Urine Color Urine Appearance Urine pH Ur Specific [place] Urine Protein Urine Glucose (UA) Urine Ketones Urine Blood Urine Nitrite Ur Leukocyte Esterase Urine RBC Urine WBC Ur Squamous Epith Cells Calcium Oxalate Crystal Urine Bacteria COVID-19 (PETROS) COVID-19 [employer] 04/20/21 04/20/21 12:04 12:04 WBC RBC Hgb Hct MCV MCH MCHC RDW Plt Count MPV Immature Gran % (Auto) Neut % (Auto) Lymph % (Auto) [place] % (Auto) Eos % (Auto) Baso % (Auto) Lymph # (Auto) [place] # (Auto) Eos # (Auto) Baso # (Auto) Abs Immat Gran (auto) Absolute Neuts (auto) Absolute Nucleated RBC Nucleated RBC % (auto) Smear Tech's Comments D-Dimer High Sensitivty VBG pH VBG pCO2 VBG pO2 VBG HCO3 VBG O2 Saturation VBG Base Excess Sodium 155 H Potassium 3.6 Chloride 120 H Carbon Dioxide 23 Anion Gap 16 BUN 36 H Creatinine 0.92 Estim Creat Clear Calc 36.4 Estimated GFR 60 POC Glucose 209 H Random Glucose 254 H Lactic Acid Lactic Acid F/U @ 2Hr Lactic Acid F/U @ 4Hr Calcium 8.4 Phosphorus Magnesium Total Bilirubin AST ALT Alkaline Phosphatase Troponin I High Sens B-Natriuretic Peptide Total Protein Albumin TSH Urine Color Urine Appearance Urine pH Ur Specific [place] Urine Protein Urine Glucose (UA) Urine Ketones Urine Blood Urine Nitrite Ur Leukocyte Esterase Urine RBC Urine WBC Ur Squamous Epith Cells Calcium Oxalate Crystal Urine Bacteria COVID-19 (PETROS) COVID-19 Clin Com Microbiology Microbiology Results: Microbiology 04/19/21 Unknown Urine Catheterized - Mccrary Catheter Urine Culture - Preliminary Gram negative [place] Progress Note: A&P Assessment and plan (1) DOMO (acute kidney injury): Status: Acute (2) Acute hypernatremia: Status: Acute (3) Acute respiratory failure with hypoxia: Status: Acute (4) Pulmonary aspiration: Status: Acute (5) Diabetes: Status: Acute (6) Alzheimer disease: Status: Acute (7) Adult failure to thrive: Status: Acute Plan Assessment: 76-year-old lady with underlying advanced Alzheimer's dementia admitted with acute hypoxic respiratory failure secondary to pulmonary aspiration requiring intubation and pressor support Plan: Neuro: No acute issues. Underlying advanced Alzheimer's disease. Cardiac: Required pressors with intubation and sedation, continue to titrate off as tolerated. Pulmonary: Acute hypoxic respiratory failure secondary to pulmonary aspiration. FiO2 requirements improved significantly. Renal: Acute renal failure and hypernatremia secondary to poor p.o. intake. Non oliguric. Improving with IV fluids. Continue to monitor renal indices and urine output. Endo: No acute issues. GI: Surgical consultation for PEG placed. ID: No evidence of septic shock. Pressor requirements are secondary to sedation and hypovolemia. Empiric antibiotics coverage for aspiration pneumonitis. Heme/Onc: No acute issues. Psych: No acute issues. Miscellaneous: Prolonged family discussion held with patient's sounds and who would like to proceed with full support understanding that improvement of swallowing reflex is unlikely and that PEG does not prevent further aspiration. Prophylaxis: heparin ppi Diet: NPO Critical care time spent: 60 minutes Quality Stroke Does the patient have a stroke diagnosis?: No VTE Prior VTE?: No VTE Risk Level:: Medical - moderate - high VTE Device Contraindication: Treatment Not Indicated VTE Drug Contraindication: N/A - Med Ordered
--- NOTE | 2021-04-20 14:41 | P.CONGS_ITS ---
History of Present Illness Consult details Consult date: 04/20/21 Narrative: 76-year-old female, with longstanding history of Alzheimer's dementia, for PEG tube placement. She was admitted to the hospital last night after she was noted to have altered mental status at home with weakness. She developed respiratory failure and was intubated she has been in the ICU since admission because of respiratory failure. This was deemed to be secondary to aspiration pneumonia. She has had apparent failure to thrive as well. She is being referred for PEG tube placement. She currently is still on low-dose pressors. Review of Systems Review of Systems: Patient admitted for altered mental status, non communicative, so no review of systems available at this time [facility] Past Medical History Medical History (Updated 04/21/21 @ 13:02 by Satya Villareal MD) Alzheimer disease Diabetes GERD (gastroesophageal reflux disease) HTN (hypertension) Hyperlipidemia Septic shock Social History Social History Household Members: Unknown / Unable to assess Housing: Unknown / Unable to assess Unable to assess alcohol history related to: Unknown Patient Tobacco Use Status: Tobacco use Unknown service: No Current occupational status: disabled Meds Allergies Allergy/AdvReac Type Severity Reaction Status Date / Time Penicillins [PENICILLINS] Allergy Mild UNKNOWN Verified 09/09/20 12:18 morphine [Morphine] Allergy Unknown UNKNOWN Verified 09/09/20 12:18 From Percocet Allergy Unknown UNKNOWN Uncoded 11/28/19 14:56 Active Medications: Current Medications Chlorhexidine Gluconate (Chlorhexidine Gluc Oral Rinse 15 Ml Mouthwash) 15 ml BUCCAL Q8H ADILIA Last Admin: 04/20/21 13:56 Dose: 15 ml Documented by: Heparin Sodium (Porcine) (Heparin Sodium,Porcine 5,000 Unit/Ml Vial) 5,000 unit SUBCUT Q8H ADILIA Last Admin: 04/20/21 13:57 Dose: 5,000 unit Documented by: Norepinephrine Bitartrate (Levophed) 8 mg in 250 mls @ 0 mls/hr IVCONT .Q0M [facility]ILIA; Protocol Last Titration: 04/20/21 10:56 Dose: 0.16 mcg/kg/min, 12.27 mls/hr Documented by: Propofol (Diprivan) 1,000 mg in 100 mls @ 0 mls/hr IVCONT .Q0M [facility]; Protocol Last Admin: 04/20/21 08:31 Dose: 20 mcg/kg/min, 4.91 mls/hr Documented by: Dextrose (D5w) 1,000 mls @ 100 mls/hr IVCONT .Q10H [facility] [place] Last Admin: 04/20/21 08:42 Dose: 100 mls/hr Documented by: Vancomycin HCl 750 mg/ Sodium (Chloride) 265 mls @ 265 mls/hr IV Q24H [facility] [place] Albumin Human (Kedbumin 25 %) 100 mls @ 100 mls/hr IV Q6H [facility] [place] Stop: 04/21/21 02:59 Last Admin: 04/20/21 13:53 Dose: 100 mls/hr Documented by: Cefepime HCl 1 gm/ Sodium (Chloride) 50 mls @ 100 mls/hr IV Q12H [facility] [place] Last Infusion: 04/20/21 14:37 Dose: Infused Documented by: Insulin Human Lispro (Insulin Lispro 100 Unit/Ml 3 Ml Vial) 0 unit SUBCUT Q6H [facility] [place]; Protocol Last Admin: 04/20/21 12:10 Dose: 4 unit Documented by: Pantoprazole Sodium (Pantoprazole Sodium 40 Mg/10 Ml Vial) 40 mg IVPUSH DAILY@0630 [facility] [place] Last Admin: 04/20/21 05:53 Dose: 40 mg Documented by: Pharmacy Consult (Consult Rx Vancomycin Dosing) 1 each MISCELLANE DAILY PRN PRN Reason: Consult order Home Medications Medication Instructions Recorded Confirmed Last Taken Type calcium carbonate 500 mg-vitamin 2 tab PO DAILY 02/14/21 04/20/21 04/19/21 History D3 10 mcg (400 unit) tablet (Calcium 500 + D) docusate sodium 100 mg tablet 100 mg PO DAILY 02/14/21 04/20/21 04/19/21 History donepezil 10 mg tablet 10 mg PO BEDTIME 02/14/21 04/20/21 04/19/21 History memantine 10 mg tablet 10 mg PO BID 02/14/21 04/20/21 04/19/21 History metformin 500 mg tablet 500 mg PO DAILY 02/14/21 04/20/21 04/19/21 History omeprazole 20 mg capsule,delayed 20 mg PO DAILY@0630 02/14/21 04/20/21 04/19/21 History release simvastatin 20 mg tablet 20 mg PO BEDTIME 02/14/21 04/20/21 04/19/21 History amlodipine 5 mg tablet 5 mg PO DAILY 04/20/21 04/20/21 04/19/21 History aspirin 81 mg tablet,delayed 81 mg PO DAILY 04/20/21 04/20/21 04/19/21 History release sertraline 50 mg tablet 50 mg PO BEDTIME 04/20/21 04/20/21 04/19/21 History silver sulfadiazine 1 % topical 1 appl TOPICAL DAILY 04/20/21 04/20/21 04/19/21 History cream Physical Exam Vital Signs: Vital Signs: Last Vital Signs Temp 100.0 F 04/20/21 14:00 Pulse 74 04/20/21 14:00 Resp 16 04/20/21 14:00 BP 101/55 L 04/20/21 14:00 Pulse Ox 98 04/20/21 14:00 BMI result Body Mass Index 16.0 Const: Other: Currently intubated, on the ventilator Resp: Other: Good breath sounds bilaterally Cardio: Rhythm: regular rhythm GI: Other: Soft, no guarding or rebound, distended, no obvious surgical scars Results Labs Result diagrams: 04/21/21 05:30 04/21/21 11:38 Labs: Abnormal lab results 04/19/21 04/19/21 04/19/21 Range/Units 20:13 20:26 20:26 WBC 16.0 H (4.8-10.8) X10*3/uL RBC 6.01 H D (4.20-5.50) X10*6/uL Hgb 18.0 H D (12.0-16.0) g/dl Hct 61.6 H D (37.0-47.0) % MCV 102.5 H (80.0-98.0) fL MCHC 29.2 L (31.0-35.0) g/dl MPV 13.8 H (9.4-12.3) fL Neut % (Auto) (45-73) % Lymph % (Auto) (20-40) % Lymph # (Auto) 5.2 H (1.2-4.9) X10*3/uL Abs Immat Gran (auto) 0.07 H (0.00-0.03) X10*3/uL Absolute Neuts (auto) 9.6 H (2.0-8.3) x10*3/uL Sodium (135-145) mmol/L Chloride (96-108) mmol/L BUN (9-16) mg/dL POC Glucose 171 H (60-115) mg/dL Random Glucose (60-115) mg/dL Lactic Acid (0.5-2.0) mmol/L Lactic Acid F/U @ 2Hr (0.5-2.0) mmol/L Lactic Acid F/U @ 4Hr (0.5-2.0) mmol/L Calcium (8.4-10.2) mg/dL AST (5-31) U/L ALT (0-31) U/L Troponin I High Sens 30.8 H (<3.5-17.0) ng/L Total Protein (6.5-8.0) g/dL Albumin (3.5-5.0) g/dL Urine Nitrite (NEG) Ur Leukocyte Esterase (NEG) Urine WBC (0-4) /HPF 04/19/21 04/19/21 04/19/21 Range/Units 20:41 21:00 22:27 WBC (4.8-10.8) X10*3/uL RBC (4.20-5.50) X10*6/uL Hgb (12.0-16.0) g/dl Hct (37.0-47.0) % MCV (80.0-98.0) fL MCHC (31.0-35.0) g/dl MPV (9.4-12.3) fL Neut % (Auto) (45-73) % Lymph % (Auto) (20-40) % Lymph # (Auto) (1.2-4.9) X10*3/uL Abs Immat Gran (auto) (0.00-0.03) X10*3/uL Absolute Neuts (auto) (2.0-8.3) x10*3/uL Sodium 163 H* (135-145) mmol/L Chloride 126 H (96-108) mmol/L BUN 50 H D (9-16) mg/dL POC Glucose (60-115) mg/dL Random Glucose 195 H (60-115) mg/dL Lactic Acid 2.5 H* (0.5-2.0) mmol/L Lactic Acid F/U @ 2Hr (0.5-2.0) mmol/L Lactic Acid F/U @ 4Hr (0.5-2.0) mmol/L Calcium (8.4-10.2) mg/dL AST 54 H (5-31) U/L ALT 113 H (0-31) U/L Troponin I High Sens (<3.5-17.0) ng/L Total Protein (6.5-8.0) g/dL Albumin (3.5-5.0) g/dL Urine Nitrite POS H (NEG) Ur Leukocyte Esterase 3+ H (NEG) Urine WBC 10-14 H (0-4) /HPF 04/20/21 04/20/21 04/20/21 Range/Units 00:37 01:23 02:56 WBC (4.8-10.8) X10*3/uL RBC (4.20-5.50) X10*6/uL Hgb (12.0-16.0) g/dl Hct (37.0-47.0) % MCV (80.0-98.0) fL MCHC (31.0-35.0) g/dl MPV (9.4-12.3) fL Neut % (Auto) (45-73) % Lymph % (Auto) (20-40) % Lymph # (Auto) (1.2-4.9) X10*3/uL Abs Immat Gran (auto) (0.00-0.03) X10*3/uL Absolute Neuts (auto) (2.0-8.3) x10*3/uL Sodium (135-145) mmol/L Chloride (96-108) mmol/L BUN (9-16) mg/dL POC Glucose 131 H (60-115) mg/dL Random Glucose (60-115) mg/dL Lactic Acid (0.5-2.0) mmol/L Lactic Acid F/U @ 2Hr 2.2 H* (0.5-2.0) mmol/L Lactic Acid F/U @ 4Hr 2.5 H* (0.5-2.0) mmol/L Calcium (8.4-10.2) mg/dL AST (5-31) U/L ALT (0-31) U/L Troponin I High Sens (<3.5-17.0) ng/L Total Protein (6.5-8.0) g/dL Albumin (3.5-5.0) g/dL Urine Nitrite (NEG) Ur Leukocyte Esterase (NEG) Urine WBC (0-4) /HPF 04/20/21 04/20/21 04/20/21 Range/Units 05:28 05:28 05:46 WBC 16.7 H (4.8-10.8) X10*3/uL RBC (4.20-5.50) X10*6/uL Hgb (12.0-16.0) g/dl Hct (37.0-47.0) % MCV 100.2 H (80.0-98.0) fL MCHC 29.6 L (31.0-35.0) g/dl MPV 13.3 H (9.4-12.3) fL Neut % (Auto) 86.2 H (45-73) % Lymph % (Auto) 9.5 L (20-40) % Lymph # (Auto) (1.2-4.9) X10*3/uL Abs Immat Gran (auto) 0.07 H (0.00-0.03) X10*3/uL Absolute Neuts (auto) 14.3 H (2.0-8.3) x10*3/uL Sodium 156 H (135-145) mmol/L Chloride 121 H (96-108) mmol/L BUN 44 H (9-16) mg/dL POC Glucose 252 H (60-115) mg/dL Random Glucose 381 H* (60-115) mg/dL Lactic Acid (0.5-2.0) mmol/L Lactic Acid F/U @ 2Hr (0.5-2.0) mmol/L Lactic Acid F/U @ 4Hr (0.5-2.0) mmol/L Calcium 8.3 L D (8.4-10.2) mg/dL AST 42 H (5-31) U/L ALT 89 H (0-31) U/L Troponin I High Sens (<3.5-17.0) ng/L Total Protein 6.4 L (6.5-8.0) g/dL Albumin 3.3 L (3.5-5.0) g/dL Urine Nitrite (NEG) Ur Leukocyte Esterase (NEG) Urine WBC (0-4) /HPF 04/20/21 04/20/21 Range/Units 12:04 12:04 WBC (4.8-10.8) X10*3/uL RBC (4.20-5.50) X10*6/uL Hgb (12.0-16.0) g/dl Hct (37.0-47.0) % MCV (80.0-98.0) fL MCHC (31.0-35.0) g/dl MPV (9.4-12.3) fL Neut % (Auto) (45-73) % Lymph % (Auto) (20-40) % Lymph # (Auto) (1.2-4.9) X10*3/uL Abs Immat Gran (auto) (0.00-0.03) X10*3/uL Absolute Neuts (auto) (2.0-8.3) x10*3/uL Sodium 155 H (135-145) mmol/L Chloride 120 H (96-108) mmol/L BUN 36 H (9-16) mg/dL POC Glucose 209 H (60-115) mg/dL Random Glucose 254 H (60-115) mg/dL Lactic Acid (0.5-2.0) mmol/L Lactic Acid F/U @ 2Hr (0.5-2.0) mmol/L Lactic Acid F/U @ 4Hr (0.5-2.0) mmol/L Calcium (8.4-10.2) mg/dL AST (5-31) U/L ALT (0-31) U/L Troponin I High Sens (<3.5-17.0) ng/L Total Protein (6.5-8.0) g/dL Albumin (3.5-5.0) g/dL Urine Nitrite (NEG) Ur Leukocyte Esterase (NEG) Urine WBC (0-4) /HPF Short CBC 04/19/21 04/20/21 Range/Units 20:26 05:28 WBC 16.0 H 16.7 H (4.8-10.8) X10*3/uL Hgb 18.0 H D 13.9 D (12.0-16.0) g/dl Hct 61.6 H D 46.9 D (37.0-47.0) % Plt Count 161 D 161 (160-400) X10*3/uL BMP 04/19/21 04/20/21 04/20/21 21:00 05:28 12:04 Sodium 163 H* 156 H 155 H Potassium 4.3 3.4 D 3.6 Chloride 126 H 121 H 120 H Carbon Dioxide 26 25 23 BUN 50 H D 44 H 36 H Creatinine 1.22 1.09 0.92 Calcium 9.6 8.3 L D 8.4 Liver Function 04/19/21 04/20/21 Range/Units 21:00 05:28 Total Bilirubin 0.9 1.0 (0.0-1.0) mg/dL AST 54 H 42 H (5-31) U/L ALT 113 H 89 H (0-31) U/L Alkaline Phosphatase 108 91 (39-117) U/L Albumin 3.8 3.3 L (3.5-5.0) g/dL Urine 04/19/21 Range/Units 20:41 Urine Color YELLOW Urine Appearance TURBID Urine pH 5.5 (5.0-8.0) Ur Specific [place] 1.025 (1.005-1.025) Urine Protein TRACE (NEG-TRACE) MG/DL Urine Glucose (UA) NEG (NEG) MG/DL All other labs normal. Assessment and Plan (1) Adult failure to thrive: Status: Acute She has advanced Alzheimer's dementia and seemed to have had failure to thrive. Furthermore, clinical impression at this time is aspiration pneumonia as well. She was therefore referred to me for PEG tube placement. I will discuss this with the family. If they agree and the patient is hemodynamically stable for anesthesia, we will proceed with peg tube placement. Procedures Date of Service Date of Service: 04/20/21
--- NOTE | 2021-04-20 16:26 | PM.EVENT ---
Event Note Date of Service: 04/20/21 Event Note: Discussed with son Rupali - he had stated that his father is the HCP proxy, and that all the immediate family members have agreed to go ahead with the PEG tube placement. I had a long discussion with Rupali about that the technique of PEG tube placement I explained the risks including but not limited to bleeding, infections, injury to bowel, loss of airway, seizure risks, tube dislodgement, tube leak, as well as the benefits and alternatives He says he understands The will be available by phone tomorrow prior to the procedure to give verbal consent at [phone]
[2021-04-20 17:55] LABS: Glucose, Whole Blood 154 mg/dL (60-115)
[2021-04-20 23:36] LABS: Glucose, Whole Blood 165 mg/dL (60-115)
[2021-04-21] VITALS (32 sets, daily range): BP systolic 89–129; BP diastolic 53–68; PULSE 56–83; RESP 11–17; TEMP 33–38.6; O2SAT 96–100; BMI 17.5
[2021-04-21] MEDS: Heparin Sodium,Porcine 5,000 UNIT/ML VIAL 5000 UNIT SUBCUT ×3 (00:16→22:12)
[2021-04-21] MEDS: Chlorhexidine Gluc Oral Rinse 15 ML MOUTHWASH BUCCAL ×4 (00:18→22:12)
[2021-04-21] MEDS: vancomycin HCL 750 MG in 0.9 % Sodium Chloride 250 ML 265 MG IV ×2 (00:18→22:12)
[2021-04-21] MEDS: propofoL 1,000 MG/100 ML VIAL 4.91 MG IVCONT (01:34)
[2021-04-21] MEDS: cefEPime HCl 1 GM in 0.9 % Sodium Chloride 50 ML IV ×2 (01:34→12:52)
[2021-04-21] MEDS: Albumin Human 25 % 100 ML IV (01:39)
[2021-04-21] MEDS: Dextrose 5 % 1,000 ML 100 ML IVCONT (04:15)
[2021-04-21] MEDS: Pantoprazole Sodium 40 MG/10 ML VIAL IVPUSH (05:21)
[2021-04-21 05:31] LABS: Glucose, Whole Blood 169 mg/dL (60-115)
[2021-04-21 05:41] LABS: VBG Base Excess 1.1 mmol/L; VBG HCO3 23 mmol/L (22-26); VBG pCO2 28 mmHg; VBG pH 7.51 (7.32-7.43); VBG pO2 44 mmHg
[2021-04-21 06:30] LABS: Basophils Percent Auto 0.2 % (0-2); Mean Corpuscular Hemoglobin 30.1 pg (27.0-33.0); Red Blood Count 3.26 X10*6/uL (4.20-5.50); Red Cell Distribution Width 14.3 % (11.0-16.0); SCAN SMEAR FLAG 1
[2021-04-21 06:31] LABS: Venous Blood Gas Refer to POC result
[2021-04-21 06:32] LABS: Eosinophils Absolute Auto 0.1 X10*3/uL (0.0-0.4); Eosinophils Percent Auto 0.8 % (0-4); Imm Gran Abs Auto 0.06 X10*3/uL (0.00-0.03); Imm Gran Pct Auto 0.5 % (0.0-0.4); Lymphocytes Absolute Auto 1.5 X10*3/uL (1.2-4.9); MANUAL DIFF FLAG SCAN; Mean Corpuscular HGB Conc 31.6 g/dl (31.0-35.0); Mean Corpuscular Volume 95.1 fL (80.0-98.0); Mean Platelet Volume 13.9 fL (9.4-12.3); Monocytes Absolute Auto 0.4 X10*3/uL (0.1-1.2); Monocytes Percent Auto 3.3 % (2-11); Neutrophils Absolute Auto 10.7 x10*3/uL (2.0-8.3); Neutrophils Percent Auto 83.2 % (45-73); Platelet Count 105 X10*3/uL (160-400); White Blood Count 12.9 X10*3/uL (4.8-10.8)
[2021-04-21 06:48] LABS: PLT ABN DIST 1
--- NOTE | 2021-04-21 07:16 | P.CDIC_ITS ---
CDI Concurrent Query Documentation Clarification: PHYSICIAN'S DOCUMENTATION REQUEST Date of Query: 04/21/21 07 Patient Name: Monica Akins Admit Date: 04/19/21 Dear Doctor, A review of the medical record indicates additional documentation may be indicated. Please review below and update the documentation accordingly. Clinical Indicators: Risk Factors/Clinical Indicators/Treatments Wound assessment note 04/20 - Pressure injury Stage II coccyx. Triad, foam dressing. Based on the above, could you please provide, in the Progress Notes, further information regarding the ulcer/wound: * If a pressure ulcer, please also include the stage* of the ulcer: * Stage 1 * Stage 2 * Stage 3 * Stage 4 * Suspected deep tissue injury * Unable to determine *Source: National Pressure Ulcer Advisory Panel (NPUAP) Use of terms such as suspected, likely, concern for, or probable (associated with a specific diagnosis that is being evaluated, monitored, or treated as if it exists) are acceptable and can be coded in the inpatient setting, when documented at the time of discharge. Thank you, Pura Treviño [facility], CDIS Extension: [phone] Please use your independent medical judgment in providing your response. THIS QUERY IS PART OF THE PERMANENT MEDICAL RECORD Provider Response: Other ( unable to determine) Other Diagnosis: unable to determine
[2021-04-21 07:17] LABS: Albumin Level 4.3 g/dL (3.5-5.0); Anion Gap 13 (12-20); Blood Urea Nitrogen 16 mg/dL (9-16); Calcium 8.7 mg/dL (8.4-10.2); Carbon Dioxide 23 mmol/L (22-29); Chloride 114 mmol/L (96-108); Estimated Glomerular Filt Rate > 60; Glucose Random 232 mg/dL (60-115); Magnesium 2.1 mg/dL (1.6-2.6); Phosphorus 1.9 mg/dL (2.7-4.5); Potassium 2.5 mmol/L (3.3-5.1); Sodium 147 mmol/L (135-145)
--- NOTE | 2021-04-21 07:23 | P.CDIC_ITS ---
CDI Concurrent Query Documentation Clarification: PHYSICIAN'S DOCUMENTATION REQUEST Date of Query: 04/21/21 07 Patient Name: Monica Akins Admit Date: 04/19/21 Dear Doctor, A review of the medical record indicates additional documentation may be indicated. Please review below and update the documentation accordingly. Clinical Indicators: Risk Factors/Clinical Indicators/Treatments Wound assessment note 04/20 - Pressure injury Stage II coccyx. Triad, foam dressing. Based on the above, could you please provide, in the Progress Notes, further information regarding the ulcer/wound: * If a pressure ulcer, please also include the stage* of the ulcer: * Stage 1 * Stage 2 * Stage 3 * Stage 4 * Suspected deep tissue injury * Unable to determine *Source: National Pressure Ulcer Advisory Panel (NPUAP) Use of terms such as suspected, likely, concern for, or probable (associated with a specific diagnosis that is being evaluated, monitored, or treated as if it exists) are acceptable and can be coded in the inpatient setting, when documented at the time of discharge. Thank you, Pura Treviño [facility], CDIS Extension: [phone] Please use your independent medical judgment in providing your response. THIS QUERY IS PART OF THE PERMANENT MEDICAL RECORD Provider Response: Other ( unable to determine) Other Diagnosis: unable to determine
[2021-04-21 08:13] LABS: Hemoglobin 9.8 g/dl (12.0-16.0)
[2021-04-21 08:15] LABS: SLIDE REVIEW VERIFIED
[2021-04-21] MEDS: Potassium Chloride/H20 40 MEQ/100 ML PIGGYBACK 50 MEQ IV ×3 (09:08→12:13)
[2021-04-21] MEDS: Potassium Phosphate/NS 15 MMOL/250 ML PLAST..BAG 62.5 MMOL IV ×2 (09:09→13:04)
--- NOTE | 2021-04-21 10:20 | MHC.CLN ---
F/U PT IS MODERATELY MALNOURISHED PT WITH MILDLY DEPLETED SUBCUTANEOUS FAT AND MUSCLE MASS, BMI 16, MULTIPLE PRESSURE INJURIES AND 11% SIGNIFICANT WT LOSS X 7 MONTHS DISCUSSED AT ROUNDS; PT PENDING OR FOR PEG TUBE PLACEMENT TODAY DIET RX: NPO WHEN TF NEEDED; RECOMMEND PROMOTE AT MAX GOAL RATE 50ML/HR WITH 120ML FREE WATER FLUSHES Q SHIFT TO PROVIDE 1200KCALS (1330KCASL WITH SEDATION; 30KCALS/KG), 75G PROTEIN (1.7G/KG), 1367ML TOTAL WATER FROM FORMULA AND FLUSHES START FORMULA AT 10ML/HR AND INCREASE BY 10ML Q 4 HRS UNTIL MAX GOAL IS ACHIEVED PT IS AT POTENTIAL RISK FOR REFEEDING-MONITOR MG, PHOS AND K+ PROTEIN IN TF WILL PROMOTE WOUND HEALING
[2021-04-21 12:23] LABS: Glucose, Whole Blood 144 mg/dL (60-115)
--- NOTE | 2021-04-21 12:27 | MHC.CM.PN ---
Addendum entered by Sheila Mclaughlin 04/21/21 15:34: [facility] is not a [facility] contracted infusion service: referred to [facility]. Will update on formula and rate on 04/22 Addendum entered by Sheila Mclaughlin 04/21/21 12:36: Received email response from [facility] attorneys: Pt's POA with HCP clause is NOT valid as it was not signed by 2 witnesses which is a requirement of a HCP. Updated ICU care team and pre-op RN, Alfa. Original Note: Pt continues in ICU on ventilatory support secondary to aspiration PNA. Family is opting for peg tube placement which will occur today. Possible extubation on 04/22. Referred pt to [facility] for skilled RN visits and feeding teaching to family who will be providing / care for pt, and to [facility] for feeding supplies. Will await OR report to upload and confirmation by above agencies. Son, Carson brought in a copy of pt's POA which contains a possible HCP clause - CM Director sent to [facility] attorneys for validity purposes. Pt is not able to complete a HCP d/t advanced dementia. CM to follow for d/c planning.
--- NOTE | 2021-04-21 13:00 | P.PNCC_ITS ---
Subjective Subjective Date of Service: 04/21/21 Interval History: 76-year-old lady with underlying history of advanced Alzheimer's dementia, nonverbal at baseline, diabetes mellitus, hypertension with recent admission for sepsis with source admitted on 04/20/2021 with acute hypoxic respiratory failure secondary to pulmonary aspiration requiring intubation and ventilatory support further complicated by adult failure to thrive and hypernatremia. Patient is pending PEG placement. No events overnight. Critical Care Time (minutes): 45 Physical Exam Vital Signs: Vital Signs: Last Vital Signs Temp 101.5 F H 04/21/21 12:00 Pulse 80 04/21/21 12:00 Resp 16 04/21/21 12:00 BP 98/54 L 04/21/21 12:00 Pulse Ox 96 04/21/21 12:00 BMI result Body Mass Index 17.5 Const: General: no acute distress and other ( sedated on the vent, arousable with sedation vacation) Eyes: Sclerae: sclerae normal EOM: EOMs intact bilaterally Neck: Neck: Yes no lymphadenopathy, Yes trachea midline and Yes supple Resp: Effort & Inspection: normal respiratory effort and no respiratory distress Auscultation: clear to auscultation bilaterally Cardio: Rate: regular rate Rhythm: regular rhythm Heart sounds: no gallops, no murmurs and no rubs GI: Palpation (GI): Soft to palpation and Other GI palpation findings present ( Nontender) Auscultation: normal bowel sounds Extrem: General: Yes no pedal edema, No clubbing and No cyanosis Objective Data Labs CBC & Chem 7: 04/21/21 05:30 04/21/21 05:30 Labs: Laboratory Results - last 24 hr 04/20/21 04/20/21 04/20/21 12:04 17:38 23:23 WBC RBC Hgb Hct MCV MCH MCHC RDW Plt Count MPV Immature Gran % (Auto) Neut % (Auto) Lymph % (Auto) [place] % (Auto) Eos % (Auto) Baso % (Auto) Lymph # (Auto) [place] # (Auto) Eos # (Auto) Baso # (Auto) Abs Immat Gran (auto) Absolute Neuts (auto) Absolute Nucleated RBC Nucleated RBC % (auto) Smear Tech's Comments VBG pH VBG pCO2 VBG pO2 VBG HCO3 VBG O2 Saturation VBG Base Excess Sodium 155 H Potassium 3.6 Chloride 120 H Carbon Dioxide 23 Anion Gap 16 BUN 36 H Creatinine 0.92 Estim Creat Clear Calc 36.4 Estimated GFR 60 POC Glucose 154 H 165 H Random Glucose 254 H Calcium 8.4 Phosphorus Magnesium Albumin 04/21/21 04/21/21 04/21/21 05:10 05:30 05:30 WBC 12.9 H RBC 3.26 L D Hgb 9.8 L D Hct 31.0 L D MCV 95.1 D MCH 30.1 MCHC 31.6 RDW 14.3 Plt Count 105 L D MPV 13.9 H Immature Gran % (Auto) 0.5 H Neut % (Auto) 83.2 H Lymph % (Auto) 12.0 L [place] % (Auto) 3.3 Eos % (Auto) 0.8 Baso % (Auto) 0.2 Lymph # (Auto) 1.5 [place] # (Auto) 0.4 Eos # (Auto) 0.1 Baso # (Auto) 0.0 Abs Immat Gran (auto) 0.06 H Absolute Neuts (auto) 10.7 H Absolute Nucleated RBC 0.000 Nucleated RBC % (auto) 0.0 Smear Tech's Comments VERIFIED VBG pH VBG pCO2 VBG pO2 VBG HCO3 VBG O2 Saturation VBG Base Excess Sodium 147 H Potassium 2.5 L* D Chloride 114 H Carbon Dioxide 23 Anion Gap 13 BUN 16 D Creatinine 0.75 Estim Creat Clear Calc 49.0 Estimated GFR > 60 POC Glucose 169 H Random Glucose 232 H Calcium 8.7 Phosphorus 1.9 L Magnesium 2.1 Albumin 4.3 D 04/21/21 04/21/21 05:35 12:10 WBC RBC Hgb Hct MCV MCH MCHC RDW Plt Count MPV Immature Gran % (Auto) Neut % (Auto) Lymph % (Auto) [place] % (Auto) Eos % (Auto) Baso % (Auto) Lymph # (Auto) [place] # (Auto) Eos # (Auto) Baso # (Auto) Abs Immat Gran (auto) Absolute Neuts (auto) Absolute Nucleated RBC Nucleated RBC % (auto) Smear Tech's Comments VBG pH 7.51 H VBG pCO2 28 VBG pO2 44 VBG HCO3 23 VBG O2 Saturation 78.0 VBG Base Excess 1.1 Sodium Potassium Chloride Carbon Dioxide Anion Gap BUN Creatinine Estim Creat Clear Calc Estimated GFR POC Glucose 144 H Random Glucose Calcium Phosphorus Magnesium Albumin Microbiology Microbiology Results: Microbiology 04/21/21 07:53 Sputum - Suctioned Gram Stain - Final 04/19/21 22:26 Blood - Venous Blood Culture - Preliminary Gram positive cocci 04/19/21 20:59 Blood - Venous Blood Culture - Preliminary No growth after 24 hours. 04/19/21 Unknown Urine Catheterized - Mccrary Catheter Urine Culture - Preliminary Gram negative [place] Progress Note: A&P Assessment and plan (1) Adult failure to thrive: Status: Acute (2) Diabetes: Status: Acute (3) Alzheimer disease: Status: Acute (4) Pulmonary aspiration: Status: Acute (5) Acute respiratory failure with hypoxia: Status: Acute (6) DOMO (acute kidney injury): Status: Acute (7) UTI (urinary tract infection): Status: Acute Plan Assessment: 76-year-old lady with underlying advanced Alzheimer's dementia admitted with acute hypoxic respiratory failure secondary to pulmonary aspirat ion requiring intubation and pressor support Plan: Neuro: No acute issues. Underlying advanced Alzheimer's disease. Cardiac: Required pressors with intubation and sedation, continue to titrate off as tolerated. Pulmonary: Acute hypoxic respiratory failure secondary to pulmonary aspiration. FiO2 requirements improved significantly. Renal: Acute renal failure and hypernatremia secondary to poor p.o. intake. Non oliguric. Improved with IV fluids. Continue to monitor renal indices and urine output. Endo: No acute issues. GI: Pending PEG lacement. General surgery service care appreciated.. ID: No evidence of septic shock. Pressor requirements are secondary to sedation and hypovolemia. Empiric antibiotics coverage for aspiration pneumonitis. Heme/Onc: No acute issues. Psych: No acute issues. Miscellaneous: Prolonged family discussion held with patient's sounds and who would like to proceed with full support understanding that improvement of swallowing reflex is unlikely and that PEG does not prevent further aspiration. Prophylaxis: heparin ppi Diet: NPO Critical care time spent: 45 minutes Quality Stroke Does the patient have a stroke diagnosis?: No VTE Prior VTE?: No VTE Risk Level:: Medical - moderate - high VTE Device Contraindication: Treatment Not Indicated VTE Drug Contraindication: N/A - Med Ordered
[2021-04-21 13:07] LABS: Anion Gap 11 (12-20); Carbon Dioxide 23 mmol/L (22-29); Chloride 120 mmol/L (96-108); Creatinine Clr Calc Pharmacy 52.4; Estimated Glomerular Filt Rate > 60; Glucose Random 147 mg/dL (60-115); Sodium 149 mmol/L (135-145)
--- NOTE | 2021-04-21 14:22 | P.EN_ITS ---
Event Note Date of Service: 04/21/21 Event Note: Multiple discussions with patient's darryl Milligan and Carson I reviewed with him the technique of PEG tube placement. Explained the risks including but not limited to bleeding, infections, injury to bowel, dislodgement, tube leak, inherent risks of anesthesia reviewed the benefits and alternatives they all want to proceed Informed consent over phone given by Srini with aid of facility manager histology potassium was low earlier - corrected patient had spiked a fever earlier - discussed with retail wireless sales representative; likely due to pneumonia, okay to proceed as per retail wireless sales representative, plan is to hopefully extubate in the ICU after peg tube placement
--- NOTE | 2021-04-21 14:24 | HO.ANESPROP2 ---
HPI - Anesthesia Eval Consult details Narrative: 76 F for PEG tube placemet Hypoxic Respiratory failure s/p intubation secondary to aspiration pneumonia , dementia , failure thrive , hypernatremia , DOMO . Patient is febrile . Discussed with surgeon and anchor tack puller, both in agreement to proceed . [facility] Active Problems Active Problems: All Active Problems (Updated 04/21/21 @ 13:02 by Satya Vilalreal MD) UTI (urinary tract infection) (Acute) Adult failure to thrive (Acute) Diabetes (Acute) Alzheimer disease (Acute) Pulmonary aspiration (Acute) Acute respiratory failure with hypoxia (Acute) Pneumonia (Acute) Sepsis (Acute) Hypernatremia (Acute) DOMO (acute kidney injury) (Acute) Dehydration (Acute) Acute UTI (Acute) Acute hypernatremia (Acute) Near syncope (Acute) Past Medical History Medical History (Updated 04/21/21 @ 13:02 by Satya Villareal MD) Alzheimer disease Diabetes GERD (gastroesophageal reflux disease) HTN (hypertension) Hyperlipidemia Septic shock Family History Family history of problems with anesthesia: No Surgical History History of Problems with Anesthesia: No Social History Social History Household Members: Unknown / Unable to assess Housing: Unknown / Unable to assess Unable to assess alcohol history related to: Unknown Patient Tobacco Use Status: Tobacco use Unknown service: No Current occupational status: disabled Meds Allergies Allergy/AdvReac Type Severity Reaction Status Date / Time Penicillins [PENICILLINS] Allergy Mild UNKNOWN Verified 09/09/20 12:18 morphine [Morphine] Allergy Unknown UNKNOWN Verified 09/09/20 12:18 From Percocet Allergy Unknown UNKNOWN Uncoded 11/28/19 14:56 Active Medications: Current Medications Chlorhexidine Gluconate (Chlorhexidine Gluc Oral Rinse 15 Ml Mouthwash) 15 ml BUCCAL Q8H [facility] Last Admin: 04/21/21 14:20 Dose: 15 ml Documented by: Heparin Sodium (Porcine) (Heparin Sodium,Porcine 5,000 Unit/Ml Vial) 5,000 unit SUBCUT Q8H [facility] Last Admin: 04/21/21 14:21 Dose: Not Given Documented by: Norepinephrine Bitartrate (Levophed) 8 mg in 250 mls @ 0 mls/hr IVCONT .Q0M [facility]; Protocol Last Titration: 04/21/21 08:00 Dose: 0.08 mcg/kg/min, 6.14 mls/hr Documented by: Propofol (Diprivan) 1,000 mg in 100 mls @ 0 mls/hr IVCONT .Q0M [facility]; Protocol Last Titration: 04/21/21 09:00 Dose: 30 mcg/kg/min, 7.36 mls/hr Documented by: Vancomycin HCl 750 mg/ Sodium (Chloride) 265 mls @ 265 mls/hr IV Q24H [facility] Last Infusion: 04/21/21 02:33 Dose: Infused Documented by: Cefepime HCl 1 gm/ Sodium (Chloride) 50 mls @ 100 mls/hr IV Q12H [facility] Last Infusion: 04/21/21 13:31 Dose: Infused Documented by: Potassium Chloride () 40 meq in 100 mls @ 50 mls/hr IV Q2H [facility] Stop: 04/21/21 14:44 Last Infusion: 04/21/21 14:12 Dose: Infused Documented by: Potassium Phosphate (Kphos) 15 mmol in 250 mls @ 62.5 mls/hr IV Q4H [facility] Stop: 04/21/21 16:44 Last Infusion: 04/21/21 14:12 Dose: Infused Documented by: Insulin Human Lispro (Insulin Lispro 100 Unit/Ml 3 Ml Vial) 0 unit SUBCUT Q6H [facility]; Protocol Last Admin: 04/21/21 13:29 Dose: Not Given Documented by: Pantoprazole Sodium (Pantoprazole Sodium 40 Mg/10 Ml Vial) 40 mg IVPUSH DAILY@0630 [facility] Last Admin: 04/21/21 05:21 Dose: 40 mg Documented by: Pharmacy Consult (Consult Rx Vancomycin Dosing) 1 each MISCELLANE DAILY PRN PRN Reason: Consult order Home Medications Medication Instructions Recorded Confirmed Last Taken Type calcium carbonate 500 mg-vitamin 2 tab PO DAILY 02/14/21 04/20/21 04/19/21 History D3 10 mcg (400 unit) tablet (Calcium 500 + D) docusate sodium 100 mg tablet 100 mg PO DAILY 02/14/21 04/20/21 04/19/21 History donepezil 10 mg tablet 10 mg PO BEDTIME 02/14/21 04/20/21 04/19/21 History memantine 10 mg tablet 10 mg PO BID 02/14/21 04/20/21 04/19/21 History metformin 500 mg tablet 500 mg PO DAILY 02/14/21 04/20/21 04/19/21 History omeprazole 20 mg capsule,delayed 20 mg PO DAILY@0630 02/14/21 04/20/21 04/19/21 History release simvastatin 20 mg tablet 20 mg PO BEDTIME 02/14/21 04/20/21 04/19/21 History amlodipine 5 mg tablet 5 mg PO DAILY 04/20/21 04/20/21 04/19/21 History aspirin 81 mg tablet,delayed 81 mg PO DAILY 04/20/21 04/20/21 04/19/21 History release sertraline 50 mg tablet 50 mg PO BEDTIME 04/20/21 04/20/21 04/19/21 History silver sulfadiazine 1 % topical 1 appl TOPICAL DAILY 04/20/21 04/20/21 04/19/21 History cream Exam Exam Date and Time: April 21, 2021 1424 Height,Weight and Vital Signs: Height 5 ft 5 in Weight 47.9 kg Last Vital Signs Temp 101.3 F H 04/21/21 14:00 Pulse 78 04/21/21 14:00 Resp 16 04/21/21 14:00 BP 93/54 L 04/21/21 14:00 Pulse Ox 97 04/21/21 14:00 Pertinent Lab Results Pertinent Lab Results: Laboratory Tests 04/19/21 04/19/21 04/19/21 20:13 20:26 20:26 WBC 16.0 H RBC 6.01 H D Hgb 18.0 H D Hct 61.6 H D MCV 102.5 H MCH 30.0 MCHC 29.2 L RDW 15.1 Plt Count 161 D MPV 13.8 H Immature Gran % (Auto) 0.4 Neut % (Auto) 60.2 Lymph % (Auto) 32.7 [facility] % (Auto) 5.4 Eos % (Auto) 0.8 Baso % (Auto) 0.5 Lymph # (Auto) 5.[address] [facility] # (Auto) 0.9 Eos # (Auto) 0.1 Baso # (Auto) 0.1 Abs Immat Gran (auto) 0.07 H Absolute Neuts (auto) 9.6 H Absolute Nucleated RBC 0.000 Nucleated RBC % (auto) 0.0 Smear Tech's Comments VERIFIED D-Dimer High Sensitivty VBG pH VBG pCO2 VBG pO2 VBG HCO3 VBG O2 Saturation VBG Base Excess Sodium Potassium Chloride Carbon Dioxide Anion Gap BUN Creatinine Estim Creat Clear Calc Estimated GFR POC Glucose 171 H Random Glucose Lactic Acid Lactic Acid F/U @ 2Hr Lactic Acid F/U @ 4Hr Calcium Phosphorus Magnesium Total Bilirubin AST ALT Alkaline Phosphatase Troponin I High Sens 30.8 H B-Natriuretic Peptide TNP Total Protein Albumin TSH Urine Color Urine Appearance Urine pH Ur Specific [place] Urine Protein Urine Glucose (UA) Urine Ketones Urine Blood Urine Nitrite Ur Leukocyte Esterase Urine RBC Urine WBC Ur Squamous Epith Cells Calcium Oxalate Crystal Urine Bacteria COVID-19 (PETROS) COVID-19 [employer] 04/19/21 04/19/21 04/19/21 20:41 21:00 21:00 WBC RBC Hgb Hct MCV MCH MCHC RDW Plt Count MPV Immature Gran % (Auto) Neut % (Auto) Lymph % (Auto) [facility] % (Auto) Eos % (Auto) Baso % (Auto) Lymph # (Auto) [facility] # (Auto) Eos # (Auto) Baso # (Auto) Abs Immat Gran (auto) Absolute Neuts (auto) Absolute Nucleated RBC Nucleated RBC % (auto) Smear Tech's Comments D-Dimer High Sensitivty VBG pH VBG pCO2 VBG pO2 VBG HCO3 VBG O2 Saturation VBG Base Excess Sodium 163 H* Potassium 4.3 Chloride 126 H Carbon Dioxide 26 Anion Gap 15 BUN 50 H D Creatinine 1.22 Estim Creat Clear Calc 25.7 Estimated GFR 43 POC Glucose Random Glucose 195 H Lactic Acid Lactic Acid F/U @ 2Hr Lactic Acid F/U @ 4Hr Calcium 9.6 Phosphorus Magnesium Total Bilirubin 0.9 AST 54 H ALT 113 H Alkaline Phosphatase 108 Troponin I High Sens B-Natriuretic Peptide Total Protein 7.8 Albumin 3.8 TSH 3.65 Urine Color YELLOW Urine Appearance TURBID Urine pH 5.5 Ur Specific [place] 1.025 Urine Protein TRACE Urine Glucose (UA) NEG Urine Ketones NEG Urine Blood TRACE Urine Nitrite POS H Ur Leukocyte Esterase 3+ H Urine RBC 1-4 Urine WBC 10-14 H Ur Squamous Epith Cells 1+ Calcium Oxalate Crystal 1+ Urine Bacteria 3+ COVID-19 (PETROS) COVID-19 [employer] 04/19/21 04/19/21 04/19/21 21:00 21:02 22:27 WBC RBC Hgb Hct MCV MCH MCHC RDW Plt Count MPV Immature Gran % (Auto) Neut % (Auto) Lymph % (Auto) [facility] % (Auto) Eos % (Auto) Baso % (Auto) Lymph # (Auto) [facility] # (Auto) Eos # (Auto) Baso # (Auto) Abs Immat Gran (auto) Absolute Neuts (auto) Absolute Nucleated RBC Nucleated RBC % (auto) Smear Tech's Comments D-Dimer High Sensitivty 598 VBG pH VBG pCO2 VBG pO2 VBG HCO3 VBG O2 Saturation VBG Base Excess Sodium Potassium Chloride Carbon Dioxide Anion Gap BUN Creatinine Estim Creat Clear Calc Estimated GFR POC Glucose Random Glucose Lactic Acid Lactic Acid F/U @ 2Hr Lactic Acid F/U @ 4Hr Calcium Phosphorus Magnesium Total Bilirubin AST ALT Alkaline Phosphatase Troponin I High Sens B-Natriuretic Peptide 70 Total Protein Albumin TSH Urine Color Urine Appearance Urine pH Ur Specific [place] Urine Protein Urine Glucose (UA) Urine Ketones Urine Blood Urine Nitrite Ur Leukocyte Esterase Urine RBC Urine WBC Ur Squamous Epith Cells Calcium Oxalate Crystal Urine Bacteria COVID-19 (PETROS) Negative COVID-19 Clin Com See Note 04/19/21 04/20/21 04/20/21 22:27 00:26 00:37 WBC RBC Hgb Hct MCV MCH MCHC RDW Plt Count MPV Immature Gran % (Auto) Neut % (Auto) Lymph % (Auto) [facility] % (Auto) Eos % (Auto) Baso % (Auto) Lymph # (Auto) [facility] # (Auto) Eos # (Auto) Baso # (Auto) Abs Immat Gran (auto) Absolute Neuts (auto) Absolute Nucleated RBC Nucleated RBC % (auto) Smear Tech's Comments D-Dimer High Sensitivty VBG pH 7.34 VBG pCO2 40 VBG pO2 44 VBG HCO3 22 VBG O2 Saturation 67.0 VBG Base Excess -2.8 Sodium Potassium Chloride Carbon Dioxide Anion Gap BUN Creatinine Estim Creat Clear Calc Estimated GFR POC Glucose Random Glucose Lactic Acid 2.5 H* Lactic Acid F/U @ 2Hr 2.2 H* Lactic Acid F/U @ 4Hr Calcium Phosphorus Magnesium Total Bilirubin AST ALT Alkaline Phosphatase Troponin I High Sens B-Natriuretic Peptide Total Protein Albumin TSH Urine Color Urine Appearance Urine pH Ur Specific [place] Urine Protein Urine Glucose (UA) Urine Ketones Urine Blood Urine Nitrite Ur Leukocyte Esterase Urine RBC Urine WBC Ur Squamous Epith Cells Calcium Oxalate Crystal Urine Bacteria COVID-19 (PETROS) COVID-19 Clin Com 04/20/21 04/20/21 04/20/21 01:23 02:56 05:28 WBC RBC Hgb Hct MCV MCH MCHC RDW Plt Count MPV Immature Gran % (Auto) Neut % (Auto) Lymph % (Auto) [facility] % (Auto) Eos % (Auto) Baso % (Auto) Lymph # (Auto) [facility] # (Auto) Eos # (Auto) Baso # (Auto) Abs Immat Gran (auto) Absolute Neuts (auto) Absolute Nucleated RBC Nucleated RBC % (auto) Smear Tech's Comments D-Dimer High Sensitivty VBG pH VBG pCO2 VBG pO2 VBG HCO3 VBG O2 Saturation VBG Base Excess Sodium 156 H Potassium 3.4 D Chloride 121 H Carbon Dioxide 25 Anion Gap 13 BUN 44 H Creatinine 1.09 Estim Creat Clear Calc 30.7 Estimated GFR 49 POC Glucose 131 H Random Glucose 381 H* Lactic Acid Lactic Acid F/U @ 2Hr Lactic Acid F/U @ 4Hr 2.5 H* Calcium 8.3 L D Phosphorus 2.9 Magnesium 2.2 Total Bilirubin 1.0 AST 42 H ALT 89 H Alkaline Phosphatase 91 Troponin I High Sens B-Natriuretic Peptide Total Protein 6.4 L Albumin 3.3 L TSH Urine Color Urine Appearance Urine pH Ur Specific [place] Urine Protein Urine Glucose (UA) Urine Ketones Urine Blood Urine Nitrite Ur Leukocyte Esterase Urine RBC Urine WBC Ur Squamous Epith Cells Calcium Oxalate Crystal Urine Bacteria COVID-19 (PETROS) COVID-19 Clin Com 04/20/21 04/20/21 04/20/21 05:28 05:32 05:46 WBC 16.7 H RBC 4.68 D Hgb 13.9 D Hct 46.9 D MCV 100.2 H MCH 29.7 MCHC 29.6 L RDW 14.7 Plt Count 161 MPV 13.3 H Immature Gran % (Auto) 0.4 Neut % (Auto) 86.2 H Lymph % (Auto) 9.[address] [facility] % (Auto) 3.5 Eos % (Auto) 0.2 Baso % (Auto) 0.2 Lymph # (Auto) 1.6 [facility] # (Auto) 0.6 Eos # (Auto) 0.0 Baso # (Auto) 0.0 Abs Immat Gran (auto) 0.07 H Absolute Neuts (auto) 14.3 H Absolute Nucleated RBC 0.000 Nucleated RBC % (auto) 0.0 Smear Tech's Comments D-Dimer High Sensitivty VBG pH 7.40 VBG pCO2 36 VBG pO2 42 VBG HCO3 23 VBG O2 Saturation 68.0 VBG Base Excess -1.0 Sodium Potassium Chloride Carbon Dioxide Anion Gap BUN Creatinine Estim Creat Clear Calc Estimated GFR POC Glucose 252 H Random Glucose Lactic Acid Lactic Acid F/U @ 2Hr Lactic Acid F/U @ 4Hr Calcium Phosphorus Magnesium Total Bilirubin AST ALT Alkaline Phosphatase Troponin I High Sens B-Natriuretic Peptide Total Protein Albumin TSH Urine Color Urine Appearance Urine pH Ur Specific [place] Urine Protein Urine Glucose (UA) Urine Ketones Urine Blood Urine Nitrite Ur Leukocyte Esterase Urine RBC Urine WBC Ur Squamous Epith Cells Calcium Oxalate Crystal Urine Bacteria COVID-19 (PETROS) COVIDAmimon 04/20/21 04/20/21 04/20/21 12:04 12:04 17:38 WBC RBC Hgb Hct MCV MCH MCHC RDW Plt Count MPV Immature Gran % (Auto) Neut % (Auto) Lymph % (Auto) [facility] % (Auto) Eos % (Auto) Baso % (Auto) Lymph # (Auto) [facility] # (Auto) Eos # (Auto) Baso # (Auto) Abs Immat Gran (auto) Absolute Neuts (auto) Absolute Nucleated RBC Nucleated RBC % (auto) Smear Tech's Comments D-Dimer High Sensitivty VBG pH VBG pCO2 VBG pO2 VBG HCO3 VBG O2 Saturation VBG Base Excess Sodium 155 H Potassium 3.6 Chloride 120 H Carbon Dioxide 23 Anion Gap 16 BUN 36 H Creatinine 0.92 Estim Creat Clear Calc 36.4 Estimated GFR 60 POC Glucose 209 H 154 H Random Glucose 254 H Lactic Acid Lactic Acid F/U @ 2Hr Lactic Acid F/U @ 4Hr Calcium 8.4 Phosphorus Magnesium Total Bilirubin AST ALT Alkaline Phosphatase Troponin I High Sens B-Natriuretic Peptide Total Protein Albumin TSH Urine Color Urine Appearance Urine pH Ur Specific [place] Urine Protein Urine Glucose (UA) Urine Ketones Urine Blood Urine Nitrite Ur Leukocyte Esterase Urine RBC Urine WBC Ur Squamous Epith Cells Calcium Oxalate Crystal Urine Bacteria COVID-19 (PETROS) COVID-19 [employer] 04/20/21 04/21/21 04/21/21 23:23 05:10 05:30 WBC RBC Hgb Hct MCV MCH MCHC RDW Plt Count MPV Immature Gran % (Auto) Neut % (Auto) Lymph % (Auto) [facility] % (Auto) Eos % (Auto) Baso % (Auto) Lymph # (Auto) [facility] # (Auto) Eos # (Auto) Baso # (Auto) Abs Immat Gran (auto) Absolute Neuts (auto) Absolute Nucleated RBC Nucleated RBC % (auto) Smear Tech's Comments D-Dimer High Sensitivty VBG pH VBG pCO2 VBG pO2 VBG HCO3 VBG O2 Saturation VBG Base Excess Sodium 147 H Potassium 2.5 L* D Chloride 114 H Carbon Dioxide 23 Anion Gap 13 BUN 16 D Creatinine 0.75 Estim Creat Clear Calc 49.0 Estimated GFR > 60 POC Glucose 165 H 169 H Random Glucose 232 H Lactic Acid Lactic Acid F/U @ 2Hr Lactic Acid F/U @ 4Hr Calcium 8.7 Phosphorus 1.9 L Magnesium 2.1 Total Bilirubin AST ALT Alkaline Phosphatase Troponin I High Sens B-Natriuretic Peptide Total Protein Albumin 4.3 D TSH Urine Color Urine Appearance Urine pH Ur Specific [place] Urine Protein Urine Glucose (UA) Urine Ketones Urine Blood Urine Nitrite Ur Leukocyte Esterase Urine RBC Urine WBC Ur Squamous Epith Cells Calcium Oxalate Crystal Urine Bacteria COVID-19 (PETROS) COVID-19 Clin Com 04/21/21 04/21/21 04/21/21 05:30 05:35 11:38 WBC 12.9 H RBC 3.26 L D Hgb 9.8 L D Hct 31.0 L D MCV 95.1 D MCH 30.1 MCHC 31.6 RDW 14.3 Plt Count 105 L D MPV 13.9 H Immature Gran % (Auto) 0.5 H Neut % (Auto) 83.2 H Lymph % (Auto) 12.[address] [facility] % (Auto) 3.3 Eos % (Auto) 0.8 Baso % (Auto) 0.2 Lymph # (Auto) 1.5 [facility] # (Auto) 0.4 Eos # (Auto) 0.1 Baso # (Auto) 0.0 Abs Immat Gran (auto) 0.06 H Absolute Neuts (auto) 10.7 H Absolute Nucleated RBC 0.000 Nucleated RBC % (auto) 0.0 Smear Tech's Comments VERIFIED D-Dimer High Sensitivty VBG pH 7.51 H VBG pCO2 28 VBG pO2 44 VBG HCO3 23 VBG O2 Saturation 78.0 VBG Base Excess 1.1 Sodium 149 H Potassium 4.5 D Chloride 120 H Carbon Dioxide 23 Anion Gap 11 L BUN Creatinine 0.70 Estim Creat Clear Calc 52.4 Estimated GFR > 60 POC Glucose Random Glucose 147 H Lactic Acid Lactic Acid F/U @ 2Hr Lactic Acid F/U @ 4Hr Calcium Phosphorus Magnesium Total Bilirubin AST ALT Alkaline Phosphatase Troponin I High Sens B-Natriuretic Peptide Total Protein Albumin TSH Urine Color Urine Appearance Urine pH Ur Specific [place] Urine Protein Urine Glucose (UA) Urine Ketones Urine Blood Urine Nitrite Ur Leukocyte Esterase Urine RBC Urine WBC Ur Squamous Epith Cells Calcium Oxalate Crystal Urine Bacteria COVID-19 (PETROS) COVID-19 Clin Com 04/21/21 12:10 WBC RBC Hgb Hct MCV MCH MCHC RDW Plt Count MPV Immature Gran % (Auto) Neut % (Auto) Lymph % (Auto) [facility] % (Auto) Eos % (Auto) Baso % (Auto) Lymph # (Auto) [facility] # (Auto) Eos # (Auto) Baso # (Auto) Abs Immat Gran (auto) Absolute Neuts (auto) Absolute Nucleated RBC Nucleated RBC % (auto) Smear Tech's Comments D-Dimer High Sensitivty VBG pH VBG pCO2 VBG pO2 VBG HCO3 VBG O2 Saturation VBG Base Excess Sodium Potassium Chloride Carbon Dioxide Anion Gap BUN Creatinine Estim Creat Clear Calc Estimated GFR POC Glucose 144 H Random Glucose Lactic Acid Lactic Acid F/U @ 2Hr Lactic Acid F/U @ 4Hr Calcium Phosphorus Magnesium Total Bilirubin AST ALT Alkaline Phosphatase Troponin I High Sens B-Natriuretic Peptide Total Protein Albumin TSH Urine Color Urine Appearance Urine pH Ur Specific [place] Urine Protein Urine Glucose (UA) Urine Ketones Urine Blood Urine Nitrite Ur Leukocyte Esterase Urine RBC Urine WBC Ur Squamous Epith Cells Calcium Oxalate Crystal Urine Bacteria COVID-19 (PETROS) COVID-19 Clin Com Narrative Narrative: Airway exam could not be performed as ETT in situ and patient sedated Airway Heart: rrr Lungs: mechanical breath sounds bilaterally Assessment and Plan Assessment Anesthesia Assessment: Anesthesia Plan Discussed (with spouse ) and Chart Reviewed Final Anesthetic Review Family History of Problems with Anesthesia: No History of Problems with Anesthesia: No NPO: Yes ASA Class: IV Final Preanesthetic Review: Meds/Allgs Chart Reviewed, Consent Obtained/Reviewed (with spouse ) and Anes Risks/Benef Reviewed Patient Risk: High Procedure Risk: Intermediate Anesthetic Plan Anesthetic Plan: GA Disposition: Inp. Admit - ICU
--- NOTE | 2021-04-21 14:43 | PC.NURSE ---
Addendum entered by Savana Mendes RN 04/21/21 15:12: BACK FROM OR. Original Note: OFF UNIT TO OR.
[2021-04-21] MEDS: ceFAZolin Sodium/Dextrose,Iso 2 GM/50 ML PIGGYBACK IV (15:13)
--- NOTE | 2021-04-21 15:20 | PM.OP ---
Brief Operative Note Date of Service: 04/21/21 <MYKE Zepeda Last Filed: 04/21/21 15:21> Pre-op diagnosis: failure to thrive <Martha Brown PA-C - Last Filed: 04/21/21 15:21> Post-op diagnosis: same <Martha Brown PA-C - Last Filed: 04/21/21 15:21> Procedure: Percutaneous endoscopic gastrostomy tube placement <Martha Brown PA-C - Last Filed: 04/21/21 15:21> Implants: PEG tube 20fr <Martha Brown PA-C - Last Filed: 04/21/21 15:21> Surgeon: DWAYNE HUFF MD <Martha Brown PA-C - Last Filed: 04/21/21 15:21> Anesthesia: GETA <Martha Brown PA-C - Last Filed: 04/21/21 15:21> Was an Contract Accountant used for this Procedure?: Yes <Martha Brown PA-C - Last Filed: 04/21/21 15:21> No <Dwayne Huff MD - Last Filed: 04/21/21 16:14> Contract Accountant: Martha Brown <MYKE Zepeda Last Filed: 04/21/21 15:21> Estimated blood loss (mL): 2 <MYKE Zepeda Last Filed: 04/21/21 15:21> Pathology: none sent <MYKE Zepeda Last Filed: 04/21/21 15:21> Condition: stable <MYKE Zepeda Last Filed: 04/21/21 15:21> Disposition: ICU <MYKE Zepeda Last Filed: 04/21/21 15:21>
[2021-04-21] MEDS: propofoL 1,000 MG/100 ML VIAL 7.36 MG IVCONT (15:50)
[2021-04-21 16:05] LABS: Blood Urea Nitrogen 13 mg/dL (9-16); Calcium 8.6 mg/dL (8.4-10.2); Potassium 4.5 mmol/L (3.3-5.1)
--- NOTE | 2021-04-21 16:19 | PM.EVENT ---
Event Note Date of Service: 04/21/21 Event Note: Underwent PEG tube placement earlier Uneventful She tolerated procedure well Abdomen soft No problems postoperatively at this time Peg tube care Okay to start using PEG tube tomorrow Gilson Butler updated by phone
[2021-04-21 18:07] LABS: Glucose, Whole Blood 125 mg/dL (60-115)
[2021-04-21 23:42] LABS: Glucose, Whole Blood 152 mg/dL (60-115)
[2021-04-22] VITALS (32 sets, daily range): BP systolic 85–147; BP diastolic 51–75; PULSE 66–99; RESP 12–27; TEMP 34–38.1; O2SAT 93–100; BMI 17.4
[2021-04-22] MEDS: cefEPime HCl 1 GM in 0.9 % Sodium Chloride 50 ML IV (00:31)
[2021-04-22] MEDS: propofoL 1,000 MG/100 ML VIAL 7.36 MG IVCONT (02:08)
[2021-04-22] MEDS: Pantoprazole Sodium 40 MG/10 ML VIAL IVPUSH (05:28)
[2021-04-22 05:40] LABS: VBG Base Excess -2.6 mmol/L; VBG HCO3 19 mmol/L (22-26); VBG pCO2 26 mmHg; VBG pH 7.47 (7.32-7.43); VBG pO2 42 mmHg
[2021-04-22 05:41] LABS: Venous Blood Gas Refer to POC result
[2021-04-22 06:09] LABS: Glucose, Whole Blood 113 mg/dL (60-115)
[2021-04-22 06:12] LABS: Mean Corpuscular Hemoglobin 29.8 pg (27.0-33.0); PLT ABN DIST 1; Platelet Count 108 X10*3/uL (160-400); Red Cell Distribution Width 14.6 % (11.0-16.0); SCAN SMEAR FLAG 1
[2021-04-22 06:13] LABS: Basophils Percent Auto 0.3 % (0-2); Eosinophils Absolute Auto 0.2 X10*3/uL (0.0-0.4); Eosinophils Percent Auto 1.7 % (0-4); Hematocrit 31.5 % (37.0-47.0); Hemoglobin 9.8 g/dl (12.0-16.0); Imm Gran Abs Auto 0.05 X10*3/uL (0.00-0.03); Imm Gran Pct Auto 0.4 % (0.0-0.4); Lymphocytes Absolute Auto 1.2 X10*3/uL (1.2-4.9); Lymphocytes Percent Auto 10.6 % (20-40); Mean Corpuscular HGB Conc 31.1 g/dl (31.0-35.0); Mean Corpuscular Volume 95.7 fL (80.0-98.0); Mean Platelet Volume 14.1 fL (9.4-12.3); Monocytes Absolute Auto 0.4 X10*3/uL (0.1-1.2); Monocytes Percent Auto 3.1 % (2-11); Neutrophils Absolute Auto 9.9 x10*3/uL (2.0-8.3); Neutrophils Percent Auto 83.9 % (45-73); Red Blood Count 3.29 X10*6/uL (4.20-5.50); White Blood Count 11.8 X10*3/uL (4.8-10.8)
[2021-04-22 06:26] LABS: MANUAL DIFF FLAG NO
--- NOTE | 2021-04-22 06:46 | HO.POSTANES ---
Post Anesthesia Evaluation Post Anesthesia Evaluation Vital Signs: Vital Signs Temp Pulse Resp BP Pulse Ox 04/22/21 06:35 75 85/51 L 04/22/21 06:00 100.2 F 80 16 101/64 100 04/22/21 05:00 100.2 F 83 16 104/63 100 04/22/21 04:38 80 121/66 04/22/21 04:00 100.4 F 79 16 114/63 100 04/22/21 03:00 100.2 F 80 16 108/64 100 04/22/21 02:13 81 116/63 04/22/21 02:00 100.0 F 73 16 116/63 100 04/22/21 01:00 100.2 F 74 16 104/57 L 100 04/22/21 00:00 100.4 F 74 16 117/66 97 04/21/21 23:00 100.6 F H 83 16 119/68 99 04/21/21 22:00 100.8 F H 80 16 121/62 100 04/21/21 20:55 100.4 F 76 16 91/53 L 100 04/21/21 20:00 100.9 F H 75 16 109/60 100 04/21/21 19:22 110/58 L 04/21/21 19:00 99.7 F 72 14 114/58 L 99 Anesthesia: General Endotracheal-GETA (patient came to us and returned back to ICU intubated secondary to previous pulmonary aspiration) Mental Status: Sedated (propofol sedation) Pain Control: Satisfactory Nausea/Vomiting: None Hydration: Adequate Anesthesia-Related Issues: No Anes. Related Issues
[2021-04-22 07:01] LABS: Albumin Level 3.6 g/dL (3.5-5.0); Anion Gap 11 (12-20); Blood Urea Nitrogen 13 mg/dL (9-16); Calcium 8.8 mg/dL (8.4-10.2); Carbon Dioxide 21 mmol/L (22-29); Chloride 121 mmol/L (96-108); Estimated Glomerular Filt Rate > 60; Glucose Random 125 mg/dL (60-115); Magnesium 2.2 mg/dL (1.6-2.6); Potassium 3.4 mmol/L (3.3-5.1); Sodium 150 mmol/L (135-145)
[2021-04-22] MEDS: Chlorhexidine Gluc Oral Rinse 15 ML MOUTHWASH BUCCAL (07:30)
[2021-04-22] MEDS: Heparin Sodium,Porcine 5,000 UNIT/ML VIAL 5000 UNIT SUBCUT ×3 (07:30→23:16)
[2021-04-22] MEDS: Dextrose 5 % 1,000 ML 100 ML IVCONT (08:34)
[2021-04-22] MEDS: Potassium Phosphate/NS 15 MMOL/250 ML PLAST..BAG 62.5 MMOL IV ×2 (08:34→12:18)
--- NOTE | 2021-04-22 08:50 | P.PNGS_ITS ---
Subjective Subjective Date of Service: 04/22/21 Interval history: No events postop overnight Remains intubated Physical Exam Vital Signs: Vital Signs: Last Vital Signs Temp 100.2 F 04/22/21 08:45 Pulse 73 04/22/21 08:45 Resp 16 04/22/21 08:45 BP 112/63 04/22/21 08:45 Pulse Ox 100 04/22/21 08:45 BMI result Body Mass Index 17.4 Const: Other: On ventilator, intubated Resp: Other: On ventilator GI: Other: Peg tube in place, dressings dry Inspection: No distended Palpation (GI): Soft to palpation, not firm and no guarding Objective Data Active Medications Chlorhexidine Gluconate (Chlorhexidine Gluc Oral Rinse 15 Ml Mouthwash) 15 ml BUCCAL Q8H ADII[facility] Last Admin: 04/22/21 07:30 Dose: 15 ml Documented by: SUNNY Heparin Sodium (Porcine) (Heparin Sodium,Porcine 5,000 Unit/Ml Vial) 5,000 unit SUBCUT Q8H ADIL[facility] Last Admin: 04/22/21 07:30 Dose: 5,000 unit Documented by: SUNNY Norepinephrine Bitartrate (Levophed) 8 mg in 250 mls @ 0 mls/hr IVCONT .Q0M [facility]; Protocol Last Titration: 04/22/21 06:35 Dose: 0.06 mcg/kg/min, 4.6 mls/hr Documented by: SUNG Propofol (Diprivan) 1,000 mg in 100 mls @ 0 mls/hr IVCONT .Q0M ADIL[facility]; Protocol Last Titration: 04/22/21 08:31 Dose: 0 mcg/kg/min, 0 mls/hr Documented by: SUNNY Vancomycin HCl 750 mg/ Sodium (Chloride) 265 mls @ 265 mls/hr IV Q24H ADIL[facility] Last Infusion: 04/21/21 23:23 Dose: 0 mls/hr Documented by: SUNG Cefepime HCl 1 gm/ Sodium (Chloride) 50 mls @ 100 mls/hr IV Q12H [facility] Last Infusion: 04/22/21 01:18 Dose: 0 mls/hr Documented by: SUNG Potassium Phosphate (Kphos) 15 mmol in 250 mls @ 62.5 mls/hr IV Q4H [facility] Stop: 04/22/21 16:14 Last Admin: 04/22/21 08:34 Dose: 62.5 mls/hr Documented by: SUNNY Dextrose (D5w) 1,000 mls @ 100 mls/hr IVCONT .Q10H [facility] Stop: 04/22/21 18:14 Last Admin: 04/22/21 08:34 Dose: 100 mls/hr Documented by: SUNNY Insulin Human Lispro (Insulin Lispro 100 Unit/Ml 3 Ml Vial) 0 unit SUBCUT Q6H [facility]; Protocol Last Admin: 04/22/21 05:44 Dose: Not Given Documented by: SUNG Non-Admin Reason: No Insulin Coverage Pantoprazole Sodium (Pantoprazole Sodium 40 Mg/10 Ml Vial) 40 mg IVPUSH DAILY@0630 [facility] Last Admin: 04/22/21 05:28 Dose: 40 mg Documented by: SUNG Pharmacy Consult (Consult Rx Vancomycin Dosing) 1 each MISCELLANE DAILY PRN PRN Reason: Consult order Labs CBC & Chem 7: 04/22/21 05:33 04/22/21 05:33 Labs: Laboratory Results - last 24 hr 04/21/21 04/21/21 04/21/21 11:38 12:10 18:01 MCV MCH MCHC RDW Plt Count MPV Immature Gran % (Auto) Neut % (Auto) Lymph % (Auto) [place] % (Auto) Eos % (Auto) Baso % (Auto) Lymph # (Auto) [place] # (Auto) Eos # (Auto) Baso # (Auto) Abs Immat Gran (auto) Absolute Neuts (auto) Absolute Nucleated RBC Nucleated RBC % (auto) VBG pH VBG pCO2 VBG pO2 VBG HCO3 VBG O2 Saturation VBG Base Excess Anion Gap 11 L Estim Creat Clear Calc 52.4 Estimated GFR > 60 POC Glucose 144 H 125 H Random Glucose 147 H Calcium 8.6 Phosphorus Magnesium Albumin 04/21/21 04/22/21 04/22/21 23:39 05:33 05:33 MCV 95.7 MCH 29.8 MCHC 31.1 RDW 14.6 Plt Count 108 L MPV 14.1 H Immature Gran % (Auto) 0.4 Neut % (Auto) 83.9 H Lymph % (Auto) 10.6 L [place] % (Auto) 3.1 Eos % (Auto) 1.7 Baso % (Auto) 0.3 Lymph # (Auto) 1.2 [place] # (Auto) 0.4 Eos # (Auto) 0.2 Baso # (Auto) 0.0 Abs Immat Gran (auto) 0.05 H Absolute Neuts (auto) 9.9 H Absolute Nucleated RBC 0.000 Nucleated RBC % (auto) 0.0 VBG pH VBG pCO2 VBG pO2 VBG HCO3 VBG O2 Saturation VBG Base Excess Anion Gap 11 L Estim Creat Clear Calc 56.0 Estimated GFR > 60 POC Glucose 152 H Random Glucose 125 H Calcium 8.8 Phosphorus 2.0 L Magnesium 2.2 Albumin 3.6 04/22/21 04/22/21 05:34 05:40 MCV MCH MCHC RDW Plt Count MPV Immature Gran % (Auto) Neut % (Auto) Lymph % (Auto) [place] % (Auto) Eos % (Auto) Baso % (Auto) Lymph # (Auto) [place] # (Auto) Eos # (Auto) Baso # (Auto) Abs Immat Gran (auto) Absolute Neuts (auto) Absolute Nucleated RBC Nucleated RBC % (auto) VBG pH 7.47 H VBG pCO2 26 VBG pO2 42 VBG HCO3 19 L VBG O2 Saturation 74.0 VBG Base Excess -2.6 Anion Gap Estim Creat Clear Calc Estimated GFR POC Glucose 113 Random Glucose Calcium Phosphorus Magnesium Albumin Microbiology Microbiology Results: Microbiology 04/19/21 Unknown Urine Culture - Final Urine Catheterized - Mccrary Catheter Escherichia coli 04/19/21 22:26 Blood Culture - Preliminary Blood - Venous Gram positive cocci 04/19/21 20:59 Blood Culture - Preliminary Blood - Venous No growth after 48 hours. 04/21/21 07:53 Gram Stain - Final Sputum - Suctioned Procedures Date of Service Date of Service: 04/22/21 Progress Note: A&P Assessment and plan (1) Adult failure to thrive: Status: Acute Assessment and Plan: Status post PEG placement Seems to be doing well postop Okay to start feeds today at low rate advance as tolerated Keep external bolster on PEG snug on skin Rest of care as per ICU Fall Risk Details Current Medications: Current Medications Chlorhexidine Gluconate (Chlorhexidine Gluc Oral Rinse 15 Ml Mouthwash) 15 ml BUCCAL Q8H [facility] Last Admin: 04/22/21 07:30 Dose: 15 ml Documented by: Heparin Sodium (Porcine) (Heparin Sodium,Porcine 5,000 Unit/Ml Vial) 5,000 unit SUBCUT Q8H [facility] Last Admin: 04/22/21 07:30 Dose: 5,000 unit Documented by: Norepinephrine Bitartrate (Levophed) 8 mg in 250 mls @ 0 mls/hr IVCONT .Q0M [facility]; Protocol Last Titration: 04/22/21 06:35 Dose: 0.06 mcg/kg/min, 4.6 mls/hr Documented by: Propofol (Diprivan) 1,000 mg in 100 mls @ 0 mls/hr IVCONT .Q0M [facility]; Protocol Last Titration: 04/22/21 08:31 Dose: 0 mcg/kg/min, 0 mls/hr Documented by: Vancomycin HCl 750 mg/ Sodium (Chloride) 265 mls @ 265 mls/hr IV Q24H [facility] Last Infusion: 04/21/21 23:23 Dose: Infused Documented by: Cefepime HCl 1 gm/ Sodium (Chloride) 50 mls @ 100 mls/hr IV Q12H [facility] Last Infusion: 04/22/21 01:18 Dose: Infused Documented by: Potassium Phosphate (Kphos) 15 mmol in 250 mls @ 62.5 mls/hr IV Q4H [facility] Stop: 04/22/21 16:14 Last Admin: 04/22/21 08:34 Dose: 62.5 mls/hr Documented by: Dextrose (D5w) 1,000 mls @ 100 mls/hr IVCONT .Q10H [facility] Stop: 04/22/21 18:14 Last Admin: 04/22/21 08:34 Dose: 100 mls/hr Documented by: Insulin Human Lispro (Insulin Lispro 100 Unit/Ml 3 Ml Vial) 0 unit SUBCUT Q6H [facility]; Protocol Last Admin: 04/22/21 05:44 Dose: Not Given Documented by: Pantoprazole Sodium (Pantoprazole Sodium 40 Mg/10 Ml Vial) 40 mg IVPUSH DAILY@0630 [facility] Last Admin: 04/22/21 05:28 Dose: 40 mg Documented by: Pharmacy Consult (Consult Rx Vancomycin Dosing) 1 each MISCELLANE DAILY PRN PRN Reason: Consult order Time Spent With Patient Time: Total time spent is greater than 50% in coordination of care (as documented) at patient's floor/unit and/or counseling patient: Time with patient: 15 - 24 minutes Quality Stroke Does the patient have a stroke diagnosis?: No VTE Prior VTE?: No VTE Risk Level:: Medical - moderate - high VTE Device Contraindication: Treatment Not Indicated VTE Drug Contraindication: N/A - Med Ordered
--- NOTE | 2021-04-22 10:31 | P.OP_ITS ---
Operative Note Operative Note Date of Service: 04/21/21 Narrative: preop diagnosis: Feel to thrive, aspiration pneumonia, advanced dementia Postop diagnosis: The same Procedure: Peg tube placement Surgeon: Chandana Huff MD family readiness support assistant: MAUREEN Brown Patient is 76-year-old female with advanced dementia who is bed-bound, admitted because of her mental status with likely an aspiration pneumonia. She has had failure to thrive as well. In view of this, she was referred to me by the reconstructive surgeon for PEG tube placement. I had multiple discussions with the family about the planned procedure. They understood the technique as well as the risks, benefits, and alternatives. The Srini had given consent Patient was brought to the operating room and placed in a reclining position. She already had and endotracheal tube some respiratory failure. She was under anesthesia. A full surgical time-out was done. I then proceeded to insert the endoscope through the oral orifice all the way to the oropharynx. The vocal cords were visualized. The esophageal slit and the NG tube were seen. I followed the NG tube through the esophageal slit all the way to the entire length of the esophagus into the stomach. The stomach was insufflated to distend this. Transillumination on the left upper quadrant was easily seen. We marked this area as the site of PEG placement. Indentation on the anterior wall the stomach was also easily seen when the left upper quadrant was palpated with a finger. This area was therefore infiltrated after prepping and draping. A small stab wound was placed using an blade 11. The for needle with the introducer sees was inserted and this was seen likely in the stomach lumen. Removed the needle and inserted the guidewire to the cannula. The guidewire was grasped with a snare and was pulled out through the mouth. The PEG tube was attached to this guidewire. The guidewire was pulled out from the abdominal wall dragging the tube with it until this was snug. I reinserted the endoscope all the way to the stomach to visualize this. The internal bolster was seen and was in good position. There was no bleeding noted I therefore proceeded to withdraw the scope completely The external bolster was then made snug on the abdominal wall The patient tolerated procedure well. There were no complications noted. There was minimal blood loss. The patient was transferred to the ICU with stable vital signs.
[2021-04-22] MEDS: cefTRIAXone sodium 1 GM in 0.9 % Sodium Chloride 50 ML IV (10:57)
[2021-04-22 11:26] LABS: Glucose, Whole Blood 111 mg/dL (60-115)
--- NOTE | 2021-04-22 11:49 | MHC.CM.PN ---
Pt had a successful PEG placement and will begin TF today. Also, plans are to extubate pt today. All requested documents given to [facility] liasion, Kavitha who is in house - she will update the referral in anticipation of a 04/26 home start date. Pt's son, Carson here to visit with pt - updates given verbally including non validity of POA HCP clause per review by [facility] regulatory attorney. CM to follow.
--- NOTE | 2021-04-22 12:17 | PM.CCPN ---
Subjective Subjective Date of Service: 04/22/21 Interval History: 76-year-old lady with underlying history of advanced Alzheimer's dementia, nonverbal at baseline, diabetes mellitus, hypertension with recent admission for sepsis with source admitted on 04/20/2021 with acute hypoxic respiratory failure secondary to pulmonary aspiration requiring intubation and ventilatory support further complicated by adult failure to thrive, E coli UTI, and hypernatremia. patient has had pack placed on 04/21/2021 and she was extubated on 04/22/2021. No events overnight. Critical Care Time (minutes): 45 Physical Exam Vital Signs: Vital Signs: Last Vital Signs Temp 99.7 F 04/22/21 11:58 Pulse 92 04/22/21 11:58 Resp 22 H 04/22/21 11:58 BP 120/71 04/22/21 11:58 Pulse Ox 98 04/22/21 11:58 BMI result Body Mass Index 17.4 Const: General: no acute distress, alert, awake and confusion Orientation/consciousness: confusion Eyes: Sclerae: sclerae normal EOM: EOMs intact bilaterally Neck: Neck: Yes no lymphadenopathy, Yes trachea midline and Yes supple Resp: Effort & Inspection: normal respiratory effort and no respiratory distress Auscultation: clear to auscultation bilaterally Cardio: Rate: regular rate Rhythm: regular rhythm Heart sounds: no gallops, no murmurs and no rubs GI: Palpation (GI): Soft to palpation and Other GI palpation findings present ( Nontender) Auscultation: normal bowel sounds Neuro: General: confusion Extrem: General: Yes no pedal edema, No clubbing and No cyanosis Objective Data Labs CBC & Chem 7: 04/22/21 05:33 04/22/21 05:33 Labs: Laboratory Results - last 24 hr 04/21/21 04/21/21 04/21/21 11:38 12:10 18:01 WBC RBC Hgb Hct MCV MCH MCHC RDW Plt Count MPV Immature Gran % (Auto) Neut % (Auto) Lymph % (Auto) [place] % (Auto) Eos % (Auto) Baso % (Auto) Lymph # (Auto) [place] # (Auto) Eos # (Auto) Baso # (Auto) Abs Immat Gran (auto) Absolute Neuts (auto) Absolute Nucleated RBC Nucleated RBC % (auto) VBG pH VBG pCO2 VBG pO2 VBG HCO3 VBG O2 Saturation VBG Base Excess Sodium 149 H Potassium 4.5 D Chloride 120 H Carbon Dioxide 23 Anion Gap 11 L BUN 13 Creatinine 0.70 Estim Creat Clear Calc 52.4 Estimated GFR > 60 POC Glucose 144 H 125 H Random Glucose 147 H Calcium 8.6 Phosphorus Magnesium Albumin 04/21/21 04/22/21 04/22/21 23:39 05:33 05:33 WBC 11.8 H RBC 3.29 L Hgb 9.8 L Hct 31.5 L MCV 95.7 MCH 29.8 MCHC 31.1 RDW 14.6 Plt Count 108 L MPV 14.1 H Immature Gran % (Auto) 0.4 Neut % (Auto) 83.9 H Lymph % (Auto) 10.6 L [place] % (Auto) 3.1 Eos % (Auto) 1.7 Baso % (Auto) 0.3 Lymph # (Auto) 1.2 [place] # (Auto) 0.4 Eos # (Auto) 0.2 Baso # (Auto) 0.0 Abs Immat Gran (auto) 0.05 H Absolute Neuts (auto) 9.9 H Absolute Nucleated RBC 0.000 Nucleated RBC % (auto) 0.0 VBG pH VBG pCO2 VBG pO2 VBG HCO3 VBG O2 Saturation VBG Base Excess Sodium 150 H Potassium 3.4 D Chloride 121 H Carbon Dioxide 21 L Anion Gap 11 L BUN 13 Creatinine 0.65 Estim Creat Clear Calc 56.0 Estimated GFR > 60 POC Glucose 152 H Random Glucose 125 H Calcium 8.8 Phosphorus 2.0 L Magnesium 2.2 Albumin 3.6 04/22/21 04/22/21 04/22/21 05:34 05:40 11:20 WBC RBC Hgb Hct MCV MCH MCHC RDW Plt Count MPV Immature Gran % (Auto) Neut % (Auto) Lymph % (Auto) [place] % (Auto) Eos % (Auto) Baso % (Auto) Lymph # (Auto) [place] # (Auto) Eos # (Auto) Baso # (Auto) Abs Immat Gran (auto) Absolute Neuts (auto) Absolute Nucleated RBC Nucleated RBC % (auto) VBG pH 7.47 H VBG pCO2 26 VBG pO2 42 VBG HCO3 19 L VBG O2 Saturation 74.0 VBG Base Excess -2.6 Sodium Potassium Chloride Carbon Dioxide Anion Gap BUN Creatinine Estim Creat Clear Calc Estimated GFR POC Glucose 113 111 Random Glucose Calcium Phosphorus Magnesium Albumin Microbiology Microbiology Results: Microbiology 04/21/21 08:54 Blood - Venous Blood Culture - Preliminary No growth after 24 hours. 04/21/21 08:54 Blood - Venous Blood Culture - Preliminary No growth after 24 hours. 04/21/21 07:53 Sputum - Suctioned Gram Stain - Final 04/21/21 07:53 Sputum - Suctioned Sputum Culture - Preliminary Culture in progress. 04/19/21 Unknown Urine Catheterized - Mccrary Catheter Urine Culture - Final Escherichia coli 04/19/21 22:26 Blood - Venous Blood Culture - Preliminary Gram positive cocci 04/19/21 20:59 Blood - Venous Blood Culture - Preliminary No growth after 48 hours. Progress Note: A&P Assessment and plan (1) Adult failure to thrive: Status: Acute (2) UTI (urinary tract infection): Status: Acute (3) Diabetes: Status: Acute (4) Alzheimer disease: Status: Acute (5) Pulmonary aspiration: Status: Acute (6) Acute respiratory failure with hypoxia: Status: Acute Plan Assessment: 76-year-old lady with underlying advanced Alzheimer's dementia admitted with acute hypoxic respiratory failure secondary to pulmonary aspiration requiring intubation and pressor support Plan: Neuro: No acute issues. Underlying advanced Alzheimer's disease. Cardiac: Required pressors with intubation and sedation, now titrated off. Pulmonary: Acute hypoxic respiratory failure secondary to pulmonary aspiration. FiO2 requirements improved significantly. Extubated 04/22/2021. Continue with chest PT. Renal: Acute renal failure and hypernatremia secondary to poor p.o. intake, resolved. Non oliguric. Continue to monitor renal indices and urine output. Endo: No acute issues. GI: Status post PEG placement on 04/21/2021. General surgery service care appreciated.. ID: E coli UTI, continue with ceftriaxone. Heme/Onc: No acute issues. Psych: No acute issues. Miscellaneous: No acute issues. Prophylaxis: heparin Diet: tube feeds Critical care time spent: 45 minutes Quality Stroke Does the patient have a stroke diagnosis?: No VTE Prior VTE?: No VTE Risk Level:: Medical - moderate - high VTE Device Contraindication: Treatment Not Indicated VTE Drug Contraindication: N/A - Med Ordered
--- NOTE | 2021-04-22 12:20 | MHC.CLN ---
F/U PEG PLACED AND CAN BE STARTED TODAY PER MD RECOMMEND PROMOTE AT MAX GOAL RATE 45ML/HR WITH 120ML FREE WATER FLUSHES Q 6HRS TO PROVIDE 1080KCALS (1380KCALS WITH SEDATION AND IVF; 31.6KCALS/KG), 67.5G PROTEIN (1.5G/KG), 1386ML TOTAL WATER FROM FORMULA AND FLUSHES START FORMULA AT 10ML/HR AND INCREASE BY 10ML Q 4 HRS UNTIL MAX GOAL IS ACHIEVED PT IS AT POTENTIAL RISK FOR [id number] MG, PHOS AND K+ PROTEIN IN TF WILL PROMOTE WOUND HEALING
[2021-04-22] MEDS: Acetaminophen Oral Liquid 650 MG/20.3 ML SOLUTION PO (16:34)
[2021-04-22 17:54] LABS: Glucose, Whole Blood 131 mg/dL (60-115)
[2021-04-23] VITALS (13 sets, daily range): BP systolic 91–148; BP diastolic 50–68; PULSE 61–107; RESP 19–29; TEMP 36.5–37.6; O2SAT 90–100; BMI 17.3
[2021-04-23 00:28] LABS: Glucose, Whole Blood 203 mg/dL (60-115)
[2021-04-23] MEDS: Insulin Lispro 100 UNIT/ML 3 ML VIAL SUBCUT ×2 (00:30→11:34)
--- NOTE | 2021-04-23 04:52 | PC.NURSE ---
Addendum entered by Camilo Cunningham RN 04/23/21 06:25: titrated levophed to off about 05:30, OUTSIDE SAL[employer] ACCOUNT MANAGER aware. TItrated FiO2 to off, SpO2 hovering about 90-91%. Patient with RR 29-30, but looks comfortable. RT called to deep suction nares with copious thick yellow-taylor secretions out Original Note: Assumed care from WALTER Santos, at about 15:00. Patient is alert often, but does not follow commands or reply to questions, she does track and attend the speaker, but inconsistently. She moves all extremities, but non-purposefully. She is satting well on 2LPM. Coarse loose cough, not coughing up secretions currently. Aggressive oral care. RT doing chest PT and deep nasal suctioning. Patient with diminished lung sounds. Breathing easily on 2 lpm. Patient with diminished BS. pressure injuries stage 2 coccyx and L heel dti, left buttocks stage 2; foam and triad under it.
[2021-04-23 05:25] LABS: VBG Base Excess -0.9 mmol/L; VBG HCO3 22 mmol/L (22-26); VBG pCO2 31 mmHg; VBG pH 7.45 (7.32-7.43); VBG pO2 40 mmHg
[2021-04-23 05:29] LABS: MANUAL DIFF FLAG NO
--- NOTE | 2021-04-23 05:42 | MHC.CDI.CONC ---
CDI Concurrent Query Documentation Clarification: PHYSICIAN'S DOCUMENTATION REQUEST Date of Query: 04/23/21 0543 Patient Name: Monica Akins Admit Date: 04/19/21 Dear Doctor, A review of the medical record indicates additional documentation may be needed. Please review below and update the documentation accordingly. Risk Factors/Clinical Indicators/Treatments Lab findings: potassium 2.6 L IV potassium chloride Surgery note 04/21 - potassium was low earlier - corrected. Based on the above, could you clarify in the Progress Notes the appropriate diagnosis, if significant, that supports the above abnormalities and additional evaluation, monitoring, and/or treatment rendered: Hypokalemia or other etiology of lab findings Labs indicate a diagnosis of (please specify) Other (please specify) Unable to determine Use of terms such as suspected, likely, concern for, or probable (associated with a specific diagnosis that is being evaluated, monitored, or treated as if it exists) are acceptable and can be coded in the inpatient setting, when documented at the time of discharge. Thank you, Pura Treviño [facility], CDIS Extension: [phone] Please use your independent medical judgment in providing your response. THIS QUERY IS PART OF THE PERMANENT MEDICAL RECORD Provider Response: Other ( resolved hypokalemia) Other Diagnosis: resolved hypokalemia
[2021-04-23] MEDS: Acetaminophen Oral Liquid 650 MG/20.3 ML SOLUTION PO (05:46)
[2021-04-23] MEDS: Heparin Sodium,Porcine 5,000 UNIT/ML VIAL 5000 UNIT SUBCUT ×2 (05:50→14:49)
[2021-04-23 05:53] LABS: Glucose, Whole Blood 138 mg/dL (60-115)
[2021-04-23 05:55] LABS: Albumin Level 3.4 g/dL (3.5-5.0); Anion Gap 10 (12-20); Blood Urea Nitrogen 14 mg/dL (9-16); Calcium 8.6 mg/dL (8.4-10.2); Carbon Dioxide 23 mmol/L (22-29); Chloride 118 mmol/L (96-108); Creatinine Clr Calc Pharmacy 61.7; Estimated Glomerular Filt Rate > 60; Glucose Random 162 mg/dL (60-115); Magnesium 2.2 mg/dL (1.6-2.6); Phosphorus 1.9 mg/dL (2.7-4.5); Potassium 3.2 mmol/L (3.3-5.1); Sodium 148 mmol/L (135-145)
[2021-04-23 06:06] LABS: Venous Blood Gas Refer to POC result
[2021-04-23] MEDS: Potassium Phosphate/NS 15 MMOL/250 ML PLAST..BAG 62.5 MMOL IV ×3 (07:53→15:43)
[2021-04-23] MEDS: Albumin Human 25 % 100 ML IV ×3 (08:22→20:04)
[2021-04-23 08:23] LABS: Basophils Percent Auto 0.2 % (0-2); Eosinophils Absolute Auto 0.4 X10*3/uL (0.0-0.4); Eosinophils Percent Auto 3.8 % (0-4); Hematocrit 32.5 % (37.0-47.0); Hemoglobin 10.3 g/dl (12.0-16.0); Imm Gran Abs Auto 0.04 X10*3/uL (0.00-0.03); Imm Gran Pct Auto 0.4 % (0.0-0.4); Lymphocytes Absolute Auto 0.9 X10*3/uL (1.2-4.9); Mean Corpuscular HGB Conc 31.7 g/dl (31.0-35.0); Mean Corpuscular Volume 94.8 fL (80.0-98.0); Mean Platelet Volume 13.9 fL (9.4-12.3); Monocytes Absolute Auto 0.4 X10*3/uL (0.1-1.2); Monocytes Percent Auto 3.4 % (2-11); Neutrophils Absolute Auto 9.1 x10*3/uL (2.0-8.3); Neutrophils Percent Auto 84.2 % (45-73); Platelet Count 120 X10*3/uL (160-400); Red Blood Count 3.43 X10*6/uL (4.20-5.50); Red Cell Distribution Width 14.7 % (11.0-16.0); White Blood Count 10.8 X10*3/uL (4.8-10.8)
--- NOTE | 2021-04-23 09:38 | MHC.CLN ---
F/U PT RECEIVING PROMOTE AT MAX GOAL RATE 45ML/HR WITH 120ML FREE WATER FLUSHES Q 6HRS TO PROVIDE 1080KCALS (25KCALS/KG), 67.5G PROTEIN (1.5G/KG), 1386ML TOTAL WATER FROM FORMULA AND FLUSHES (32ML/KG) PT IS AT POTENTIAL RISK FOR [id number] MG, PHOS AND K+ ADJUST FREE WATER FLUSHES NEEDED PROTEIN IN TF WILL PROMOTE WOUND HEALING
--- NOTE | 2021-04-23 10:19 | PC.NURSE ---
Mccrary catheter removed at 1015 without complication. [place] cath in place. Patient DTV by 1615.
--- NOTE | 2021-04-23 10:28 | PM.CCPN ---
Subjective Subjective Date of Service: 04/23/21 Interval History: 76-year-old lady with underlying history of advanced Alzheimer's dementia, nonverbal at baseline, diabetes mellitus, hypertension with recent admission for sepsis with source admitted on 04/20/2021 with acute hypoxic respiratory failure secondary to pulmonary aspiration requiring intubation and ventilatory support further complicated by adult failure to thrive, E coli UTI, and hypernatremia. Patient has had PEG laced on 04/21/2021 and she was extubated on 04/22/2021. No events overnight. Critical Care Time (minutes): 0 Physical Exam Vital Signs: Vital Signs: Last Vital Signs Temp 99.0 F 04/23/21 08:00 Pulse 92 04/23/21 08:00 Resp 21 H 04/23/21 08:00 BP 97/57 L 04/23/21 08:00 Pulse Ox 90 L 04/23/21 08:00 BMI result Body Mass Index 17.3 Const: General: no acute distress and lethargic ( arousable, confused) Orientation/consciousness: lethargic ( arousable, confused) Eyes: Sclerae: sclerae normal EOM: EOMs intact bilaterally Neck: Neck: Yes no lymphadenopathy, Yes trachea midline and Yes supple Resp: Effort & Inspection: normal respiratory effort and no respiratory distress Auscultation: clear to auscultation bilaterally Cardio: Rate: regular rate Rhythm: regular rhythm Heart sounds: no gallops, no murmurs and no rubs GI: Inspection: Yes G-tube present Palpation (GI): Soft to palpation and Other GI palpation findings present ( Nontender) Auscultation: normal bowel sounds Extrem: General: Yes no pedal edema, No clubbing and No cyanosis Objective Data Labs CBC & Chem 7: 04/23/21 05:12 04/23/21 05:12 Labs: Laboratory Results - last 24 hr 04/22/21 04/22/21 04/23/21 11:20 17:44 00:21 WBC RBC Hgb Hct MCV MCH MCHC RDW Plt Count MPV Immature Gran % (Auto) Neut % (Auto) Lymph % (Auto) [place] % (Auto) Eos % (Auto) Baso % (Auto) Lymph # (Auto) [place] # (Auto) Eos # (Auto) Baso # (Auto) Abs Immat Gran (auto) Absolute Neuts (auto) Absolute Nucleated RBC Nucleated RBC % (auto) VBG pH VBG pCO2 VBG pO2 VBG HCO3 VBG O2 Saturation VBG Base Excess Sodium Potassium Chloride Carbon Dioxide Anion Gap BUN Creatinine Estim Creat Clear Calc Estimated GFR POC Glucose 111 131 H 203 H Random Glucose Calcium Phosphorus Magnesium Albumin 04/23/21 04/23/21 04/23/21 05:12 05:12 05:18 WBC 10.8 RBC 3.43 L Hgb 10.3 L Hct 32.5 L MCV 94.8 MCH 30.0 MCHC 31.7 RDW 14.7 Plt Count 120 L MPV 13.9 H Immature Gran % (Auto) 0.4 Neut % (Auto) 84.2 H Lymph % (Auto) 8.0 L [place] % (Auto) 3.4 Eos % (Auto) 3.8 Baso % (Auto) 0.2 Lymph # (Auto) 0.9 L [place] # (Auto) 0.4 Eos # (Auto) 0.4 Baso # (Auto) 0.0 Abs Immat Gran (auto) 0.04 H Absolute Neuts (auto) 9.1 H Absolute Nucleated RBC 0.000 Nucleated RBC % (auto) 0.0 VBG pH 7.45 H VBG pCO2 31 VBG pO2 40 VBG HCO3 22 VBG O2 Saturation 70.0 VBG Base Excess -0.9 Sodium 148 H Potassium 3.2 L Chloride 118 H Carbon Dioxide 23 Anion Gap 10 L BUN 14 Creatinine 0.59 Estim Creat Clear Calc 61.7 Estimated GFR > 60 POC Glucose Random Glucose 162 H Calcium 8.6 Phosphorus 1.9 L Magnesium 2.2 Albumin 3.4 L 04/23/21 05:40 WBC RBC Hgb Hct MCV MCH MCHC RDW Plt Count MPV Immature Gran % (Auto) Neut % (Auto) Lymph % (Auto) [place] % (Auto) Eos % (Auto) Baso % (Auto) Lymph # (Auto) [place] # (Auto) Eos # (Auto) Baso # (Auto) Abs Immat Gran (auto) Absolute Neuts (auto) Absolute Nucleated RBC Nucleated RBC % (auto) VBG pH VBG pCO2 VBG pO2 VBG HCO3 VBG O2 Saturation VBG Base Excess Sodium Potassium Chloride Carbon Dioxide Anion Gap BUN Creatinine Estim Creat Clear Calc Estimated GFR POC Glucose 138 H Random Glucose Calcium Phosphorus Magnesium Albumin Microbiology Microbiology Results: Microbiology 04/21/21 07:53 Sputum - Suctioned Gram Stain - Final 04/21/21 07:53 Sputum - Suctioned Sputum Culture - Preliminary Yeast Gram negative vinita 04/19/21 22:26 Blood - Venous Blood Culture - Final Streptococcus viridans group 04/21/21 08:54 Blood - Venous Blood Culture - Preliminary No growth after 24 hours. 04/21/21 08:54 Blood - Venous Blood Culture - Preliminary No growth after 24 hours. 04/19/21 Unknown Urine Catheterized - Mccrary Catheter Urine Culture - Final Escherichia coli 04/19/21 20:59 Blood - Venous Blood Culture - Preliminary No growth after 48 hours. Progress Note: A&P Assessment and plan (1) UTI (urinary tract infection): Status: Acute (2) Adult failure to thrive: Status: Acute (3) Diabetes: Status: Acute (4) Alzheimer disease: Status: Acute (5) Pulmonary aspiration: Status: Acute Plan Assessment: 76-year-old lady with underlying advanced Alzheimer's dementia admitted with acute hypoxic respiratory failure secondary to pulmonary aspiration requiring intubation and pressor support Plan: Neuro: No acute issues. Underlying advanced Alzheimer's disease. Cardiac: Required pressors with intubation and sedation, now titrated off. Pulmonary: Acute hypoxic respiratory failure secondary to pulmonary aspiration. FiO2 requirements improved significantly. Extubated 04/22/2021. Continue with chest PT. Renal: Acute renal failure and hypernatremia secondary to poor p.o. intake, resolved. Non oliguric. Continue to monitor renal indices and urine output. Endo: No acute issues. GI: Status post PEG placement on 04/21/2021. General surgery service care appreciated. ID: E coli UTI, continue with ceftriaxone. Heme/Onc: No acute issues. Psych: No acute issues. Miscellaneous: No acute issues. Prophylaxis: heparin Diet: tube feeds Quality Stroke Does the patient have a stroke diagnosis?: No VTE Prior VTE?: No VTE Risk Level:: Medical - moderate - high VTE Device Contraindication: Treatment Not Indicated VTE Drug Contraindication: N/A - Med Ordered
[2021-04-23] MEDS: cefTRIAXone sodium 1 GM in 0.9 % Sodium Chloride 50 ML IV (11:00)
[2021-04-23 11:45] LABS: Glucose, Whole Blood 153 mg/dL (60-115)
--- NOTE | 2021-04-23 12:05 | MHC.CM.PN ---
Addendum entered by Gabriela Russell 04/23/21 12:07: Copy of HCP obtained from [facility] and put in chart. Original Note: Patient remains in ICU. PEG tube was placed on 04/21. [facility] enteral feeding form completed and signed by Dr Villareal. Faxed to [facility]. Anticipate patient will d/c home with [facility], [facility] services and [facility] for tube feedings. Patient will need BLS tx at d/c. Continue to monitor for d/c needs.
[2021-04-23 17:57] LABS: Glucose, Whole Blood 79 mg/dL (60-115)
[2021-04-24] VITALS: BP 132/69; PULSE 101; RESP 28; TEMP 37.4; O2SAT 94
[2021-04-24] MEDS: Insulin Lispro 100 UNIT/ML 3 ML VIAL SUBCUT ×3 (00:09→18:18)
[2021-04-24] MEDS: Heparin Sodium,Porcine 5,000 UNIT/ML VIAL 5000 UNIT SUBCUT ×3 (00:09→15:15)
[2021-04-24 01:04] LABS: Glucose, Whole Blood 175 mg/dL (60-115)
[2021-04-24] MEDS: Albumin Human 25 % 100 ML IV (02:16)
[2021-04-24 04:00] VITALS: BP 142/81; PULSE 104; RESP 27; TEMP 37.3; O2SAT 96
[2021-04-24 06:06] LABS: MANUAL DIFF FLAG NO
[2021-04-24 06:13] LABS: Basophils Percent Auto 0.1 % (0-2); Eosinophils Absolute Auto 0.2 X10*3/uL (0.0-0.4); Eosinophils Percent Auto 2.3 % (0-4); Hematocrit 33.3 % (37.0-47.0); Hemoglobin 10.5 g/dl (12.0-16.0); Imm Gran Abs Auto 0.05 X10*3/uL (0.00-0.03); Imm Gran Pct Auto 0.6 % (0.0-0.4); Lymphocytes Absolute Auto 0.9 X10*3/uL (1.2-4.9); Mean Corpuscular HGB Conc 31.5 g/dl (31.0-35.0); Mean Corpuscular Hemoglobin 29.7 pg (27.0-33.0); Mean Corpuscular Volume 94.1 fL (80.0-98.0); Mean Platelet Volume 13.5 fL (9.4-12.3); Monocytes Absolute Auto 0.4 X10*3/uL (0.1-1.2); Monocytes Percent Auto 4.4 % (2-11); Neutrophils Absolute Auto 7.1 x10*3/uL (2.0-8.3); Neutrophils Percent Auto 82.6 % (45-73); Platelet Count 124 X10*3/uL (160-400); Red Blood Count 3.54 X10*6/uL (4.20-5.50); White Blood Count 8.6 X10*3/uL (4.8-10.8)
[2021-04-24 06:30] LABS: Anion Gap 11 (12-20); Blood Urea Nitrogen 12 mg/dL (9-16); Calcium 8.9 mg/dL (8.4-10.2); Carbon Dioxide 23 mmol/L (22-29); Chloride 116 mmol/L (96-108); Creatinine Clr Calc Pharmacy 61.5; Estimated Glomerular Filt Rate > 60; Glucose Random 180 mg/dL (60-115); Potassium 3.8 mmol/L (3.3-5.1); Sodium 146 mmol/L (135-145)
[2021-04-24 08:00] VITALS: BP 159/87; PULSE 105; RESP 28; TEMP 36.9; O2SAT 94
[2021-04-24] MEDS: cefTRIAXone sodium 1 GM in 0.9 % Sodium Chloride 50 ML IV (11:16)
[2021-04-24 11:21] LABS: Glucose, Whole Blood 161 mg/dL (60-115)
[2021-04-24 12:00] VITALS: BP 144/82; PULSE 111; RESP 29; TEMP 37.6; O2SAT 92
[2021-04-24 15:08] VITALS: BP 122/74; PULSE 120; RESP 18; TEMP 36.7; O2SAT 92
[2021-04-24 18:02] LABS: Glucose, Whole Blood 202 mg/dL (60-115)
--- NOTE | 2021-04-24 18:48 | P.PNIM_ITS ---
Subjective Subjective Date of Service: 04/25/21 Physical Exam Vital Signs: Vital Signs: Last Vital Signs Temp 98.1 F 04/24/21 15:08 Pulse 120 H 04/24/21 15:08 Resp 18 04/24/21 15:08 BP 122/74 04/24/21 15:08 Pulse Ox 92 04/24/21 15:08 BMI result Body Mass Index 17.3 Const: General: patient obtunded Orientation/consciousness: patient obtunded Resp: Auscultation: rhonchi (all cintron) Cardio: Jugular venous distension: no JVD Rate: regular rate Rhythm: re gular rhythm Heart sounds: S1 normal heart sound present, S2 normal heart sound present and no murmurs GI: Inspection: Yes GJ-tube present Auscultation: normal bowel sounds Neuro: General: patient obtunded Extrem: General: Yes normal to inspection Objective Data Active Medications Acetaminophen (Acetaminophen Oral Liquid 650 Mg/20.3 Ml Solution) 650 mg PO Q6H PRN PRN Reason: Pain, Mild (Pain Scale 1-3) Last Admin: 04/23/21 05:46 Dose: 650 mg Documented by: ROBIN Heparin Sodium (Porcine) (Heparin Sodium,Porcine 5,000 Unit/Ml Vial) 5,000 unit SUBCUT Q8H [facility] Last Admin: 04/24/21 15:15 Dose: 5,000 unit Documented by: MIROSLAVA Ceftriaxone Sodium 1 gm/ (Sodium Chloride) 50 mls @ 100 mls/hr IV Q24H [facility] Last Infusion: 04/24/21 11:46 Dose: 0 mls/hr Documented by: IGLESCharly Insulin Human Lispro (Insulin Lispro 100 Unit/Ml 3 Ml Vial) 0 unit SUBCUT Q6H [facility]; Protocol Last Admin: 04/24/21 18:18 Dose: 4 unit Documented by: MIROSLAVA Pharmacy Consult (Consult Rx Vancomycin Dosing) 1 each MISCELLANE DAILY PRN PRN Reason: Consult order Labs CBC & Chem 7: 04/25/21 09:19 04/24/21 05:40 Labs: Laboratory Results - last 24 hr 04/24/21 04/24/21 04/24/21 00:02 05:40 05:40 MCV 94.1 MCH 29.7 MCHC 31.5 RDW 15.0 Plt Count 124 L MPV 13.5 H Immature Gran % (Auto) 0.6 H Neut % (Auto) 82.6 H Lymph % (Auto) 10.0 L [place] % (Auto) 4.4 Eos % (Auto) 2.3 Baso % (Auto) 0.1 Lymph # (Auto) 0.9 L [place] # (Auto) 0.4 Eos # (Auto) 0.2 Baso # (Auto) 0.0 Abs Immat Gran (auto) 0.05 H Absolute Neuts (auto) 7.1 Absolute Nucleated RBC 0.000 Nucleated RBC % (auto) 0.0 Anion Gap 11 L Estim Creat Clear Calc 61.5 Estimated GFR > 60 POC Glucose 175 H Random Glucose 180 H Calcium 8.9 04/24/21 04/24/21 11:18 17:58 MCV MCH MCHC RDW Plt Count MPV Immature Gran % (Auto) Neut % (Auto) Lymph % (Auto) [place] % (Auto) Eos % (Auto) Baso % (Auto) Lymph # (Auto) [place] # (Auto) Eos # (Auto) Baso # (Auto) Abs Immat Gran (auto) Absolute Neuts (auto) Absolute Nucleated RBC Nucleated RBC % (auto) Anion Gap Estim Creat Clear Calc Estimated GFR POC Glucose 161 H 202 H Random Glucose Calcium Microbiology Microbiology Results: Microbiology 04/21/21 07:53 Gram Stain - Final Sputum - Suctioned Sputum Culture - Final Meredith lusitaniae Serratia marcescens Assessment and Plan (1) Acute respiratory failure with hypoxia: Status: Acute (2) Pneumonia: Status: Acute (3) Alzheimer disease: Status: Acute Plan Assessment: 76-year-old lady with underlying advanced Alzheimer's dementia admitted with acute hypoxic respiratory failure secondary to pulmonary aspir ation requiring intubation and pressor support 1. Acute hypoxic respiratory failure secondary to aspiration - Sats stable - continue CTX/Nebs -wean O2 as tolerated. - GTube feeds 2.Dementia -severe , continue outpatient therapies.. Prophylaxis: heparin Diet: tube feeds Quality Stroke Does the patient have a stroke diagnosis?: No VTE Prior VTE?: No VTE Risk Level:: Medical - moderate - high VTE Device Contraindication: Treatment Not Indicated VTE Drug Contraindication: N/A - Med Ordered
[2021-04-24 19:06] VITALS: BP 122/62; PULSE 118; RESP 20; TEMP 36.7; O2SAT 92
[2021-04-25] VITALS (14 sets, daily range): BP systolic 99–131; BP diastolic 57–84; PULSE 101–133; RESP 13–40; TEMP 36.3–37.5; O2SAT 91–100; BMI 14.9
[2021-04-25 00:12] LABS: Glucose, Whole Blood 219 mg/dL (60-115)
[2021-04-25] MEDS: Heparin Sodium,Porcine 5,000 UNIT/ML VIAL 5000 UNIT SUBCUT ×2 (00:29→06:30)
[2021-04-25] MEDS: Insulin Lispro 100 UNIT/ML 3 ML VIAL SUBCUT ×2 (00:30→06:30)
[2021-04-25] MEDS: Acetaminophen Oral Liquid 650 MG/20.3 ML SOLUTION PO (00:43)
[2021-04-25 06:03] LABS: Glucose, Whole Blood 157 mg/dL (60-115)
[2021-04-25 09:26] LABS: Basophils Percent Auto 0.2 % (0-2); Hematocrit 34.2 % (37.0-47.0); Imm Gran Abs Auto 0.15 X10*3/uL (0.00-0.03); Lymphocytes Percent Auto 11.4 % (20-40); Mean Platelet Volume 13.4 fL (9.4-12.3); NRBC Pct Auto 0.1 /100WBC (0.0-0.2); SCAN SMEAR FLAG 1
[2021-04-25 09:28] LABS: Eosinophils Absolute Auto 0.2 X10*3/uL (0.0-0.4); Eosinophils Percent Auto 1.7 % (0-4); Hemoglobin 11.2 g/dl (12.0-16.0); Imm Gran Pct Auto 1.1 % (0.0-0.4); Lymphocytes Absolute Auto 1.6 X10*3/uL (1.2-4.9); MANUAL DIFF FLAG SCAN; Mean Corpuscular HGB Conc 32.7 g/dl (31.0-35.0); Mean Corpuscular Hemoglobin 30.4 pg (27.0-33.0); Mean Corpuscular Volume 92.7 fL (80.0-98.0); Monocytes Absolute Auto 0.6 X10*3/uL (0.1-1.2); Monocytes Percent Auto 4.5 % (2-11); Neutrophils Absolute Auto 11.6 x10*3/uL (2.0-8.3); Neutrophils Percent Auto 81.1 % (45-73); PLT CLUMP 1; Red Blood Count 3.69 X10*6/uL (4.20-5.50); Red Cell Distribution Width 15.1 % (11.0-16.0)
[2021-04-25 09:29] LABS: PLT ABN DIST 1
[2021-04-25 09:43] LABS: Platelet Count 166 X10*3/uL (160-400); White Blood Count 14.3 X10*3/uL (4.8-10.8)
[2021-04-25 09:45] LABS: SLIDE REVIEW VERIFIED
--- NOTE | 2021-04-25 09:53 | PC.NURSE ---
Pt tube feed stopped per DR. Gallo. No residual from feeding. Will continue to monitor.
[2021-04-25] MEDS: cefTRIAXone sodium 1 GM in 0.9 % Sodium Chloride 50 ML IV (11:02)
[2021-04-25] MEDS: Furosemide 40 MG/4 ML VIAL IVPUSH (11:03)
[2021-04-25 11:18] LABS: Glucose, Whole Blood 153 mg/dL (60-115)
--- NOTE | 2021-04-25 13:39 | HO.PM.IMPN ---
Subjective Subjective Date of Service: 04/25/21 Interval History: overall decline last 24hrs. Breaththing more labored Review of Systems unable to obtain Physical Exam Vital Signs: Vital Signs: Last Vital Signs Temp 98.0 F 04/25/21 11:11 Pulse 124 H 04/25/21 11:11 Resp 20 04/25/21 11:11 BP 128/78 04/25/21 11:11 Pulse Ox 93 04/25/21 11:11 BMI result Body Mass Index 14.9 Const: Other: non-verbal Resp: Other: diffuse coarse rhonchi throughout;wek cough unable to clear Cardio: Other: -S4 +S1/S2 =S3 MRG GI: Other: soft NT/ND NABS. Gtube site CDI Extrem: Other: No edema Objective Data Active Medications Morphine Sulfate () 100 mg in 100 mls @ 0 mls/hr IVCONT .Q0M [facility]; Protocol Labs CBC & Chem 7: 04/25/21 09:19 04/24/21 05:40 Labs: Laboratory Results - last 24 hr 04/24/21 04/24/21 04/25/21 17:58 23:59 05:59 MCV MCH MCHC RDW Plt Count MPV Immature Gran % (Auto) Neut % (Auto) Lymph % (Auto) [place] % (Auto) Eos % (Auto) Baso % (Auto) Lymph # (Auto) [place] # (Auto) Eos # (Auto) Baso # (Auto) Abs Immat Gran (auto) Absolute Neuts (auto) Absolute Nucleated RBC Nucleated RBC % (auto) Smear Tech's Comments POC Glucose 202 H 219 H 157 H 04/25/21 04/25/21 09:19 11:14 MCV 92.7 MCH 30.4 MCHC 32.7 RDW 15.1 Plt Count 166 D MPV 13.4 H Immature Gran % (Auto) 1.1 H Neut % (Auto) 81.1 H Lymph % (Auto) 11.4 L [place] % (Auto) 4.5 Eos % (Auto) 1.7 Baso % (Auto) 0.2 Lymph # (Auto) 1.6 [place] # (Auto) 0.6 Eos # (Auto) 0.2 Baso # (Auto) 0.0 Abs Immat Gran (auto) 0.15 H Absolute Neuts (auto) 11.6 H Absolute Nucleated RBC 0.020 H Nucleated RBC % (auto) 0.1 Smear Tech's Comments VERIFIED POC Glucose 153 H Microbiology Microbiology Results: Microbiology 04/19/21 20:59 Blood Culture - Final Blood - Venous No growth after 5 days. 04/21/21 07:53 Gram Stain - Final Sputum - Suctioned Sputum Culture - Final Meredith lusitaniae Serratia marcescens Assessment and Plan (1) Alzheimer disease: Status: Acute Assessment and Plan: Continued to decline during am...O2 requirement increasing. (2) Pulmonary aspiration: Status: Acute (3) Acute respiratory failure with hypoxia: Status: Acute Plan CXR done demonstrating worsening Pulmonry infiltrates. Essential no cough. Long discussion with husbad/children....Pt made SENIOR ADMINISTRATOR SUPPORT. MSO4 drip started. Titrate to comfort Quality Stroke Does the patient have a stroke diagnosis?: No VTE Prior VTE?: No VTE Risk Level:: Medical - moderate - high VTE Device Contraindication: Treatment Not Indicated VTE Drug Contraindication: N/A - Med Ordered
[2021-04-25] MEDS: Morphine Sulfate/NS 100 MG/100 ML PLAST..BAG IVCONT (15:07)
[2021-04-25] MEDS: Morphine Sulfate 4 MG/ML CARTRIDGE IVPUSH (15:55)
[2021-04-25] MEDS: Scopolamine 1.5 MG PATCH.TD.3 EAR-BEHIND (15:56)
[2021-04-26] VITALS (14 sets, daily range): BP systolic 73; BP diastolic 52; PULSE 104–120; RESP 8–12; TEMP 37.1; O2SAT 63
--- NOTE | 2021-04-26 11:33 | MHC.CM.PN ---
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
--- NOTE | 2021-04-26 12:52 | P.PNIM_ITS ---
Subjective Subjective Date of Service: 04/26/21 Interval History: comfort care Review of Systems unable to obtain Neurologic Neurologic: Reports confusion Psychiatric Psychiatric: Reports confusion Physical Exam Vital Signs: Vital Signs: Last Vital Signs Temp 98.8 F 04/26/21 06:58 Pulse 104 H 04/26/21 06:58 Resp 11 L 04/26/21 11:31 BP 73/52 L 04/26/21 06:58 Pulse Ox 63 L 04/26/21 06:58 BMI result Body Mass Index 14.9 Const: Other: non-verbal General: confusion and patient obtunded Or ientation/consciousness: confusion and patient obtunded Resp: Other: diffuse coarse rhonchi throughout;wek cough unable to clear Auscultation: rhonchi (all cintron) Cardio: Other: -S4 +S1/S2 =S3 MRG Jugular venous distension: no JVD Rate: regular rate Rhythm: regular rhythm Heart sounds: S1 normal heart sound present, S2 normal heart sound present and no murmurs GI: Other: soft NT/ND NABS. Gtube site CDI Inspection: Yes GJ-tube present Auscultation: normal bowel sounds Neuro: General: confusion and patient obtunded Extrem: Other: No edema General: Yes normal to inspection Objective Data Active Medications Morphine Sulfate () 100 mg in 100 mls @ 0 mls/hr IVCONT .Q0M [facility]; Protocol Last Infusion: 04/25/21 15:35 Dose: 4 mg/hr, 4 mls/hr Documented by: COTEMA Lorazepam (Lorazepam 2 Mg/Ml Vial) 1 mg IVPUSH Q2H PRN PRN Reason: anxiety/restlessness Morphine Sulfate (Morphine Sulfate 4 Mg/Ml Cartridge) 4 mg IVPUSH ONCE PRN; Protocol PRN Reason: anxiety/restlessness Last Admin: 04/25/21 15:55 Dose: 4 mg Documented by: COTFLORINDA Labs CBC & Chem 7: 04/25/21 09:19 04/24/21 05:40 Microbiology Microbiology Results: Microbiology 04/21/21 08:54 Blood Culture - Final Blood - Venous No growth after 5 days. 04/21/21 08:54 Blood Culture - Final Blood - Venous No growth after 5 days. Assessment and Plan (1) Alzheimer disease: Status: Acute Assessment and Plan: Continued to decline during am...O2 requirement increasing. Plan Remains on comfort care...family at bedside Quality Stroke Does the patient have a stroke diagnosis?: No VTE Prior VTE?: No VTE Risk Level:: Medical - moderate - high VTE Device Contraindication: Treatment Not Indicated VTE Drug Contraindication: N/A - Med Ordered
--- NOTE | 2021-04-26 14:39 | MHC.CLN ---
F/U PT IS NOW LOGISTICAL ENGINEER TF STOPPED 04/[address] GARRETT YATES D/C TF ORDER AT THIS TIME WILL FOLLOW WITH TEAM AND PROVIDE SUPPORT NEEDED
[2021-04-26] MEDS: Morphine Sulfate/NS 100 MG/100 ML PLAST..BAG IVCONT (15:32)
--- NOTE | 2021-04-26 15:35 | PC.NURSE ---
Few mls remaining from TABLE SETTER change. wasted with [facility] Clinical coordinator.
[2021-04-27] VITALS (14 sets, daily range): BP systolic 98; BP diastolic 57; PULSE 118; RESP 8–11; TEMP 35.9; O2SAT 62
--- NOTE | 2021-04-27 13:53 | HO.PM.IMPN ---
Subjective Subjective Date of Service: 04/27/21 Interval History: comfort care Review of Systems unable to obtain Neurologic Neurologic: Reports confusion Psychiatric Psychiatric: Reports confusion Physical Exam Vital Signs: Vital Signs: Last Vital Signs Temp 96.7 F L 04/27/21 07:10 Pulse 118 H 04/27/21 07:10 Resp 10 L 04/27/21 12:00 BP 98/57 L 04/27/21 07:10 Pulse Ox 62 L 04/27/21 07:10 BMI result Body Mass Index 14.9 Const: Other: non-verbal General: confusion and patient obtunded Orientation/consciousness: confusion and patient obtunded Resp: Other: diffuse coarse rhonchi throughout;wek cough unable to clear Auscultation: rhonchi (all cintron) Cardio: Other: -S4 +S1/S2 =S3 MRG Jugular venous distension: no JVD Rate: regular rate Rhythm: regular rhythm Heart sounds: S1 normal heart sound present, S2 normal heart sound present and no murmurs GI: Other: soft NT/ND NABS. Gtube site CDI Inspection: Yes GJ-tube present Auscultation: normal bowel sounds Neuro: General: confusion and patient obtunded Extrem: Other: No edema General: Yes normal to inspection Objective Data Active Medications Morphine Sulfate () 100 mg in 100 mls @ 0 mls/hr IVCONT .Q0M [facility]; Protocol Last Admin: 04/26/21 15:32 Dose: 4 mg/hr, 4 mls/hr Documented by: RAMÓN Lorazepam (Lorazepam 2 Mg/Ml Vial) 1 mg IVPUSH Q2H PRN PRN Reason: anxiety/restlessness Morphine Sulfate (Morphine Sulfate 4 Mg/Ml Cartridge) 4 mg IVPUSH ONCE PRN; Protocol PRN Reason: anxiety/restlessness Last Admin: 04/25/21 15:55 Dose: 4 mg Documented by: MIROSLAVA Labs CBC & Chem 7: 04/25/21 09:19 04/24/21 05:40 Microbiology Microbiology Results: Microbiology 04/21/21 08:54 Blood Culture - Final Blood - Venous No growth after 5 days. 04/21/21 08:54 Blood Culture - Final Blood - Venous No growth after 5 days. Assessment and Plan (1) Alzheimer disease: Status: Acute Assessment and Plan: Continued to decline during am...O2 requirement increasing. Plan Remains on comfort care...family at bedside Quality Stroke Does the patient have a stroke diagnosis?: No VTE Prior VTE?: No VTE Risk Level:: Medical - moderate - high VTE Device Contraindication: Treatment Not Indicated VTE Drug Contraindication: N/A - Med Ordered
[2021-04-27] MEDS: Morphine Sulfate/NS 100 MG/100 ML PLAST..BAG IVCONT (15:48)
--- NOTE | 2021-04-27 15:50 | PC.NURSE ---
JAVA SYBASE DEVELOPER pump change. 10 ml wasted witnessed by WALTER Bianchi.
[2021-04-28] VITALS (9 sets, daily range): RESP 5–10
--- NOTE | 2021-04-28 09:35 | P.CDIC_ITS ---
CDI Concurrent Query Documentation Clarification: PHYSICIAN'S DOCUMENTATION REQUEST Date of Query: 04/28/21 0936 Patient Name: Monica Akins Admit Date: 04/19/21 Dear Doctor, A review of the medical record indicates additional documentation may be indicated. Please review below and update the documentation accordingly. Clinical Indicators: Risk Factors/Clinical Indicators/Treatments Wound care notes 04/27 - Pressure Injury left heel Stage II Foam dressing applied. Based on the above, could you please provide, in the Progress Notes, further information regarding the ulcer/wound: * If a pressure ulcer/injury, please also include the stage* of the ulcer: * Stage 1 - Skin intact, non-blanchable redness * Stage 2 - Partial thickness loss of dermis, includes intact or open blister * Other * Unable to determine *Source: National Pressure Ulcer Advisory Panel (NPUAP) Use of terms such as suspected, likely, concern for, or probable (associated with a specific diagnosis that is being evaluated, monitored, or treated as if it exists) are acceptable and can be coded in the inpatient setting, when documented at the time of discharge. Thank you, Pura Treviño [facility] [place], CDIS Extension: [phone] Please use your independent medical judgment in providing your response. THIS QUERY IS PART OF THE PERMANENT MEDICAL RECORD Provider Response: Other Other Diagnosis: Pressure Injury left heel Stage II
[2021-04-28] MEDS: Scopolamine 1.5 MG PATCH.TD.3 TRANSDERMA (10:59)
--- NOTE | 2021-04-28 11:29 | MHC.CDI.CONC ---
CDI Concurrent Query Documentation Clarification: PHYSICIAN'S DOCUMENTATION REQUEST Date of Query: 04/28/21 1129 Patient Name: Monica Akins Admit Date: 04/19/21 Dear Doctor, A review of the medical record indicates additional documentation may be indicated. Please review below and update the documentation accordingly. Clinical Indicators: Risk Factors/Clinical Indicators/Treatments Wound care notes 04/19 - Pressure Injury Stage II coccyx. [facility] q2hr, repo Based on the above, could you please provide, in the Progress Notes, further information regarding the ulcer/wound: If a pressure ulcer/injury, please also include the stage* of the ulcer: Stage 1 - Skin intact, non-blanchable redness Stage 2 - Partial thickness loss of dermis, includes intact or open blister Other Unable to determine *Source: National Pressure Ulcer Advisory Panel (NPUAP) Use of terms such as suspected, likely, concern for, or probable (associated with a specific diagnosis that is being evaluated, monitored, or treated as if it exists) are acceptable and can be coded in the inpatient setting, when documented at the time of discharge. Thank you, Pura Treviño [facility], CDIS Extension: [phone] Please use your independent medical judgment in providing your response. THIS QUERY IS PART OF THE PERMANENT MEDICAL RECORD Provider Response: Other Other Diagnosis: Pressure Injury Stage II coccyx.
--- NOTE | 2021-04-28 13:41 | P.PNIM_ITS ---
Subjective Subjective Date of Service: 04/28/21 Interval History: Unresponsive Appears comfortable Breathing slow and has a lot of secretions Review of Systems Review of Systems: Yes Unobtainable due to mental status Physical Exam Vital Signs: Vital Signs: Last Vital Signs Temp 96.7 F L 04/27/21 07:10 Pulse 118 H 04/27/21 07:10 Resp 10 L 04/28/21 10:00 BP 98/57 L 04/27/21 07:10 Pulse Ox 62 L 04/27/21 07:10 BMI result Body Mass Index 14.9 Gen: agonal breathing Lungs: clear Heart: RRR Neuro: somnolent Objective Data Active Medications Morphine Sulfate () 100 mg in 100 mls @ 0 mls/hr IVCONT .Q0M [facility]; Protocol Last Admin: 04/27/21 15:48 Dose: 4 mg/hr, 4 mls/hr Documented by: RAMÓN Lorazepam (Lorazepam 2 Mg/Ml Vial) 1 mg IVPUSH Q2H PRN PRN Reason: anxiety/restlessness Morphine Sulfate (Morphine Sulfate 4 Mg/Ml Cartridge) 4 mg IVPUSH ONCE PRN; Protocol PRN Reason: anxiety/restlessness Last Admin: 04/25/21 15:55 Dose: 4 mg Documented by: COTEMA Scopolamine (Scopolamine 1.5 Mg Patch.Td.3) 1.5 mg TRANSDERMA Q72H [facility] Last Admin: 04/28/21 10:59 Dose: 1.5 mg Documented by: VANI Labs CBC & Chem 7: 04/25/21 09:19 04/24/21 05:40 Assessment and Plan (1) Acute respiratory failure with hypoxia: Status: Acute [facility] hospital d#10 76yo F with advanced Alzheimer's dementia admitted to ICU with acute hypoxic respiratory failure due to aspiration, requiring intubation + pressor support extubated, stepped down to floor, 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 pt anticipated to pass away within a few days Quality Stroke Does the patient have a stroke diagnosis?: No VTE Prior VTE?: No VTE Risk Level:: Medical - moderate - high VTE Device Contraindication: Treatment Not Indicated VTE Drug Contraindication: N/A - Med Ordered
--- NOTE | 2021-04-28 15:24 | MHC.CM.PN ---
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
[2021-04-28] MEDS: Morphine Sulfate/NS 100 MG/100 ML PLAST..BAG IVCONT (17:12)
[2021-04-29] VITALS: RESP 12
[2021-04-29 08:00] VITALS: BP 134/73; PULSE 127; RESP 16; TEMP 36; O2SAT 60
[2021-04-29] MEDS: Morphine Sulfate 4 MG/ML CARTRIDGE IVPUSH (10:35)
--- NOTE | 2021-04-29 10:50 | PC.NURSE ---
first assessment of patient was at 10am. Patient seemed a bit more restless that yesterday. Upon inspection, noticed that IV was infiltrated. (unsure for how long-IV was in right FA and entire FA swollen in addition to right hand). Dr. Gould notified of finding. IV replaced in left FA and PERFECT BIND MACHINE OPERATOR resumed. Patient also given an addition bolus dose of Morphine 4mg.
[2021-04-29] MEDS: Morphine Sulfate/NS 100 MG/100 ML PLAST..BAG IVCONT (12:55)
--- NOTE | 2021-04-29 14:49 | P.PNIM_ITS ---
Subjective Subjective Date of Service: 04/29/21 Interval History: Seems less comfortable. IV was infiltrated so she was likely getting very little morphine. Review of Systems Review of Systems: Yes Unobtainable due to mental status Physical Exam Vital Signs: Vital Signs: Last Vital Signs Temp 96.8 F 04/29/21 08:00 Pulse 127 H 04/29/21 08:00 Resp 16 04/29/21 08:00 BP 134/73 04/29/21 08:00 Pulse Ox 60 L 04/29/21 08:00 BMI result Body Mass Index 14.9 gen: chronically ill, in mild respiratory distress, malnourished-appearing lungs: diminished CV: tachycardic no m/r/g ext: cool extremities neuro: not responsive psych: impaired insight Objective Data Active Medications Morphine Sulfate () 100 mg in 100 mls @ 0 mls/hr IVCONT .Q0M [facility]; Protocol Last Admin: 04/29/21 12:55 Dose: 4 mg/hr, 4 mls/hr Documented by: DEE Lorazepam (Lorazepam 2 Mg/Ml Vial) 1 mg IVPUSH Q2H PRN PRN Reason: anxiety/restlessness Morphine Sulfate (Morphine Sulfate 4 Mg/Ml Cartridge) 4 mg IVPUSH ONCE PRN; Protocol PRN Reason: anxiety/restlessness Last Admin: 04/25/21 15:55 Dose: 4 mg Documented by: COTEMA Scopolamine (Scopolamine 1.5 Mg Patch.Td.3) 1.5 mg TRANSDERMA Q72H [facility] Last Admin: 04/28/21 10:59 Dose: 1.5 mg Documented by: VANI Labs CBC & Chem 7: 04/25/21 09:19 04/24/21 05:40 Assessment and Plan (1) Acute respiratory failure with hypoxia: Status: Acute Plan hospital d#[id number] 76yo F with advanced Alzheimer's dementia admitted to ICU with acute hypoxic respiratory failure due to aspiration, requiring intubation + pressor support extubated, stepped down to floor, 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 pt anticipated to pass away within a few days Quality Stroke Does the patient have a stroke diagnosis?: No VTE Prior VTE?: No VTE Risk Level:: Medical - moderate - high VTE Device Contraindication: Treatment Not Indicated VTE Drug Contraindication: N/A - Med Ordered
--- NOTE | 2021-04-29 16:36 | P.DN_ITS ---
Discharge Sum: Prov Provider Primary care physician: Lani Whitfield MD Admitting clinician: Kimberli Birmingham Consults: 04/20/21 13:31 Consult to General Surgery Routine Consulting Provider: [facility] [place] [facility] Reason for consultation: Gastrostomy placement Has provider been notified: No Pronouncing clinician: Valencia Gould Discharge Sum: Diag PCOD Cause of : Acute respiratory failure Contributing Factors (1) Acute respiratory failure with hypoxia: (2) Aspiration into airway: (3) Alzheimer disease: Discharge Sum: Summary Date and Time Date of admission: 04/19/21 22:39 Date of : 04/29/21 Time of : 15:32 Summary Details: From admission H+P by spool winder Kimberli Birmingham NP, 04/19/21: The patient is a 76-year-old female with past medical history is of? advanced Alzheimer's? dementia, nonverbal at baseline, diabetes mellitus, hypertension, hyperlipidemia? with recent admission in February 2021? for sepsis UTI who presented to the emergency room with? complaints of altered mental status.? Family states the patient has been having? productive cough in the past 2 days,? but today? she became more weak and unable? to open her eyes.? En route to ED,? patient respiratory status worsened,? requiring bag valve mask ventilation EMS,? code status was addressed with family who wished for the patient to be intubated. ? She was intubated? shortly after arrival in the emergency room.? In the emergency room she was? tachycardic,? tachypneic,? with blood pressures? SBP in 80s.? Afebrile.? ?Laboratory data significant for ? WBC 16,? hemoglobin 18, hematocrit 61, sodium 163, chloride 126, BUN 50 creatinine 1.22.? ?UA? positive for? UTI ? Imaging:?? Chest x-ray concerning for some aspiration event ?Patient will be admitted to the ICU? for acute hypoxic respiratory failure? requiring intubation This 76yo F with advanced Alzheimer's dementia was admitted to ICU with acute hypoxic respiratory failure due to aspiration, requiring intubation + pressor support. PEG was placed on 04/21/21 and she was extubated on 04/22/21 and stepped down to the IMC on 04/23/21. 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 She on 04/29/21 at 15:52. Additional Data Confirmation of as documented by pronouncing clinician: no pulse, no re spirations, no heart sounds, pupils fixed and dilated and other (no corneal reflex) Family: at bedside Attending physician: Valencia Gould MD Was code activated?: No Autopsy requested?: No disability insurance claim examiner notified?: No Organ bank notified?: No Hospice patient?: Yes (OPERATIONS PROCESSOR)
--- NOTE | 2021-04-29 17:52 | PC.NURSE ---
no pulse no respiration at 15:45, Dr Gould called to pronounce the patient, [place] [facility] called, Family remains with the body in room 465
== END 2021-04-29 19:25 | disposition expired | DRG 208 ==
LOC: HO.ED 21:27 → HO.EDOVER 22:49 → HO.ICU 22:52 → HO.IMC 04-24 10:40
PROVIDERS: Hospitalist; Internal Medicine Pulmonary Disease; Surgery; Admitting Provider Registered Nurse Community Health; Emergency Provider Emergency Medicine; PCP Internal Medicine; Visit Provider Family Medicine
PROC: 0DH63UZ Insertion of Feeding Device into Stomach, Percutaneous Approach (ICD-10-PCS; CPT 43246; principal; 2021-04-21 13:20)
DX: J96.01 Acute respiratory failure with hypoxia (principal); J69.0 Pneumonitis due to inhalation of food and vomit; N39.0 Urinary tract infection, site not specified; N17.9 Acute kidney failure, unspecified; E87.0 Hyperosmolality and hypernatremia; E44.0 Moderate protein-calorie malnutrition; Z68.1 Body mass index [BMI] 19.9 or less, adult; G30.9 Alzheimer's disease, unspecified; F02.80 Dementia in other diseases classified elsewhere, unspecified severity, without behavioral disturbance, psychotic disturbance, mood disturbance, and anxiety; K21.9 Gastro-esophageal reflux disease without esophagitis; E86.0 Dehydration; E11.9 Type 2 diabetes mellitus without complications; E78.5 Hyperlipidemia, unspecified; R62.7 Adult failure to thrive; E87.6 Hypokalemia; L89.622 Pressure ulcer of left heel, stage 2; L89.152 Pressure ulcer of sacral region, stage 2; B96.20 Unspecified Escherichia coli [E. coli] as the cause of diseases classified elsewhere; Z20.822 Contact with and (suspected) exposure to COVID-19; Z88.0 Allergy status to penicillin; Z88.5 Allergy status to narcotic agent; Z79.2 Long term (current) use of antibiotics; Z79.899 Other long term (current) drug therapy
CPT/HCPCS: 36415; 71045; 80048; 80053; 81001; 81003; 82040; 82803; 82947; 83605; 83735; 83880; 84100; 84443; 84484; 85025; 85379; 87040; 87070; 87077; 87086; 87088; 87186; 87205; 87635; 93005; 94002; 94003; 96361; 96365; 96367; 96375; 99024; 99285; 99291; 99292; J0330; J0690; J0692; J0696; J1940; J2185; J2270; J3010; J3370; P9047